=== PATIENT | male | born 1960 | race Caucasian/White ===

== ENCOUNTER → 2017-01-16 | Outpatient (CLI) | payer OTHER ==
[2017-01-16 16:34] LABS: TOTAL IRON BINDING CAPACITY 114 UG/DL (250-450)
== END ==
LOC: M LAB 15:36
PROVIDERS: ATTEND Internal Medicine Gastroenterology
DX: K76.6 Portal hypertension (principal); K70.11 Alcoholic hepatitis with ascites

== ENCOUNTER → 2017-01-18 | Outpatient (CLI) | payer OTHER ==
[2017-01-18 08:28] LABS: BASO % 0.8 % (0.0-1.0); EOS # 0.1 10^3/uL (0.0-0.50); EOS % 1.1 % (0.0-3.0); IMMATURE GRANULOCYTE % 0.4 % (0-0); LYMPH % 38.2 % (24.0-44.0); MEAN CORPUSCULAR HEMOGLOBIN 35.7 pg (27.0-33.0); MEAN CORPUSCULAR VOLUME 96.6 fl (80.0-96.0); MONO # 0.9 10^3/uL (0.0-0.8); MONO % 16.2 % (0.0-5.0); NEUTROPHILS # 2.3 10^3/uL (1.8-7.7); NEUTROPHILS % 43.3 % (36.0-66.0); PLATELET COUNT, AUTOMATED 198 10^3/uL (150-450); RED CELL DISTRIBUTION WIDTH 13.6 % (11.5-14.5); WHITE BLOOD COUNT 5.3 10^3/uL (4.0-10.0)
[2017-01-18 08:33] LABS: ADD MANUAL DIFFER NO; DIFF SLIDE NUMBER 142; MEAN CORPUSCULAR HGB CONC 36.9 g/dl (32.0-36.5)
[2017-01-18 08:39] LABS: INR 1.26
[2017-01-18 08:49] LABS: ALBUMIN/GLOBULIN RATIO 0.38 (1.00-1.93); ALKALINE PHOSPHATASE 69 U/L (45-117); ALT/SGPT 21 U/L (12-78); ANION GAP 7 MEQ/L (8-16); AST/SGOT 52 U/L (7-37); BILIRUBIN,TOTAL 2.7 MG/DL (0.2-1.0); BLOOD UREA NITROGEN 3 MG/DL (7-18); CALCIUM LEVEL 7.7 MG/DL (8.5-10.1); CARBON DIOXIDE LEVEL 34 MEQ/L (21-32); CHLORIDE LEVEL 91 MEQ/L (98-107); CREATININE FOR GFR 0.77 MG/DL (0.70-1.30); GLOMERULAR FILTRATION RATE > 60.0 (>56); GLUCOSE, FASTING 98 MG/DL (70-105); POTASSIUM SERUM 2.9 MEQ/L (3.5-5.1); SODIUM LEVEL 132 MEQ/L (136-145); TOTAL PROTEIN 7.2 GM/DL (6.4-8.2)
--- NOTE | 2017-01-18 09:19 | REP ---
Right upper quadrant sonography: History: Alcoholic hepatitis with ascites. No comparison studies. Findings: Scanning through right upper quadrant of the abdomen demonstrates coarse liver texture and increased echogenicity in the liver diffusely. This may reflect cirrhosis and poor fatty infiltration. The liver is not enlarged. No focal liver lesion is seen. Bile ducts are not visibly dilated. The common bile duct could not be seen. There is moderate to large amount of diffuse abdominal ascites. Pancreas is obscured by abdominal gas. A normal sized thin-walled gallbladder is seen without evidence of stone or polyp. No right renal abnormality is noted. The right kidney measures 10.4 x 5.3 x 4.3 cm. Impression: Moderate to large amount of ascites. Coarse liver texture micronodular liver capsular margin and increased echogenicity in the liver question cirrhosis. No focal liver lesion seen. Signed by Naga Alvarez MD 01/18/2017 11:18 A
== END ==
LOC: M RAD 08:05
PROVIDERS: ATTEND Internal Medicine Gastroenterology
DX: K70.10 Alcoholic hepatitis without ascites (principal)

== ENCOUNTER → 2017-01-20 | Outpatient (CLI) | payer OTHER ==
[~2017-01-20] MED LIST: BENA25CA4 PO; POTA20TA6 PO; PRIL20CA9 PO; PROAAER10 INH; SPIR50TA2 PO
[2017-01-20 10:54] LABS: ANION GAP 8 MEQ/L (8-16); BLOOD UREA NITROGEN 4 MG/DL (7-18); CALCIUM LEVEL 8.2 MG/DL (8.5-10.1); CARBON DIOXIDE LEVEL 34 MEQ/L (21-32); CHLORIDE LEVEL 90 MEQ/L (98-107); CREATININE FOR GFR 0.67 MG/DL (0.70-1.30); GLOMERULAR FILTRATION RATE > 60.0 (>56); GLUCOSE, FASTING 101 MG/DL (70-105); POTASSIUM SERUM 2.5 MEQ/L (3.5-5.1); SODIUM LEVEL 132 MEQ/L (136-145)
[2017-01-20 12:40] LABS: MAGNESIUM LEVEL 1.9 MG/DL (1.8-2.4)
== END ==
LOC: M LAB 09:07
PROVIDERS: ATTEND Internal Medicine Gastroenterology
DX: K70.11 Alcoholic hepatitis with ascites (principal)

== ENCOUNTER → 2017-01-23 | Outpatient (CLI) | payer OTHER ==
[2017-01-23 11:54] LABS: ANION GAP 6 MEQ/L (8-16); BLOOD UREA NITROGEN 4 MG/DL (7-18); CALCIUM LEVEL 8.4 MG/DL (8.5-10.1); CARBON DIOXIDE LEVEL 32 MEQ/L (21-32); CHLORIDE LEVEL 96 MEQ/L (98-107); CREATININE FOR GFR 0.77 MG/DL (0.70-1.30); GLOMERULAR FILTRATION RATE > 60.0 (>56); GLUCOSE, FASTING 118 MG/DL (70-105); POTASSIUM SERUM 3.2 MEQ/L (3.5-5.1); SODIUM LEVEL 134 MEQ/L (136-145)
== END ==
LOC: M LAB 10:46
PROVIDERS: ATTEND Internal Medicine Gastroenterology
DX: K70.11 Alcoholic hepatitis with ascites (principal)

== ENCOUNTER 2017-01-31 08:56 | Day surgery (SDC) | payer OTHER ==
[~2017-01-31] VITALS: Ht 180.3 cm; Wt 68.0 kg
[2017-01-31] MEDS ORDERED: NS 1,000 ML IV ONE (09:45)
[2017-01-31] MEDS ORDERED: PROPOFOL 200 MG/20 ML VIAL As Ordered ONE (10:54)
[2017-01-31] MEDS ORDERED: LIDOCAINE 2% INJ 100 MG/5 ML SDV (FOR ANES.) As Ordered ONE (10:54)
--- NOTE | 2017-01-31 11:05 | ROOR ---
Patient Name: Joe Hinds Procedure Date: 01/31/2017 10:49 AM Date of : 1960 Age: 56 Room: [facility] Gender: Male Note Status: Finalized Procedure: Upper GI endoscopy Indications: Portal hypertension rule out esophageal varices Providers: Amari DELGADO MD Referring MD: Samir Pimentel MD Requesting Provider: Medicines: Monitored Anesthesia Care Complications: No immediate complications. Procedure: Pre-Anesthesia Assessment: - The heart rate, respiratory rate, oxygen saturations, blood pressure, adequacy of pulmonary ventilation, and response to care were monitored throughout the procedure. The Endoscope was introduced through the mouth, and advanced to the second part of duodenum. The upper GI endoscopy was accomplished without difficulty. The patient tolerated the procedure well. Findings: The esophagus was normal. The stomach was normal. The examined duodenum was normal. Impression: - Normal esophagus. - Normal stomach. - Normal examined duodenum. - (there is perhaps very mild portal hypertensive gastropathy, but I see no varices in esophagus or cardia/stomach) - No specimens collected. Recommendation: - Observe patient's clinical course. - Continue present medications. - You will need Hepatoma surveillance with Ultrasound of liver and AFP(Alpha Fetoprotein) blood work every 6-8 months. I will leave this up to your primary team. - Repeat upper endoscopy in 1 year for surveillance. Amari Delgado MD Amari DELGADO MD 01/31/2017 11:05:26 AM This report has been signed electronically. Number of Addenda: 0 Note Initiated On: 01/31/2017 10:49 AM Estimated Blood Loss: Estimated blood loss: none.
[2017-01-31 11:29] VITALS: BP 121/80
== END 2017-01-31 11:30 | disposition home or self-care (01) ==
LOC: M OPP 08:56
PROVIDERS: ATTEND Internal Medicine Gastroenterology
DX: K76.6 Portal hypertension (principal); K21.9 Gastro-esophageal reflux disease without esophagitis; R12 Heartburn; K74.60 Unspecified cirrhosis of liver; R18.8 Other ascites; F17.210 Nicotine dependence, cigarettes, uncomplicated; Z79.899 Other long term (current) drug therapy

== ENCOUNTER → 2017-02-02 | Outpatient (CLI) | payer OTHER ==
[2017-02-02 11:46] LABS: ANION GAP 9 MEQ/L (8-16); BLOOD UREA NITROGEN 5 MG/DL (7-18); CALCIUM LEVEL 7.8 MG/DL (8.5-10.1); CARBON DIOXIDE LEVEL 25 MEQ/L (21-32); CHLORIDE LEVEL 103 MEQ/L (98-107); GLOMERULAR FILTRATION RATE > 60.0 (>56); GLUCOSE, FASTING 79 MG/DL (70-105); POTASSIUM SERUM 3.5 MEQ/L (3.5-5.1); SODIUM LEVEL 137 MEQ/L (136-145)
== END ==
LOC: M LAB 11:02
PROVIDERS: ATTEND Internal Medicine Gastroenterology
DX: E87.6 Hypokalemia (principal)

== ENCOUNTER → 2017-02-16 | Outpatient (CLI) | payer OTHER ==
[2017-02-16 16:40] LABS: ANION GAP 7 MEQ/L (8-16); BLOOD UREA NITROGEN 3 MG/DL (7-18); CALCIUM LEVEL 7.7 MG/DL (8.5-10.1); CARBON DIOXIDE LEVEL 28 MEQ/L (21-32); CHLORIDE LEVEL 100 MEQ/L (98-107); CREATININE FOR GFR 0.61 MG/DL (0.70-1.30); GLOMERULAR FILTRATION RATE > 60.0 (>56); GLUCOSE, FASTING 85 MG/DL (70-105); POTASSIUM SERUM 3.4 MEQ/L (3.5-5.1); SODIUM LEVEL 135 MEQ/L (136-145)
== END ==
LOC: M LAB 15:11
DX: E87.6 Hypokalemia (principal)
CPT/HCPCS: 80048

== ENCOUNTER → 2017-03-09 | Outpatient (REF) | payer OTHER ==
[2017-03-09 14:21] LABS: INR 1.09; PARTIAL THROMBOPLASTIN TIME 33.9 SECONDS (26.8-37.9); PROTHROMBIN TIME 14.3 SECONDS (12.4-14.5)
[2017-03-09 14:33] LABS: AMMONIA 29 uMOL/L (<32)
== END ==
LOC: M LAB REF 13:34
DX: K74.60 Unspecified cirrhosis of liver (principal)

== ENCOUNTER → 2017-03-14 | Outpatient (CLI) | payer OTHER | LOC: M RADPRO 09:42 | DX: R18.8 Other ascites (principal); Z79.899 Other long term (current) drug therapy | CPT/HCPCS: 49083 ==

== ENCOUNTER → 2017-04-12 | Outpatient (CLI) | payer OTHER ==
[2017-04-12 16:43] LABS: INR 1.15; PROTHROMBIN TIME 14.9 SECONDS (12.4-14.5)
[2017-04-12 16:44] LABS: PARTIAL THROMBOPLASTIN TIME 33.8 SECONDS (26.8-37.9)
[2017-04-12 16:54] LABS: ALBUMIN 2.3 GM/DL (3.2-5.2); ALBUMIN/GLOBULIN RATIO 0.52 (1.00-1.93); ALKALINE PHOSPHATASE 93 U/L (45-117); ALT/SGPT 10 U/L (12-78); ANION GAP 6 MEQ/L (8-16); AST/SGOT 19 U/L (7-37); BILIRUBIN,TOTAL 0.5 MG/DL (0.2-1.0); BLOOD UREA NITROGEN 5 MG/DL (7-18); CALCIUM LEVEL 8.3 MG/DL (8.5-10.1); CARBON DIOXIDE LEVEL 30 MEQ/L (21-32); CHLORIDE LEVEL 107 MEQ/L (98-107); CREATININE FOR GFR 0.74 MG/DL (0.70-1.30); GLOMERULAR FILTRATION RATE > 60.0 (>56); GLUCOSE, FASTING 83 MG/DL (70-100); POTASSIUM SERUM 3.7 MEQ/L (3.5-5.1); SODIUM LEVEL 143 MEQ/L (136-145); TOTAL PROTEIN 6.7 GM/DL (6.4-8.2)
[2017-04-12 18:42] LABS: BASO % 0.7 % (0.0-1.0); EOS # 0.1 10^3/uL (0.0-0.50); EOS % 1.1 % (0.0-3.0); HEMOGLOBIN 13.5 g/dl (14.0-18.0); IMMATURE GRANULOCYTE % 0.2 % (0-3.0); LYMPH # 1.7 10^3/uL (1.5-4.5); LYMPH % 30.2 % (24.0-44.0); MEAN CORPUSCULAR HEMOGLOBIN 32.7 pg (27.0-33.0); MEAN CORPUSCULAR HGB CONC 33.8 g/dl (32.0-36.5); MEAN CORPUSCULAR VOLUME 96.9 fl (80.0-96.0); MONO # 0.9 10^3/uL (0.0-0.8); MONO % 16.2 % (0.0-5.0); NEUTROPHILS # 2.9 10^3/uL (1.8-7.7); NEUTROPHILS % 51.6 % (36.0-66.0); PLATELET COUNT, AUTOMATED 211 10^3/uL (150-450); RED BLOOD COUNT 4.13 10^6/uL (4.30-6.10); RED CELL DISTRIBUTION WIDTH 13.3 % (11.5-14.5); WHITE BLOOD COUNT 5.6 10^3/uL (4.0-10.0)
== END ==
LOC: M LAB 15:40
DX: K70.31 Alcoholic cirrhosis of liver with ascites (principal)
CPT/HCPCS: 80053

== ENCOUNTER → 2017-04-27 | Outpatient (CLI) | payer OTHER | LOC: M RADPRO 08:49 | DX: K70.11 Alcoholic hepatitis with ascites (principal); Z79.899 Other long term (current) drug therapy | CPT/HCPCS: 49083 ==

== ENCOUNTER → 2017-06-15 | Outpatient (CLI) | payer OTHER ==
[2017-06-15 16:59] LABS: BASO # 0.1 10^3/uL (0.0-0.2); BASO % 0.7 % (0.0-1.0); EOS # 0.1 10^3/uL (0.0-0.50); EOS % 0.9 % (0.0-3.0); HEMATOCRIT 43.7 % (42.0-52.0); IMMATURE GRANULOCYTE % 0.3 % (0-3.0); LYMPH % 27.9 % (24.0-44.0); MEAN CORPUSCULAR HEMOGLOBIN 32.5 pg (27.0-33.0); MEAN CORPUSCULAR HGB CONC 34.3 g/dl (32.0-36.5); MEAN CORPUSCULAR VOLUME 94.8 fl (80.0-96.0); MONO # 1.2 10^3/uL (0.0-0.8); MONO % 16.5 % (0.0-5.0); NEUTROPHILS # 3.8 10^3/uL (1.8-7.7); NEUTROPHILS % 53.7 % (36.0-66.0); PLATELET COUNT, AUTOMATED 250 10^3/uL (150-450); RED BLOOD COUNT 4.61 10^6/uL (4.30-6.10); RED CELL DISTRIBUTION WIDTH 14.4 % (11.5-14.5); WHITE BLOOD COUNT 7.1 10^3/uL (4.0-10.0)
[2017-06-15 17:26] LABS: ALBUMIN 2.9 GM/DL (3.2-5.2); ALBUMIN/GLOBULIN RATIO 0.63 (1.00-1.93); ALKALINE PHOSPHATASE 85 U/L (45-117); ALT/SGPT 13 U/L (12-78); ANION GAP 5 MEQ/L (8-16); AST/SGOT 22 U/L (7-37); BILIRUBIN,TOTAL 0.6 MG/DL (0.2-1.0); BLOOD UREA NITROGEN 5 MG/DL (7-18); CALCIUM LEVEL 8.5 MG/DL (8.5-10.1); CARBON DIOXIDE LEVEL 31 MEQ/L (21-32); CHLORIDE LEVEL 101 MEQ/L (98-107); CREATININE FOR GFR 0.77 MG/DL (0.70-1.30); GLOMERULAR FILTRATION RATE > 60.0 (>56); GLUCOSE, FASTING 78 MG/DL (70-100); POTASSIUM SERUM 3.6 MEQ/L (3.5-5.1); SODIUM LEVEL 137 MEQ/L (136-145); TOTAL PROTEIN 7.5 GM/DL (6.4-8.2)
== END ==
LOC: M LAB 16:05
DX: K70.31 Alcoholic cirrhosis of liver with ascites (principal)

== ENCOUNTER → 2017-07-04 | Outpatient (CLI) | payer OTHER ==
[2017-07-04 11:18] LABS: ANION GAP 5 MEQ/L (8-16); BLOOD UREA NITROGEN 4 MG/DL (7-18); CARBON DIOXIDE LEVEL 31 MEQ/L (21-32); CHLORIDE LEVEL 102 MEQ/L (98-107); CREATININE FOR GFR 0.78 MG/DL (0.70-1.30); GLOMERULAR FILTRATION RATE > 60.0 (>56); GLUCOSE, FASTING 87 MG/DL (70-100); POTASSIUM SERUM 4.2 MEQ/L (3.5-5.1); SODIUM LEVEL 138 MEQ/L (136-145)
== END ==
LOC: M LAB 10:15
DX: E87.6 Hypokalemia (principal)
CPT/HCPCS: 80048

== ENCOUNTER → 2017-07-22 | Outpatient (CLI) | payer OTHER ==
[2017-07-22 11:11] LABS: ANION GAP 5 MEQ/L (8-16); BLOOD UREA NITROGEN 10 MG/DL (7-18); CALCIUM LEVEL 9.5 MG/DL (8.5-10.1); CARBON DIOXIDE LEVEL 32 MEQ/L (21-32); CHLORIDE LEVEL 100 MEQ/L (98-107); CREATININE FOR GFR 0.91 MG/DL (0.70-1.30); GLOMERULAR FILTRATION RATE > 60.0 (>56); GLUCOSE, FASTING 78 MG/DL (70-100); SODIUM LEVEL 137 MEQ/L (136-145)
[2017-07-22 11:13] LABS: POTASSIUM SERUM 5.4 MEQ/L (3.5-5.1)
== END ==
LOC: M LAB 10:02
DX: K70.31 Alcoholic cirrhosis of liver with ascites (principal)

== ENCOUNTER → 2017-08-01 | Outpatient (CLI) | payer OTHER | LOC: M RAD 07:01 | DX: K70.31 Alcoholic cirrhosis of liver with ascites (principal) | CPT/HCPCS: 76705 ==

== ENCOUNTER → 2017-08-14 | Outpatient (REF) | payer OTHER ==
[2017-08-15 09:48] LABS: ALBUMIN 3.3 GM/DL (3.2-5.2); ALKALINE PHOSPHATASE 88 U/L (45-117); ALT/SGPT 21 U/L (12-78); ANION GAP 8 MEQ/L (8-16); AST/SGOT 24 U/L (7-37); BILIRUBIN,TOTAL 0.4 MG/DL (0.2-1.0); BLOOD UREA NITROGEN 5 MG/DL (7-18); CALCIUM LEVEL 8.5 MG/DL (8.5-10.1); CARBON DIOXIDE LEVEL 30 MEQ/L (21-32); CHLORIDE LEVEL 103 MEQ/L (98-107); GLOMERULAR FILTRATION RATE > 60.0 (>56); GLUCOSE, FASTING 81 MG/DL (70-100); POTASSIUM SERUM 4.3 MEQ/L (3.5-5.1); SODIUM LEVEL 141 MEQ/L (136-145); TOTAL PROTEIN 7.4 GM/DL (6.4-8.2)
[2017-08-15 09:54] LABS: ALPHA FETOPROTEIN TUMOR QUANT 4.9 NG/ML (<8.1)
== END ==
LOC: M LABDRWAD 09:02
DX: K70.31 Alcoholic cirrhosis of liver with ascites (principal)
CPT/HCPCS: 80053

== ENCOUNTER → 2017-11-15 | Outpatient (REF) | payer OTHER ==
[2017-11-15 12:26] LABS: BASO % 0.8 % (0.0-1.0); EOS # 0.1 10^3/uL (0.0-0.50); EOS % 1.7 % (0.0-3.0); HEMATOCRIT 48.3 % (42.0-52.0); HEMOGLOBIN 16.3 g/dl (13.5-17.5); IMMATURE GRANULOCYTE % 0.2 % (0-3.0); LYMPH # 1.4 10^3/uL (1.5-4.5); LYMPH % 29.8 % (24.0-44.0); MEAN CORPUSCULAR HEMOGLOBIN 34.8 pg (27.0-33.0); MEAN CORPUSCULAR HGB CONC 33.7 g/dl (32.0-36.5); MEAN CORPUSCULAR VOLUME 103.2 fl (80.0-96.0); MONO # 0.7 10^3/uL (0.0-0.8); MONO % 13.7 % (0.0-5.0); NEUTROPHILS # 2.6 10^3/uL (1.8-7.7); NEUTROPHILS % 53.8 % (36.0-66.0); PLATELET COUNT, AUTOMATED 193 10^3/uL (150-450); RED BLOOD COUNT 4.68 10^6/uL (4.30-6.10); RED CELL DISTRIBUTION WIDTH 14.5 % (11.5-14.5); WHITE BLOOD COUNT 4.8 10^3/uL (4.0-10.0)
[2017-11-15 12:34] LABS: INR 1.02; PROTHROMBIN TIME 13.5 SECONDS (12.1-14.4)
[2017-11-15 14:40] LABS: ALBUMIN 3.5 GM/DL (3.2-5.2); ALBUMIN/GLOBULIN RATIO 0.88 (1.00-1.93); ALKALINE PHOSPHATASE 83 U/L (45-117); ALT/SGPT 19 U/L (12-78); ANION GAP 9 MEQ/L (8-16); AST/SGOT 23 U/L (7-37); BILIRUBIN,TOTAL 0.6 MG/DL (0.2-1.0); BLOOD UREA NITROGEN 5 MG/DL (7-18); CALCIUM LEVEL 9.1 MG/DL (8.5-10.1); CARBON DIOXIDE LEVEL 26 MEQ/L (21-32); CHLORIDE LEVEL 106 MEQ/L (98-107); CREATININE FOR GFR 0.82 MG/DL (0.70-1.30); GLOMERULAR FILTRATION RATE > 60.0 (>56); GLUCOSE, FASTING 106 MG/DL (70-100); POTASSIUM SERUM 4.4 MEQ/L (3.5-5.1); SODIUM LEVEL 141 MEQ/L (136-145); TOTAL PROTEIN 7.5 GM/DL (6.4-8.2)
== END ==
LOC: M LABDRWAD 12:11
DX: K70.31 Alcoholic cirrhosis of liver with ascites (principal); K70.11 Alcoholic hepatitis with ascites

== ENCOUNTER → 2018-02-07 | Outpatient (REF) | payer OTHER ==
[~2018-02-07] MED LIST changes: -SPIR50TA2 PO; +SPIR50TA4 PO
[2018-02-07 12:47] LABS: BASO # 0.1 10^3/uL (0.0-0.2); BASO % 0.9 % (0.0-1.0); EOS # 0.1 10^3/uL (0.0-0.50); EOS % 0.9 % (0.0-3.0); HEMATOCRIT 56.1 % (42.0-52.0); LYMPH # 1.3 10^3/uL (1.5-4.5); LYMPH % 19.4 % (24.0-44.0); MEAN CORPUSCULAR HEMOGLOBIN 35.2 pg (27.0-33.0); MEAN CORPUSCULAR HGB CONC 35.8 g/dl (32.0-36.5); MEAN CORPUSCULAR VOLUME 98.2 fl (80.0-96.0); MONO % 15.2 % (0.0-5.0); NEUTROPHILS # 4.2 10^3/uL (1.8-7.7); NEUTROPHILS % 63.1 % (36.0-66.0); PLATELET COUNT, AUTOMATED 203 10^3/uL (150-450); RED BLOOD COUNT 5.71 10^6/uL (4.30-6.10); WHITE BLOOD COUNT 6.6 10^3/uL (4.0-10.0)
[2018-02-07 13:00] LABS: INR 1.04; PROTHROMBIN TIME 13.7 SECONDS (12.1-14.4)
[2018-02-07 13:12] LABS: ALBUMIN 3.9 GM/DL (3.2-5.2); ALT/SGPT 51 U/L (12-78); BILIRUBIN,TOTAL 0.9 MG/DL (0.2-1.0); BLOOD UREA NITROGEN 5 MG/DL (7-18); CALCIUM LEVEL 9.5 MG/DL (8.5-10.1); CARBON DIOXIDE LEVEL 30 MEQ/L (21-32); CHLORIDE LEVEL 97 MEQ/L (98-107); CREATININE FOR GFR 0.92 MG/DL (0.70-1.30); GLOMERULAR FILTRATION RATE > 60.0 (>56); GLUCOSE, FASTING 106 MG/DL (70-100); POTASSIUM SERUM 4.2 MEQ/L (3.5-5.1); SODIUM LEVEL 136 MEQ/L (136-145); TOTAL PROTEIN 8.6 GM/DL (6.4-8.2)
[2018-02-07 13:26] LABS: HEMOGLOBIN 20.1 g/dl (13.5-17.5)
== END ==
LOC: M LAB REF 12:29 → M LABDRWAD 12:29
PROVIDERS: ATTEND Internal Medicine Gastroenterology
DX: K70.31 Alcoholic cirrhosis of liver with ascites (principal); K70.11 Alcoholic hepatitis with ascites

== ENCOUNTER → 2018-02-26 | Outpatient (CLI) | payer OTHER ==
--- NOTE | 2018-02-27 04:18 | REP ---
Clinical: Thrombocytopenia. Technique: Real time christensen scale ultrasound examination using curved array transducer. Comparison: 08/01/2017. Findings: The liver is increased echogenicity with poor through transmission suggesting fatty infiltration and/or hepatocellular disease. No focal hepatic lesion identified. Pancreas is incompletely evaluated due to interposed bowel gas. Gallbladder demonstrates stable gallstone versus small polyp with mild gallbladder wall thickening. No biliary ductal dilatation is appreciated and the common bile duct measures 2.9 mm diameter. The right kidney is normal in reniform shape without hydronephrosis and measures 10.8 x 6.0 x 6.3 cm including renovascular calcifications and 1 cm upper pole cyst. Trace ascites noted in the right upper quadrant. Impression: Limited examination due to body habitus and technical factors. Findings suggesting hepatocellular disease. Mild stable gallbladder wall thickening and small gallstone and/or polyp unchanged. Electronically Signed by Aneudy Mott MD 02/27/2018 04:10 A
== END ==
LOC: M RAD 08:41
PROVIDERS: ATTEND Internal Medicine Gastroenterology
DX: D69.6 Thrombocytopenia, unspecified (principal)

== ENCOUNTER → 2018-04-23 | Outpatient (REF) | payer OTHER ==
[2018-04-23 13:43] LABS: BASO # 0.1 10^3/uL (0.0-0.2); EOS % 0.8 % (0.0-3.0); HEMATOCRIT 62.3 % (42.0-52.0); LYMPH # 1.3 10^3/uL (1.5-4.5); LYMPH % 26.7 % (24.0-44.0); MEAN CORPUSCULAR HEMOGLOBIN 34.3 pg (27.0-33.0); MEAN CORPUSCULAR HGB CONC 34.2 g/dl (32.0-36.5); MEAN CORPUSCULAR VOLUME 100.3 fl (80.0-96.0); MONO # 0.9 10^3/uL (0.0-0.8); MONO % 16.9 % (0.0-5.0); NEUTROPHILS # 2.7 10^3/uL (1.8-7.7); PLATELET COUNT, AUTOMATED 180 10^3/uL (150-450); RED BLOOD COUNT 6.21 10^6/uL (4.30-6.10)
[2018-04-23 13:45] LABS: HEMOGLOBIN 21.3 g/dl (13.5-17.5)
== END ==
LOC: M LABDRWAD 12:31
PROVIDERS: ATTEND Internal Medicine Gastroenterology
DX: K70.31 Alcoholic cirrhosis of liver with ascites (principal)

== ENCOUNTER → 2018-05-10 | Outpatient (CLI) | payer OTHER ==
[~2018-05-10] MED LIST changes: +GASTROGRAFIN SOLUTION 30ML (Q9963) As Ordered ONE; +ISOVUE-370 76% 125ML VIAL (Q9967 PER ML) As Ordered ONE; +OMEP20CA3 PO; +TORS10TA3 PO; +TUMS500C PO
--- NOTE | 2018-05-11 16:38 | REP ---
Clinical: Cirrhosis. Liver mass. Technique: Axial arterial, portal venous phase, and delayed phase images of the abdomen using 100 ml Isovue 370 intravenous contrast material with coronal and sagittal re-formations. Findings: Liver demonstrates a subtle nodular contour and somewhat coarsened echotexture consistent with cirrhosis. There appears to be a very subtle vague 4.9 cm mildly hypodense round mass along the medial inferior right lobe just lateral to the caudate lobe best identified on delayed sequence images 42-53. Spleen, pancreas, bilateral adrenal glands are normal. Kidneys demonstrate simple benign cystic changes. Cholelithiasis noted without evidence for acute cholecystitis. No significant, obvious abdominal adenopathy. No ascites. No free air. Visualized enteric system is without obstruction or acute inflammatory process. Impression: 1. Heterogeneous changes to the liver consistent with cirrhosis. A very subtle 4.9 cm rounded hepatic mass medial and inferior to the caudate lobe within the right hepatic lobe is suspected. Pre and postcontrast MRI using hepatic mass protocol may be warranted. No associated adenopathy or ascites appreciated 2. Cholelithiasis. Electronically Signed by Aneudy Mott MD 05/11/2018 04:28 P
== END ==
LOC: M RAD 13:31
PROVIDERS: ATTEND Internal Medicine Medical Oncology
DX: K74.60 Unspecified cirrhosis of liver (principal); K76.89 Other specified diseases of liver; K80.20 Calculus of gallbladder without cholecystitis without obstruction
CPT/HCPCS: 74160; Q9963; Q9967

== ENCOUNTER → 2018-05-18 | Outpatient (CLI) | payer OTHER ==
[~2018-05-18] MED LIST changes: -GASTROGRAFIN SOLUTION 30ML (Q9963) As Ordered ONE; -ISOVUE-370 76% 125ML VIAL (Q9967 PER ML) As Ordered ONE; +PROHANCE 279.3MG/ML 15ML VIAL (A9576) As Ordered ONE
--- NOTE | 2018-05-18 14:42 | REP ---
MRI EXAM OF THE ABDOMEN WITHOUT AND WITH IV GADOLINIUM: HISTORY: Elevated erythropoietin level. Cirrhosis. Possible hepatic mass. Comparison CT study May 10, 2018. TECHNIQUE: Axial coronal imaging planes utilized. T1- and T2-weighted sequences include spin-echo, fast spin echo, diffusion, in and out of phase, and dynamically acquired sequential post gadolinium enhanced images. Gadolinium enhancement dose of 15 mL of intravenous ProHance. MRI FINDINGS: There is no evidence of upper abdominal ascites. There are small cysts in each kidney, the largest is in the upper pole on the right measuring 1.8 cm in greatest diameter. There is evidence of mild gallbladder wall thickening and some possible pericholecystic fluid is seen. The common bile duct is normal in caliber. No intrahepatic ductal dilation is seen. Main pancreatic duct is unremarkable. No pancreatic lesion is observed. The CT finding of a rounded 4.9 cm inferior caudate lobe mass in the liver are not seen. There is a geographic pattern of fatty infiltration of the liver including this portion of the caudate lobe but signal intensity is otherwise normal throughout the liver. There is an accessory splenule. The spleen is not enlarged. No adrenal lesion is seen. Dynamically acquired sequential post gadolinium enhanced images show no abnormal vascularity. There is no evidence of mass lesion on postcontrast imaging. IMPRESSION: Geographic pattern of fatty infiltration of the liver. No hepatic mass lesion is seen. Small bilateral renal cortical cysts. Gallbladder wall thickening and mild pericholecystic fluid. Electronically Signed by Naga Alvarez MD 05/18/2018 03:33 P
== END ==
LOC: M RAD 10:31
PROVIDERS: ATTEND Nurse Practitioner Family
DX: K74.60 Unspecified cirrhosis of liver (principal); K76.0 Fatty (change of) liver, not elsewhere classified; N28.1 Cyst of kidney, acquired
CPT/HCPCS: 74183; A9576

== ENCOUNTER → 2018-10-09 | Outpatient (CLI) | payer OTHER ==
[~2018-10-09] MED LIST changes: -OMEP20CA3 PO; +OMEP20CA4 PO; -PROHANCE 279.3MG/ML 15ML VIAL (A9576) As Ordered ONE
--- NOTE | 2018-10-09 15:15 | REP ---
HISTORY: Tobacco abuse. As per the protocol only lung window images were sent to the read station for interpretation. Prior examination for comparison is 11/07/2008. No abnormal nodules, masses or opacities have developed since the last exam. Incidental calcified granuloma again seen in the right lower lobe. Grossly, the mediastinum and pulmonary blaine are stable showing no evidence of an abnormality. Grossly, the imaged upper abdomen and imaged osseous structures are unchanged and showing no evidence of an abnormality. IMPRESSION: Lung-RADS category 1 examination. Yearly screening is recommended as per the revised Kait Society criteria. Electronically Signed by Kristopher Irvin DO 10/09/2018 03:37 P
== END ==
LOC: M RAD 13:33
PROVIDERS: ATTEND Physician Assistant
DX: F17.210 Nicotine dependence, cigarettes, uncomplicated (principal); Z12.2 Encounter for screening for malignant neoplasm of respiratory organs

== ENCOUNTER → 2018-10-19 | Outpatient (CLI) | payer OTHER ==
[~2018-10-19] MED LIST changes: +OMEP1CAP73 PO; -OMEP20CA4 PO
--- NOTE | 2018-10-24 08:05 | SLEEPCENT ---
DATE OF PROCEDURE: 10/19/2018 ORDERING PROVIDER: Samuel Nolen PA-C, copy to Dr. Pimentel. INTERPRETATION: Nocturnal polysomnography was performed for evaluation of sleep physiology in this patient with a history of excessive somnolence and nonrestorative sleep. 8 hours and 17 minutes of data were reviewed. There were 208 minutes of sleep identified. Sleep latency was prolonged at 182.5 minutes. Rapid eye movement (REM) latency was normal at 80.5 minutes. Sleep architecture, once established, was reasonably good with a prolonged period of wake resulting in reduced sleep efficiency of 42.7%. The patient's electrocardiogram showed sinus rhythm with an average heart rate of 82 beats per minute. EEG showed reasonably normal waveforms for awake and sleep. There were only two respiratory events identified of 10 seconds in duration or greater for an apnea-hypopnea index of 0.6. Snoring was noted over the course of the study and respiratory related arousal index of 0.9. There was significant limb activity early in the study. Only two trains of 30 events noted. Limb movement arousal index however was 16.4. IMPRESSION: 1. Periodic limb movement disorder (G47.61). Limb movement arousal index 16.4 2. Snoring. RECOMMENDATIONS: Interventions to reduce the frequency arousal from limb activity should improve the quality of the patient's sleep.
== END ==
LOC: M SLEEP 19:35
PROVIDERS: ATTEND Physician Assistant
DX: R40.0 Somnolence (principal)

== ENCOUNTER → 2019-02-04 | Outpatient (CLI) | payer OTHER ==
[~2019-02-04] MED LIST changes: +OMEP-172 PO; -OMEP1CAP73 PO
[2019-02-04 10:15] LABS: BASO % 0.6 % (0.0-1.0); EOS % 0.3 % (0.0-3.0); HEMATOCRIT 46.2 % (42.0-52.0); HEMOGLOBIN 15.7 g/dl (13.5-17.5); LYMPH % 15.2 % (24.0-44.0); MEAN CORPUSCULAR HEMOGLOBIN 33.5 pg (27.0-33.0); MEAN CORPUSCULAR VOLUME 98.7 fl (80.0-96.0); MONO # 0.9 10^3/uL (0.0-0.8); MONO % 13.2 % (0.0-5.0); NEUTROPHILS # 4.8 10^3/uL (1.5-8.5); NEUTROPHILS % 70.3 % (36.0-66.0); PLATELET COUNT, AUTOMATED 246 10^3/uL (150-450); RED BLOOD COUNT 4.68 10^6/uL (4.30-6.10); WHITE BLOOD COUNT 6.8 10^3/uL (4.0-10.0)
[2019-02-04 10:48] LABS: ALBUMIN 3.3 GM/DL (3.2-5.2); ALT/SGPT 18 U/L (12-78); BILIRUBIN,TOTAL 1.3 MG/DL (0.2-1.0); BLOOD UREA NITROGEN 6 MG/DL (7-18); CARBON DIOXIDE LEVEL 31 MEQ/L (21-32); CHLORIDE LEVEL 101 MEQ/L (98-107); CREATININE FOR GFR 0.78 MG/DL (0.70-1.30); GLOMERULAR FILTRATION RATE > 60.0 (>56); GLUCOSE, FASTING 115 MG/DL (70-100); POTASSIUM SERUM 4.3 MEQ/L (3.5-5.1); SODIUM LEVEL 138 MEQ/L (136-145); TOTAL PROTEIN 7.9 GM/DL (6.4-8.2)
== END ==
LOC: M LAB 09:43
PROVIDERS: ATTEND Internal Medicine Gastroenterology
DX: K70.31 Alcoholic cirrhosis of liver with ascites (principal)

== ENCOUNTER → 2019-02-05 | Outpatient (CLI) | payer OTHER ==
--- NOTE | 2019-02-05 09:20 | REP ---
Right upper quadrant sonography: History: Cirrhosis with ascites. Comparison CT study and MRI study April 2018. Comparison sonography February 26, 2018. Sonographic findings: Scan quality is inhibited by patient body habitus and bowel gas as before. There are multiple non-shadowing echogenic foci in the neck of the gallbladder. There is mild gallbladder wall thickening again noted, just over 0.3 cm. The common bile duct is normal at 0.4 cm in thickness. No focal hepatic lesion is seen but there is diffusely hyperechoic liver parenchyma which insonates poorly due to fatty infiltration. Limited views of the pancreas show no abnormality. There is no visible ascites. The right kidney measures 11.0 x 5.6 x 5.9 cm. There is an echogenic focus 2.8 mm in diameter in the right renal cortex which may be a small calcification or a focal fibrosis. No hydronephrosis seen. Impression: Fatty liver change. Limited image quality. Sludge versus non-shadowing calculi in the neck of the gallbladder. Minimal gallbladder wall thickening. Electronically Signed by Naga Alvarez MD 02/05/2019 03:25 P
== END ==
LOC: M RAD 08:15
PROVIDERS: ATTEND Internal Medicine Gastroenterology
DX: K70.31 Alcoholic cirrhosis of liver with ascites (principal)

== ENCOUNTER 2019-03-26 16:28 | Inpatient (IN) | payer OTHER ==
[~2019-03-26] VITALS: Ht 180.3 cm; Wt 59.6 kg
[2019-03-26] MEDS: BENZOCAINE 10% 9GM TUBE (ANBESOL) MT SCH
[~2019-03-26 16:28] MED LIST changes: -OMEP-172 PO; +OMEP1CAP73 PO
[2019-03-26] MEDS ORDERED: VENTAER PO (16:36)
[2019-03-26 17:41] LABS: BASO # 0.1 10^3/uL (0.0-0.2); BASO % 0.5 % (0.0-1.0); EOS % 0.1 % (0.0-3.0); HEMATOCRIT 43.6 % (42.0-52.0); HEMOGLOBIN 14.7 g/dl (13.5-17.5); LYMPH # 1.4 10^3/uL (1.5-5.0); LYMPH % 14.6 % (24.0-44.0); MEAN CORPUSCULAR HEMOGLOBIN 31.2 pg (27.0-33.0); MEAN CORPUSCULAR HGB CONC 33.7 g/dl (32.0-36.5); MEAN CORPUSCULAR VOLUME 92.6 fl (80.0-96.0); MONO % 11.1 % (0.0-5.0); NEUTROPHILS # 6.8 10^3/uL (1.5-8.5); NEUTROPHILS % 73.4 % (36.0-66.0); PLATELET COUNT, AUTOMATED 244 10^3/uL (150-450); RED BLOOD COUNT 4.71 10^6/uL (4.30-6.10); WHITE BLOOD COUNT 9.3 10^3/uL (4.0-10.0)
[2019-03-26 17:59] LABS: ALBUMIN 3.5 GM/DL (3.2-5.2); ALT/SGPT 14 U/L (12-78); BILIRUBIN,DIRECT 0.3 MG/DL (0.0-0.2); BILIRUBIN,TOTAL 0.7 MG/DL (0.2-1.0); BLOOD UREA NITROGEN 17 MG/DL (7-18); CALCIUM LEVEL 9.5 MG/DL (8.5-10.1); CARBON DIOXIDE LEVEL 31 MEQ/L (21-32); CHLORIDE LEVEL 96 MEQ/L (98-107); CREATININE FOR GFR 0.76 MG/DL (0.70-1.30); GLOMERULAR FILTRATION RATE > 60.0 (>56); GLUCOSE, FASTING 92 MG/DL (70-100); POTASSIUM SERUM 3.5 MEQ/L (3.5-5.1); SODIUM LEVEL 133 MEQ/L (136-145); TOTAL PROTEIN 8.1 GM/DL (6.4-8.2)
[2019-03-26] MEDS ORDERED: NS 1,000 ML IV SCH (18:15)
[2019-03-26] MEDS ORDERED: ISOVUE-370 76% 100ML VIAL (Q9967) As Ordered ONE (18:25)
--- NOTE | 2019-03-26 18:58 | REPVR ---
PROCEDURE INFORMATION: Exam: CT Neck With Contrast Exam date and time: 03/26/2019 6:14 PM Age: 59 years old Clinical indication: Dysphagia / difficulty swallowing; Throat pain; Additional info: Sore throat, dysphagia, odynophagia TECHNIQUE: Imaging protocol: Computed tomography images of the neck with intravenous contrast. Radiation optimization: All CT scans at this facility use at least one of these dose optimization techniques: automated exposure control; mA and/or kV adjustment per patient size (includes targeted exams where dose is matched to clinical indication); or iterative reconstruction. Contrast material: ISOVUE 370; Contrast volume: 75 ml; Contrast route: IV; COMPARISON: No relevant prior studies available. FINDINGS: Sinuses: There is a left maxillary sinus air-fluid level. Nasopharynx: Unremarkable. Oropharynx: Unremarkable. No significant tonsillar enlargement. Hypopharynx: Unremarkable Larynx: There is a supraglottic laryngeal mass on the left. The left aryepiglottic fold is markedly lobulated and thickened. The epiglottis is thickened and irregular, asymmetric to the left. There is infiltration of the fat between the supraglottic larynx and left hyoid. No extension to the true vocal cords. Retropharyngeal space: Unremarkable. Submandibular/Parotid glands: Normal. Glands are normal in size. Thyroid: Normal. No enlarged or calcified nodules. Lymph nodes: Series 201, image 34, abnormal left level 2 jugular lymph node measuring 2.5 by 1.6 cm within abnormal hypoenhancing center. Craniocaudad dimension is 3 centimetres. Slightly medial to this is a 2nd abnormally enhancing lymph node with short axis of 12 mm. No enlarged or abnormally enhancing lymph nodes on the right. Trachea: Visualized trachea is unremarkable. Lungs: Unremarkable as visualized. Bones/joints: Unremarkable. No acute fracture. Soft tissues: Unremarkable. No significant soft tissue swelling. IMPRESSION: 1. Left supraglottic mass. There is thickening of the epiglottis asymmetric to the left. Although the time course of symptoms is not provided the appearance is more consistent with neoplasm rather than inflammatory disease. 2. Enlarged and irregularly enhancing level 2 left jugular lymph nodes highly suspicious for metastatic adenopathy. Electronically signed by: Scar Barron On 03/26/2019 18:58:16 PM
[2019-03-26] MEDS ORDERED: cefTRIAXone SOD 1 GM in D5W MINI-BAG PLUS 50 ML IV ONE (19:45)
--- NOTE | 2019-03-26 19:45 | HPEPDOC ---
[facility] Medical History & Physical Date of Admission Mar 26, 2019 Date of Service: Mar 26, 2019 Primary Care Physician: JACLYN LEYVA M.D. Attending Physician: CHRISTIAN COLLINS MD History and Physical TIME OF SERVICE: 8:36 PM CHIEF COMPLAINT: Difficulty swallowing HISTORY OF PRESENT ILLNESS: This is a 51-year-old male that presents with complaints gradually worsening of dysphasia for 2 weeks. Whenever he tries to consume solids, the food gets stuck in his throat and he has to force himself to spit it out; he has been able to swallow some liquids and has a muffled voice. Associated symptoms include coughing, fevers and weight loss. He denies having difficulty breathing, sick co ntacts, or night sweats. REVIEW OF SYSTEMS: 12 point review of systems negative except as listed in HPI PAST MEDICAL/ SURGICAL HISTORY: COPD Periodic limb movement disorder Alcoholic liver cirrhosis. 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 HOME MEDICATIONS: Please see below. PHYSICAL EXAMINATION: VITAL SIGNS: Please see below. GEN: Cachectic / voice is muffled INTEGUMENT: not flushed/ not jaundice CVS: RRR/NMRG/no lower extremity edema LUNGS: clear to auscultation bilaterally on room air ABDOMEN: Contour (scaphoid) / soft & not tender with palpation MSK/EXTREMITIES: range of motion intact in all 4 extremities NEURO: CN 2-12 are grossly intact / speech is not dysarthric PSYCH: alert and oriented to person place and time/ able to understand and follow all commands LABORATORY DATA: See below. IMAGING: CT neck " IMPRESSION: 1. Left supraglottic mass. There is thickening of the epiglottis asymmetric to the left. Although the time course of symptoms is not provided the appearance is more consistent with neoplasm rather than inflammatory disease. 2. Enlarged and irregularly enhancing level 2 left jugular lymph nodes highly suspicious for metastatic adenopathy. " ASSESSMENT: Mr. Hinds is a 59-year-old male with a history of COPD, liver cirrhosis, and tobacco abuse who is admitted for evaluation of a supraglottic mass suspicious for cancer. PLAN: 1. Progressive dysphasia 2/2 left supraglottic mass. 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 Plan: Admit to ICU/continuous pulse oximeter/ENT consult/nothing by mouth/IV fluids/continue with Zosyn /pending biopsy results the patient may be referred to oncology 2. COPD 2/2 tobacco abuse - Plan: Albuterol when necessary /Nicotine patch/smoking cessation education 3. Protein calorie nutrition with BMI of 17 - Plan: The daytime team may cons ider ordering a dietitian consult DVT PROPHYLAXIS: SCDs DISPOSITION: Home vs placement after more than 2 midnight's stay Vital Signs Vital Signs Date Time Temp Pulse Resp B/P (MAP) Pulse Ox O2 Delivery O2 Flow Rate FiO2 03/26/19 18:15 98.5 92 16 113/66 (82) 98 Room Air Laboratory Data Labs 24H Laboratory Tests 2 03/26/19 17:21: Immature Granulocyte % (Auto) 0.3, Neutrophils (%) (Auto) 73.4H, Lymphocytes (%) (Auto) 14.6L, Monocytes (%) (Auto) 11.1H, Eosinophils (%) (Auto) 0.1, Basophils (%) (Auto) 0.5, Neutrophils # (Auto) 6.8, Lymphocytes # (Auto) 1.4L, Monocytes # (Auto) 1.0H, Eosinophils # (Auto) 0.0, Basophils # (Auto) 0.1, Nucleated Red Blood Cells % (auto) 0.0, Anion Gap 6L, Glomerular Filtration Rate > 60.0, Calcium Level 9.5, Total Bilirubin 0.7, Direct Bilirubin 0.3H, Aspartate Amino Transf (AST/SGOT) 20, Alanine Aminotransferase (ALT/SGPT) 14, Alkaline Phosphatase 66, Total Protein 8.1, Albumin 3.5, Albumin/Globulin Ratio 0.76L CBC/BMP Laboratory Tests 03/26/19 17:21 Home Medications Scheduled Nicotine (Nicotine Patch) 14 Mg Patch.td24, 1 PATCH TD QPM Pantoprazole Sodium (Protonix) 40 Mg Granpkt.dr, 40 MG PO qam Scheduled PRN Albuterol Sulfate (Ventolin Hfa) 18 Gm Hfa.aer.ad, 1 PUFF PO Q4H PRN for SOB/WHEEZING Benzocaine/Menthol/Zinc Chlor (Orajel 3X Mouth Sores Gel) 5.1 Gm Gel..gram., 1 APPLIC MT QID PRN for TOOTH ACHE Allergies Coded Allergies: No Known Allergies (Unverified , 01/26/17) A-FIB/CHADSVASC A-FIB History Current/History of A-Fib/PAF?: No Current PO Anticoag Therapy: No CHRISTIAN COLLINS MD Mar 26, 2019 19:45
[2019-03-26] MEDS ORDERED: ORAJGEL3 MT (20:30)
[2019-03-26] MEDS ORDERED: NICOTINE 21MG/24HR 1 EA TRANSDERMAL TD ONE (20:30)
[2019-03-26] MEDS: NICOTINE 14 MG/24 HR TRANSDERMAL TD SCH (21:00)
[2019-03-26] MEDS: D5W/0.9% SODIUM CHLORIDE 1,000 ML IV SCH (21:54)
[2019-03-26 22:00] VITALS: BP 113/68
[2019-03-27] VITALS (18 sets, daily range): BP systolic 100–138; BP diastolic 61–88
[2019-03-27] MEDS: ALBUTEROL SULFATE 2.5 MG/0.5 ML INH NEB SOLN NEB PRN (02:22)
[2019-03-27 05:10] LABS: HEMATOCRIT 40.2 % (42.0-52.0); HEMOGLOBIN 13.6 g/dl (13.5-17.5); MEAN CORPUSCULAR HEMOGLOBIN 31.8 pg (27.0-33.0); MEAN CORPUSCULAR HGB CONC 33.8 g/dl (32.0-36.5); MEAN CORPUSCULAR VOLUME 93.9 fl (80.0-96.0); PLATELET COUNT, AUTOMATED 195 10^3/uL (150-450); RED BLOOD COUNT 4.28 10^6/uL (4.30-6.10); WHITE BLOOD COUNT 5.5 10^3/uL (4.0-10.0)
[2019-03-27 05:21] LABS: BLOOD UREA NITROGEN 11 MG/DL (7-18); CALCIUM LEVEL 9.1 MG/DL (8.5-10.1); CARBON DIOXIDE LEVEL 31 MEQ/L (21-32); CHLORIDE LEVEL 104 MEQ/L (98-107); GLOMERULAR FILTRATION RATE > 60.0 (>56); GLUCOSE, FASTING 98 MG/DL (70-100); INR 1.17; POTASSIUM SERUM 3.7 MEQ/L (3.5-5.1); PROTHROMBIN TIME 14.7 SECONDS (11.8-14.0); SODIUM LEVEL 138 MEQ/L (136-145)
[2019-03-27] MEDS: BENZOCAINE 10% 9GM TUBE (ANBESOL) MT SCH ×3 (08:33→21:24)
[2019-03-27] MEDS: D5W/0.9% SODIUM CHLORIDE 1,000 ML IV SCH (12:56)
--- NOTE | 2019-03-27 13:12 | IPNPDOC ---
Subjective Date Seen The patient was seen on 03/27/19. Subjective Chief Complaint/HPI Mr. Hinds is a 59 year old male who presented to the ED with worsening difficulty swallowing solids, muffled voice, cough, fevers and weight loss. CT neck showed Left Supraglottic Mass. Pt was admitted to the ICU pending ENT consult. This morning he is seen laying in bed. Mr. Hinds recalls he did not have these Sx over or Wirt. Instead he definitely recalls that during his birthday dinner, he noticed a little bit of pie crust got stuck as he swallowed. His stated Sx worsened from then. He started niticing his arms were thinner, the 'little gut' he previously had was gone and his pants were loose. He described being able to swallow liquids but choking on foods unless he is very careful to take tiny amts and chews for along time. Pt also has a Dx of alcoholism in remission as of 02/05. He reported a Dx of Cirrhosis which prompted him to give up alcohol. Pt has smoked since he was 19yo. He smokes at least half PPD. General: Reports: Night Sweats; Denies: Chills, Fatigue, Malaise, Normal Appetite (see HPI ) Constitutional: Reports: Chills, Night Sweats; Denies: Fever Eyes: Reports: Vision change; Denies: Pain ENT: Reports: Dysphagia; Denies: Head Aches Skin: Denies: Rash Pulmonary: Reports: Cough; Denies: Dyspnea Cardiovascular: Denies: Chest Pain, Palpitations, Edema, Lt Headedness Gastrointestinal: Denies: Nausea, Vomiting, Abdominal Pain, Diarrhea, Constipation Genitourinary: Denies: Dysuria Hematologic: Denies: Bruising Musculoskeletal: Denies: Neck Pain, Back Pain, Joint Pain, Muscle Pain, Spasms Neurological: Reports: Change in speech; Denies: Confusion Psych: Reports: Mood Normal; Denies: Memory Issues (issues keeping his days straight) Objective Physical Examination General Exam: Positive: Alert, Other (Cachexic) Eye Exam: Positive: Conjunctiva & lids normal; Negative: Sclera icteric ENT Exam: Positive: Atraumatic, Pharynx Normal; Negative: Mucous membr. moist/pink (mucus membranes are dry), Pharyngeal Edema Neck Exam: Positive: Supple, Other (L sided enlarged lymph node vs mass); Negative: thyromegaly Chest Exam: Positive: Clear to auscultation, Wheezing Heart Exam: Positive: Rate Normal, Normal S1, Normal S2, Rubs; Negative: Gallops, Murmurs Telemetry: Positive: No significant arrhythmia Abdomen Exam: Positive: Normal bowel sounds, Soft; Negative: Tenderness Extremity Exam: Negative: Clubbing, Cyanosis, Edema Skin Exam: Positive: Nl turgor and temperature Neuro Exam: Positive: Cranial Nerves 3-12 NL; Negative: Normal Speech (muffled pseeach ) Psych Exam: Positive: Mood NL, Oriented x 3 Assessment /Plan Assessment Mr. Hinds is a 59 year old male who presented to the ED with worsening difficulty swallowing solids, muffled voice, cough, fevers and weight loss. CT neck showed Left Supraglottic Mass. Pt was admitted to the ICU pending ENT consult. Pt has a PMHx which includes: COPD, Alcoholic Liver Cirrhosis, Periodic limb movement disorder, ?Iron overload 2/2 multiple transfusions, Alcoholism (in remission), current everyday smoker. IMAGING: CT neck " IMPRESSION: 1. Left supraglottic mass. There is thickening of the e piglottis asymmetric to the left. Although the time course of symptoms is not provided the appearance is more consistent with neoplasm rather than inflammatory disease. 2. Enlarged and irregularly enhancing level 2 left jugular lymph nodes highly suspicious for metastatic adenopathy. " Progressive dysphasia 2/2 left supraglottic mass, less likely 2/2 infectious etiology - Dr. Vicente - ENT now on consult. Further management as per ENT. - Pt declined sequentials; Lovenox on hold in anticipation of procedure per ENT. Start post-op. - Otherwise, continue current management: ICU with continuous pulse ox, NPO, IVF, Zosyn. COPD - Current cigarette smoker with 40 year smoking history - Continue albuterol prn, nicotine patch, smoking cessation eduction Protein Calorie Malnutrition - Currently NPO and reports he is hungry and thirsty - Progress to a liquid/soft diet post-procedure this afternoon as indicated Plan/VTE VTE Prophylaxis Ordered?: No (on hold following ENT and likely procedure. Start Lovenox post-procedure.) VS, I&O, 24H, Fishbone Vital Signs/I&O Vital Signs Date Time Temp Pulse Resp B/P (MAP) Pulse Ox O2 Delivery O2 Flow Rate FiO2 2/5/20 10:00 70 115/71 (86) 100 Room Air 03/27/19 07:43 97.0 18 I&O- Last 24 Hours up to 6 AM 03/27/19 06:00 Intake Total 470 ml Output Total 710 ml Balance -240 ml Laboratory Data 24H LABS Laboratory Tests 2 03/26/19 17:21: Immature Granulocyte % (Auto) 0.3, Neutrophils (%) (Auto) 73.4H, Lymphocytes (%) (Auto) 14.6L, Monocytes (%) (Auto) 11.1H, Eosinophils (%) (Auto) 0.1, Basophils (%) (Auto) 0.5, Neutrophils # (Auto) 6.8, Lymphocytes # (Auto) 1.4L, Monocytes # (Auto) 1.0H, Eosinophils # (Auto) 0.0, Basophils # (Auto) 0.1, Nucleated Red Blood Cells % (auto) 0.0, Anion Gap 6L, Glomerular Filtration Rate > 60.0, Calcium Level 9.5, Total Bilirubin 0.7, Direct Bilirubin 0.3H, Aspartate Amino Transf (AST/SGOT) 20, Alanine Aminotransferase (ALT/SGPT) 14, Alkaline Phosphatase 66, Total Protein 8.1, Albumin 3.5, Albumin/Globulin Ratio 0.76L 03/27/19 04:51: Nucleated Red Blood Cells % (auto) 0.0, Anion Gap 3L, Glomerular Filtration Rate > 60.0, Calcium Level 9.1, Prothrombin Time 14.7H, Prothromb Time International Ratio 1.17 CBC/BMP Laboratory Tests 03/26/19 17:21 03/27/19 04:51 Attending Note Attending Note I have reviewed the documentation and assessed the patient independently. I have made necessary revisions as needed. I agree with the findings, assessment and plan stated above. - Patient was seen and examined at the bedside - Remains hemodynamically stable, afebrile and not in any respiratory distress - Lab work was reviewed did not reveal any leukocytosis - Imaging did reveal left-sided epiglottic mass - I have personally called and discussed the case with Dr. Aaron Rodriguez of ENT - Advised that he will be on consultation and will be doing a bedside laryngoscopy with possible biopsy today - Patient has not seen to have any signs of infection, his throat culture did become positive for strep - Patient has been continued with ceftriaxone CHRIS ROYAL PA-C Mar 27, 2019 13:12 CORNELL HERNANDEZ MD Mar 27, 2019 17:58
[2019-03-27] MEDS ORDERED: cefTRIAXone SOD 1 GM in D5W MINI-BAG PLUS 50 ML IV SCH (21:00)
[2019-03-27] MEDS: NICOTINE 14 MG/24 HR TRANSDERMAL TD SCH (21:24)
[2019-03-28] VITALS (7 sets, daily range): BP systolic 101–124; BP diastolic 55–87
[2019-03-28] MEDS: D5W/0.9% SODIUM CHLORIDE 1,000 ML IV SCH ×3 (01:45→21:35)
[2019-03-28 05:18] LABS: HEMATOCRIT 40.8 % (42.0-52.0); HEMOGLOBIN 13.7 g/dl (13.5-17.5); MEAN CORPUSCULAR HEMOGLOBIN 31.7 pg (27.0-33.0); MEAN CORPUSCULAR HGB CONC 33.6 g/dl (32.0-36.5); MEAN CORPUSCULAR VOLUME 94.4 fl (80.0-96.0); PLATELET COUNT, AUTOMATED 185 10^3/uL (150-450); RED BLOOD COUNT 4.32 10^6/uL (4.30-6.10); WHITE BLOOD COUNT 4.4 10^3/uL (4.0-10.0)
[2019-03-28 05:24] LABS: INR 1.18; PROTHROMBIN TIME 14.7 SECONDS (11.8-14.0)
[2019-03-28 05:47] LABS: BLOOD UREA NITROGEN 8 MG/DL (7-18); CALCIUM LEVEL 8.5 MG/DL (8.5-10.1); CARBON DIOXIDE LEVEL 30 MEQ/L (21-32); CHLORIDE LEVEL 108 MEQ/L (98-107); CREATININE FOR GFR 0.58 MG/DL (0.70-1.30); GLOMERULAR FILTRATION RATE > 60.0 (>56); GLUCOSE, FASTING 109 MG/DL (70-100); POTASSIUM SERUM 3.5 MEQ/L (3.5-5.1); SODIUM LEVEL 142 MEQ/L (136-145)
[2019-03-28] MEDS: BENZOCAINE 10% 9GM TUBE (ANBESOL) MT SCH ×3 (09:09→21:36)
[2019-03-28] MEDS: ALBUTEROL SULFATE 2.5 MG/0.5 ML INH NEB SOLN NEB PRN (09:20)
--- NOTE | 2019-03-28 14:45 | IPNPDOC ---
Text Note Date of Service The patient was seen on 03/28/19. NOTE Subjective Chief Complaint/HPI Mr. Hinds is a 59 year old male who presented to the ED with worsening difficulty swallowing solids, muffled voice, cough, fevers and weight loss. CT neck showed Left Supraglottic Mass. Pt was admitted to the ICU pending ENT consult. This morning he is sitting up in bed with his present. She describes a more indolent course of Sx onset. Pt has been having some issues with being able to eat since Summer 2018. They both attributed it to his dental problems. He has had a total of 6 teeth extracted 4 in the summer and 2 in February. He told me about his birthday dinner yesterday; however his reported this meal was at [employer] and she recalls him having problems choking/being unable to swallow his food, but again they assumed it was linked to his poor dental health. He did not join family for Thanksgiving dinner and they cannot recall why. She noted he had a fever and cough x 2 months ago for some time which resolved spontaneously. She noted approx 1 month prior that his stomach wasn't as rounded as his clothes didn't fit very well. Pt has what sounds like an SPN per CT done 2018. They were advised that the scan is repeated in 1 year due to the size of the lesion. Objective Physical Examination General Exam: Positive: Alert, Other (Cachexic) Eye Exam: Positive: Conjunctiva & lids normal; Negative: Sclera icteric ENT Exam: Positive: Atraumatic, Pharynx Normal; Negative: Mucous membr. moist/pink (mucus membranes are dry), Pharyngeal Edema Neck Exam: Positive: Supple, Other (L sided enlarged lymph node vs mass); Negative: thyromegaly Chest Exam: Positive: Good air movement, Wheezing Heart Exam: Positive: Rate Normal, Normal S1, Normal S2, Rubs; Negative: Gallops, Murmurs Telemetry: Positive: No significant arrhythmia Abdomen Exam: Positive: Normal bowel sounds, Soft; Negative: Tenderness Extremity Exam: Negative: Clubbing, Cyanosis, Edema Skin Exam: Positive: Nl turgor and temperature Neuro Exam: Positive: Cranial Nerves 3-12 NL; Negative: Normal Speech (muffled speech) Psych Exam: Positive: Mood NL, Oriented x 3 Assessment /Plan Assessment Mr. Hinds is a 59 year old male who presented to the ED with worsening difficulty swallowing solids, muffled voice, cough, fevers and weight loss. CT neck showed Left Supraglottic Mass. Pt was admitted to the ICU pending ENT consult. Pt has a PMHx which includes: COPD, Alcoholic Liver Cirrhosis, Periodic limb movement disorder, ?Iron overload 2/2 multiple transfusions, Alcoholism (in remission), current everyday smoker. IMAGING: CT neck " IMPRESSION: 1. Left supraglottic mass. There is thickening of the epiglottis asymmetric to the left. Although the time course of symptoms is not provided the appearance is more consistent with neoplasm rather than inflammatory disease. 2. Enlarged and irregularly enhancing level 2 left jugular lymph nodes highly suspicious for metastatic adenopathy. " Progressive dysphasia 2/2 left supraglottic mass, less likely 2/2 infectious etiology - Dr. Vicente - ENT now on consult. Further management as per ENT. Biopsy scheduled today - Pt declined sequentials; Lovenox on hold in anticipation of procedure per ENT. Start post-op. - Otherwise, continue current management: ICU with continuous pulse ox, NPO, IVF, Zosyn. GABS - per respiratory swab - Stop Rocephin; Given Pen. G 1.2m units IM due to superior pharyngeal clearance and pt inability to swallow solids COPD - Current cigarette smoker with 40 year smoking history - Continue albuterol prn, nicotine patch, smoking cessation eduction SPN per CT done 2018 - Advised to repeat scan in 1 year due to its size - Consider repeating the scan sooner based on the Bx findings. Protein Calorie Malnutrition - Currently NPO and reports he is hungry and thirsty - Progress to a liquid/soft diet post-procedure this afternoon as indicated Plan/VTE VTE Prophylaxis Ordered?: No (on hold following ENT and likely procedure. Start Lovenox post-procedure.) VS,Fishbone, I+O VS, Fishbone, I+O Laboratory Tests 03/28/19 05:01 Vital Signs Date Time Temp Pulse Resp B/P (MAP) Pulse Ox O2 Delivery O2 Flow Rate FiO2 03/28/19 12:00 98.6 68 18 111/65 (80) 98 Room Air I&O- Last 24 Hours up to 6 AM 03/28/19 06:00 Intake Total 1940 ml Output Total 675 ml Balance 1265 ml CHRIS ROAYL PA-C Mar 28, 2019 14:45
[2019-03-28] MEDS ORDERED: BICILLIN L-A 2,400,000 UNIT/4 ML SYRINGE (J0561-24)PENICILLIN G BENZATINE IM ONE (15:00)
[2019-03-28] MEDS: NICOTINE 14 MG/24 HR TRANSDERMAL TD SCH (21:35)
[2019-03-29] VITALS (11 sets, daily range): BP systolic 104–145; BP diastolic 55–86
[2019-03-29 05:31] LABS: INR 1.15; PROTHROMBIN TIME 14.4 SECONDS (11.8-14.0)
[2019-03-29] MEDS: D5W/0.9% SODIUM CHLORIDE 1,000 ML IV SCH ×2 (05:33→15:04)
[2019-03-29 07:49] LABS: BASO % 0.9 % (0.0-1.0); EOS # 0.1 10^3/uL (0.0-0.5); EOS % 1.1 % (0.0-3.0); HEMATOCRIT 41.4 % (42.0-52.0); LYMPH # 1.1 10^3/uL (1.5-5.0); LYMPH % 22.4 % (24.0-44.0); MEAN CORPUSCULAR HEMOGLOBIN 32.1 pg (27.0-33.0); MEAN CORPUSCULAR HGB CONC 33.8 g/dl (32.0-36.5); MONO # 0.6 10^3/uL (0.0-0.8); MONO % 13.7 % (0.0-5.0); NEUTROPHILS # 2.9 10^3/uL (1.5-8.5); NEUTROPHILS % 61.5 % (36.0-66.0); PLATELET COUNT, AUTOMATED 187 10^3/uL (150-450); RED BLOOD COUNT 4.36 10^6/uL (4.30-6.10); WHITE BLOOD COUNT 4.7 10^3/uL (4.0-10.0)
[2019-03-29 07:59] LABS: BLOOD UREA NITROGEN 4 MG/DL (7-18); CALCIUM LEVEL 7.9 MG/DL (8.5-10.1); CARBON DIOXIDE LEVEL 28 MEQ/L (21-32); CHLORIDE LEVEL 109 MEQ/L (98-107); CREATININE FOR GFR 0.57 MG/DL (0.70-1.30); GLOMERULAR FILTRATION RATE > 60.0 (>56); GLUCOSE, FASTING 104 MG/DL (70-100); MAGNESIUM LEVEL 1.8 MG/DL (1.8-2.4); POTASSIUM SERUM 3.7 MEQ/L (3.5-5.1); SODIUM LEVEL 142 MEQ/L (136-145)
[2019-03-29] MEDS ORDERED: ROCURONIUM BROMIDE 50 MG/5 ML VIAL As Ordered ONE (08:00)
[2019-03-29] MEDS ORDERED: propofoL 200 MG/20 ML VIAL As Ordered ONE (08:00)
[2019-03-29] MEDS ORDERED: LIDOCAINE 2% INJ 100 MG/5 ML SDV (FOR ANES.) As Ordered ONE (08:00)
[2019-03-29] MEDS ORDERED: MIDAZOLAM INJ 5 MG/ML VIAL (J2250) As Ordered ONE (08:00)
[2019-03-29] MEDS ORDERED: fentaNYL 250 MCG/5 ML INJECTION (J3010) As Ordered ONE (08:01)
[2019-03-29] MEDS: BENZOCAINE 10% 9GM TUBE (ANBESOL) MT SCH ×3 (08:58→19:54)
[2019-03-29] MEDS ORDERED: GLYCOPYRROLATE INJ 0.2 MG/ML 2 ML VIAL As Ordered ONE (09:24)
[2019-03-29] MEDS ORDERED: OXYMETAZOLINE NASAL SPRAY (AFRIN) As Ordered ONE (09:33)
[2019-03-29] MEDS ORDERED: LIDOCAINE W/EPINEPHRINE 1% 20ML VIAL As Ordered ONE (09:33)
[2019-03-29] MEDS ORDERED: METHYLENE BLUE 0.5% (5MG/ML) 10 ML AMP (PROVAYBLUE)(Q9968 PER 1MG) As Ordered ONE (09:34)
[2019-03-29] MEDS ORDERED: dexameTHASONE 4 MG/ML 1ML VIAL (J1100) As Ordered ONE (11:15)
[2019-03-29] MEDS ORDERED: ACETAMINOPHEN 1000MG 100ML IV BTL (OFIRMEV) (J0131 PER 10MG) As Ordered ONE (11:41)
[2019-03-29] MEDS ORDERED: SUGAMMADEX SODIUM 500 MG/5 ML VIAL (BRIDION) As Ordered ONE (11:43)
[2019-03-29] MEDS ORDERED: ONDANSETRON 4MG/2ML VIAL (J2405) As Ordered ONE (11:43)
[2019-03-29] MEDS ORDERED: ePHEDrine SULFATE 25 MG/5 ML(5MG/ML) SYRINGE As Ordered ONE (11:50)
[2019-03-29] MEDS ORDERED: PHENYLephrine HCL 500 MCG/5 ML (100MCG/ML) SYRINGE (J2370) As Ordered ONE (12:11)
[2019-03-29] MEDS ORDERED: fentaNYL 100 MCG/2 ML INJECTION (J3010) As Ordered ONE (14:02)
[2019-03-29] MEDS ORDERED: LR 1,000 ML IV SCH (14:15)
[2019-03-29] MEDS ORDERED: fentaNYL 100 MCG/2 ML INJECTION (J3010) IV PRN (14:15)
[2019-03-29] MEDS ORDERED: ONDANSETRON 4MG/2ML VIAL (J2405) IV PRN (14:15)
--- NOTE | 2019-03-29 17:23 | IPNPDOC ---
Text Note Date of Service The patient was seen on 03/29/19. NOTE Subjective Chief Complaint/HPI Mr. Hinds is a 59 year old male who presented to the ED with worsening difficulty swallowing solids, muffled voice, cough, fevers and weight loss. CT neck showed Left Supraglottic Mass. Pt was admitted to the ICU pending ENT consult. Pt seen in recovery this afternoon post-procedure. He has a trache; he denied any pain or discomfort at this time. Objective Physical Examination General Exam: Positive: Alert, Other (Cachexic) Eye Exam: Positive: Conjunctiva & lids normal; Negative: Sclera icteric ENT Exam: Positive: Trache in place Negative: Mucous membr. moist/pink (mucus membranes are dry) Chest Exam: Positive: Good air movement, Wheezing Heart Exam: Positive: Rate Normal, Normal S1, Normal S2, Rubs; Negative: Gallops, Murmurs Telemetry: Positive: No significant arrhythmia Abdomen Exam: Positive: Normal bowel sounds, Soft; Negative: Tenderness Extremity Exam: Negative: Clubbing, Cyanosis, Edema Skin Exam: Positive: Nl turgor and temperature Neuro Exam: Positive: Cranial Nerves 3-12 NL; Negative: Normal Speech Psych Exam: Positive: Mood NL Assessment /Plan Assessment Mr. Hinds is a 59 year old male who presented to the ED with worsening difficulty swallowing solids, muffled voice, cough, fevers and weight loss. CT neck showed Left Supraglottic Mass. Pt was admitted to the ICU pending ENT consult. Pt has a PMHx which includes: COPD, Alcoholic Liver Cirrhosis, Periodic limb movement disorder, ?Iron overload 2/2 multiple transfusions, Alcoholism (in remission), current everyday smoker. IMAGING: CT neck " IMPRESSION: 1. Left supraglottic mass. There is thickening of the epiglottis asymmetric to the left. Although the time course of symptoms is not provided the appearance is more consistent with neoplasm rather than inflammatory disease. 2. Enlarged and irregularly enhancing level 2 left jugular lymph nodes highly suspicious for metastatic adenopathy. " Progressive dysphasia 2/2 left supraglottic mass, less likely 2/2 infectious etiology - Dr. Vicente - ENT now on consult. Trache and biopsy completed today. Further management as per ENT. - Pt declined sequentials; Lovenox on hold in anticipation of procedure per ENT. Start post-op. - Otherwise, continue current management: ICU with continuous pulse ox, NPO, IVF. - Dr. Barnett will discuss PEG with general surgery GABS - per respiratory swab - Stop Rocephin; Given Pen. G 1.2m units IM due to superior pharyngeal clearance and pt inability to swallow solids COPD - Current cigarette smoker with 40 year smoking history - Continue albuterol prn, nicotine patch, smoking cessation eduction SPN per CT done 2018 - Advised to repeat scan in 1 year due to its size - Consider repeating the scan sooner based on the Bx findings. Protein Calorie Malnutrition - Currently NPO and reports he is hungry and thirsty - Progress to a liquid/soft diet post-procedure this afternoon as indicated Plan/VTE VTE Prophylaxis Ordered?: No (on hold following ENT and likely procedure. Start Lovenox post-procedure.) I, Gui Barnett, have independently examined this patient and performed my own physical exam, as well as reviewed the documentation and edited where necessary. I have discussed in detail with the nurse practitioner the findings and plan of treatment as documented by the nurse practitioner . I will continue to follow the patient during this hospital stay I discussed with Dr. Li the placement of PEG tube. Appreciate/agree with his recommendation VS,Fishbone, I+O VS, Fishbone, I+O Laboratory Tests 03/29/19 04:58 Vital Signs Date Time Temp Pulse Resp B/P (MAP) Pulse Ox O2 Delivery O2 Flow Rate FiO2 03/29/19 17:00 51 12 104/66 (79) 97 28 03/29/19 16:00 97.1 Trach Collar 03/29/19 14:20 5.0 I&O- Last 24 Hours up to 6 AM 03/29/19 05:59 Intake Total 1900 ml Output Total 780 ml Balance 1120 ml CHRIS ROYAL PA-C Mar 29, 2019 17:23 GUI BARNETT DO Mar 29, 2019 18:31
[2019-03-29 19:06] LABS: HEMATOCRIT 40.2 % (42.0-52.0); HEMOGLOBIN 13.5 g/dl (13.5-17.5); MEAN CORPUSCULAR HEMOGLOBIN 31.4 pg (27.0-33.0); MEAN CORPUSCULAR HGB CONC 33.6 g/dl (32.0-36.5); MEAN CORPUSCULAR VOLUME 93.5 fl (80.0-96.0); PLATELET COUNT, AUTOMATED 183 10^3/uL (150-450); WHITE BLOOD COUNT 8.3 10^3/uL (4.0-10.0)
[2019-03-29] MEDS: NICOTINE 14 MG/24 HR TRANSDERMAL TD SCH (19:54)
[2019-03-29] MEDS: KETOROLAC 30 MG/ML VIAL (J1885) IV PRN (19:55)
[2019-03-30] VITALS: BP 108/58
[2019-03-30] MEDS: D5W/0.9% SODIUM CHLORIDE 1,000 ML IV SCH ×3 (00:21→15:59)
[2019-03-30 00:48] LABS: HEMATOCRIT 37.1 % (42.0-52.0); HEMOGLOBIN 12.7 g/dl (13.5-17.5); MEAN CORPUSCULAR HEMOGLOBIN 32.3 pg (27.0-33.0); MEAN CORPUSCULAR HGB CONC 34.2 g/dl (32.0-36.5); MEAN CORPUSCULAR VOLUME 94.4 fl (80.0-96.0); PLATELET COUNT, AUTOMATED 180 10^3/uL (150-450); RED BLOOD COUNT 3.93 10^6/uL (4.30-6.10); WHITE BLOOD COUNT 8.6 10^3/uL (4.0-10.0)
[2019-03-30 04:00] VITALS: BP 111/64
[2019-03-30 06:31] LABS: HEMATOCRIT 39.5 % (42.0-52.0); HEMOGLOBIN 13.6 g/dl (13.5-17.5); MEAN CORPUSCULAR HEMOGLOBIN 32.2 pg (27.0-33.0); MEAN CORPUSCULAR HGB CONC 34.4 g/dl (32.0-36.5); MEAN CORPUSCULAR VOLUME 93.6 fl (80.0-96.0); PLATELET COUNT, AUTOMATED 207 10^3/uL (150-450); RED BLOOD COUNT 4.22 10^6/uL (4.30-6.10); WHITE BLOOD COUNT 10.5 10^3/uL (4.0-10.0)
[2019-03-30 06:46] LABS: INR 1.14; PROTHROMBIN TIME 14.3 SECONDS (11.8-14.0)
[2019-03-30 06:53] LABS: BLOOD UREA NITROGEN 7 MG/DL (7-18); CALCIUM LEVEL 8.8 MG/DL (8.5-10.1); CARBON DIOXIDE LEVEL 29 MEQ/L (21-32); CHLORIDE LEVEL 107 MEQ/L (98-107); CREATININE FOR GFR 0.65 MG/DL (0.70-1.30); GLOMERULAR FILTRATION RATE > 60.0 (>56); GLUCOSE, FASTING 99 MG/DL (70-100); MAGNESIUM LEVEL 1.6 MG/DL (1.8-2.4); POTASSIUM SERUM 3.7 MEQ/L (3.5-5.1); SODIUM LEVEL 140 MEQ/L (136-145)
[2019-03-30 08:11] VITALS: BP 122/63
[2019-03-30] MEDS ORDERED: MAG SULF 1GM/100ML (MAG RUN) 1 GM in IV 1 EA IV ONE (09:15)
[2019-03-30] MEDS: BENZOCAINE 10% 9GM TUBE (ANBESOL) MT SCH ×3 (10:35→20:46)
[2019-03-30] MEDS: KETOROLAC 30 MG/ML VIAL (J1885) IV PRN ×2 (10:35→19:32)
--- NOTE | 2019-03-30 11:13 | IPNPDOC ---
Text Note Date of Service The patient was seen on 03/30/19. NOTE Subjective: No any acute events overnight, patient received tracheostomy yeste rday, no complications. Patient denies fever, chills, nausea, vomiting, chest pain, palpitations, diarrhea or dysuria Objective: VITAL SIGNS: Please see below. GENERAL APPEARANCE: Cachectic male, not in apparent distress HEENT: Normocephalic, atraumatic. Mucous members moist and pink, tracheostomy in place CARDIOVASCULAR: Regular rate and rhythm. No murmurs, rubs or gallops. Radial pulses are intact. There is no lower extremity edema LUNGS: Mildly coarse lung sounds ABDOMEN: Abdomen is soft and nontender. MUSCULOSKELETAL: Range of motion is intact in all 4 extremities NEUROLOGICAL: Cranial nerves II-12 are grossly intact. Speech is not dysarthric Pt is a 59 year old male who presented to the ED with worsening difficulty swallowing solids, muffled voice, cough, fevers and weight loss. CT neck showed Left Supraglottic Mass. Pt was admitted to the ICU pending ENT consult. Pt has a PMHx which includes: COPD, Alcoholic Liver Cirrhosis, Periodic limb movement disorder, ?Iron overload 2/2 multiple transfusions, alcoholism (in remission), current everyday smoker. Progressive dysphasia 2/[address] Vicente - ENT now on consult. Trache and biopsy completed on 03/29/19 Appreciate/agree with surgical consult for PEG tube placement GABS - per respiratory swab - Patient received Pen. G 1.2m units IM due to superior pharyngeal clearance and pt inability to swallow solids COPD - Current cigarette smoker with 40 year smoking history - Continue albuterol prn, nicotine patch, smoking cessation eduction Pulmonary nodules per CT done 2018 -Follow up with chest CT in 6 months in the outpatient settings Protein Calorie Malnutrition Patient is candidate for PEG tube placement VS,Fishbone, I+O VS, Fishbone, I+O Laboratory Tests 03/29/19 18:55 03/30/19 00:32 03/30/19 06:19 Vital Signs Date Time Temp Pulse Resp B/P (MAP) Pulse Ox O2 Delivery O2 Flow Rate FiO2 03/30/19 08:00 28 03/30/19 04:00 97.9 51 14 111/64 (80) 98 Trach Collar 03/29/19 14:20 5.0 I&O- Last 24 Hours up to 6 AM 03/30/19 06:00 Intake Total 3800 ml Output Total 950 ml Balance 2850 ml JU BARNETT DO Mar 30, 2019 11:13
[2019-03-30] MEDS: HEPARIN SOD (PORCINE) 5000 UNITS/ML VIAL (J1644 PER 1000UNITS) SQ SCH ×2 (11:55→19:31)
[2019-03-30 12:26] LABS: HEMATOCRIT 38.9 % (42.0-52.0); HEMOGLOBIN 13.2 g/dl (13.5-17.5); MEAN CORPUSCULAR HGB CONC 33.9 g/dl (32.0-36.5); MEAN CORPUSCULAR VOLUME 94.4 fl (80.0-96.0); PLATELET COUNT, AUTOMATED 166 10^3/uL (150-450); RED BLOOD COUNT 4.12 10^6/uL (4.30-6.10); WHITE BLOOD COUNT 10.2 10^3/uL (4.0-10.0)
[2019-03-30] MEDS ORDERED: UNASYN 1.5 GM VIAL As Ordered ONE (13:29)
[2019-03-30] MEDS ORDERED: UNASYN 3 GM VIAL IV ONE (13:43)
[2019-03-30] MEDS ORDERED: LIDOCAINE 1% MDV 20ML VIAL SC ONE (13:45)
[2019-03-30] MEDS ORDERED: ONDANSETRON 4MG/2ML VIAL (J2405) As Ordered ONE (14:28)
[2019-03-30] MEDS ORDERED: MIDAZOLAM INJ 2 MG/2 ML VIAL (J2250) As Ordered ONE (14:28)
[2019-03-30] MEDS ORDERED: dexameTHASONE 4 MG/ML 1ML VIAL (J1100) As Ordered ONE (14:28)
[2019-03-30] MEDS ORDERED: fentaNYL 100 MCG/2 ML INJECTION (J3010) As Ordered ONE (14:28)
[2019-03-30] MEDS ORDERED: oxyCODONE 5MG TAB PO PRN (14:30)
[2019-03-30] MEDS ORDERED: LR 1,000 ML IV SCH (14:30)
[2019-03-30] MEDS ORDERED: ONDANSETRON 4MG/2ML VIAL (J2405) IV PRN (14:30)
[2019-03-30] MEDS ORDERED: fentaNYL 100 MCG/2 ML INJECTION (J3010) IV PRN (14:30)
[2019-03-30 14:54] VITALS: BP 117/69
[2019-03-30 18:24] LABS: HEMATOCRIT 39.6 % (42.0-52.0); HEMOGLOBIN 13.3 g/dl (13.5-17.5); MEAN CORPUSCULAR HGB CONC 33.6 g/dl (32.0-36.5); MEAN CORPUSCULAR VOLUME 95.4 fl (80.0-96.0); PLATELET COUNT, AUTOMATED 172 10^3/uL (150-450); RED BLOOD COUNT 4.15 10^6/uL (4.30-6.10); WHITE BLOOD COUNT 9.7 10^3/uL (4.0-10.0)
[2019-03-30] MEDS: NICOTINE 14 MG/24 HR TRANSDERMAL TD SCH (19:33)
[2019-03-30] MEDS: ALBUTEROL SULFATE 2.5 MG/0.5 ML INH NEB SOLN NEB PRN (19:41)
[2019-03-30 20:00] VITALS: BP 145/73
[2019-03-31] MEDS: D5W/0.9% SODIUM CHLORIDE 1,000 ML IV SCH ×3 (00:25→20:00)
[2019-03-31 00:30] LABS: HEMATOCRIT 37.1 % (42.0-52.0); HEMOGLOBIN 12.4 g/dl (13.5-17.5); MEAN CORPUSCULAR HEMOGLOBIN 31.8 pg (27.0-33.0); MEAN CORPUSCULAR HGB CONC 33.4 g/dl (32.0-36.5); MEAN CORPUSCULAR VOLUME 95.1 fl (80.0-96.0); PLATELET COUNT, AUTOMATED 162 10^3/uL (150-450); WHITE BLOOD COUNT 10.2 10^3/uL (4.0-10.0)
[2019-03-31 04:57] VITALS: BP 122/67
[2019-03-31 06:00] VITALS: BP 132/64
[2019-03-31 06:14] LABS: HEMATOCRIT 34.8 % (42.0-52.0); MEAN CORPUSCULAR HEMOGLOBIN 32.5 pg (27.0-33.0); MEAN CORPUSCULAR HGB CONC 34.5 g/dl (32.0-36.5); MEAN CORPUSCULAR VOLUME 94.3 fl (80.0-96.0); PLATELET COUNT, AUTOMATED 161 10^3/uL (150-450); RED BLOOD COUNT 3.69 10^6/uL (4.30-6.10); WHITE BLOOD COUNT 7.9 10^3/uL (4.0-10.0)
[2019-03-31 06:25] LABS: BLOOD UREA NITROGEN 9 MG/DL (7-18); CARBON DIOXIDE LEVEL 29 MEQ/L (21-32); CHLORIDE LEVEL 111 MEQ/L (98-107); CREATININE FOR GFR 0.54 MG/DL (0.70-1.30); GLOMERULAR FILTRATION RATE > 60.0 (>56); GLUCOSE, FASTING 76 MG/DL (70-100); MAGNESIUM LEVEL 1.8 MG/DL (1.8-2.4); POTASSIUM SERUM 3.4 MEQ/L (3.5-5.1); SODIUM LEVEL 144 MEQ/L (136-145)
[2019-03-31 06:26] LABS: INR 1.22; PROTHROMBIN TIME 15.1 SECONDS (11.8-14.0)
[2019-03-31] MEDS: HEPARIN SOD (PORCINE) 5000 UNITS/ML VIAL (J1644 PER 1000UNITS) SQ SCH ×2 (08:51→21:34)
[2019-03-31] MEDS: BENZOCAINE 10% 9GM TUBE (ANBESOL) MT SCH ×5 (08:51→21:33)
--- NOTE | 2019-03-31 09:30 | ROOPDOC ---
[facility] Report Of Operation Report of Operation DATE OF PROCEDURE: 03/30/19 PREPROCEDURE DIAGNOSES: base of tongue/mouth SCC, need for enteral access. POSTPROCEDURE DIAGNOSES: same. PROCEDURE: Upper Gastrointestinal Endoscopy and placement of 20 F gastrostomy feeding tube. SURGEON: Nish Li MD PIG BREEDER: ANESTHESIA: monitored anesthesia care. ESTIMATED BLOOD LOSS: Approximately 10 mL. COMPLICATIONS: none. PROCEDURE NOTE: 20 F gastrostomy tube placed at distal stomach with visual confirmation of endoluminal placement, tube at 2 cms at skin level. . DESCRIPTION OF PROCEDURE: Patient was given a dose of Unasyn 3 g IV for wound prophylaxis. He was brought to the operating room and remained on the stretcher. He was connected to the anesthesia machine through a tracheostomy. He was paced slightly on the left lateral decubitus position. The endoscope was inserted through his mouth and guided under direct vision through the upper esophagus. Presence of a fungating mass at the epiglottis noted. This is slightly friable with no active bleeding is noted. Finally able to manipulate the scope around this and entered the esophagus. No evidence of active esophagitis. The stomach was visualized and no active bleeding or gastritis is noted. A suitable area for placement of the gastrostomy tube was located screw direct transillumination this was at the distal body, proximal antrum us for some reason the very rigid abdominal wall. Bounce test was performed. The snare was threaded the scope and positioned where the wires concomitant through. I handed the scope to my orthopaedic physician assistant and went to the patient's abdominal area for placement of the needle and guidewire. This was prepped and draped in usual sterile fashion. A changed to sterile gloves. With the stomach fully inflated a glazier stained glass needle was threaded through the abdominal wall and through the stomach. I threaded the guidewire back in and the guidewire was captured with the snare. I returned with the endoscope and removed the endoscope and pulled the wire through the mouth. Under Seldinger technique a 20 Lao push gastrostomy tube was threaded through the guidewire and retrieved outside of the abdomen. We carefully pulled this through clindamycin topical fact that he has a friable mass in his floor of the mouth. This was pulled up to a level of 2 cm at the skin level. The tube was trimmed, the external bumpers placed. I went back through to the scope to visualize no bleeding at the mouth and as well as confirm the intraluminal placement of the internal bumper of the gastrostomy tube. This was at 2 cm level at the skin. Patient tolerated procedure well. The scope was withdrawn. He was promptly awakened and brought to recovery room in stable condition. NISH LI MD Mar 31, 2019 09:30
[2019-03-31 12:37] LABS: HEMATOCRIT 36.4 % (42.0-52.0); HEMOGLOBIN 12.1 g/dl (13.5-17.5); MEAN CORPUSCULAR HEMOGLOBIN 31.9 pg (27.0-33.0); MEAN CORPUSCULAR HGB CONC 33.2 g/dl (32.0-36.5); PLATELET COUNT, AUTOMATED 159 10^3/uL (150-450); RED BLOOD COUNT 3.79 10^6/uL (4.30-6.10); WHITE BLOOD COUNT 6.9 10^3/uL (4.0-10.0)
[2019-03-31 14:00] VITALS: BP 119/64
--- NOTE | 2019-03-31 14:03 | IPNPDOC ---
Text Note Date of Service The patient was seen on 03/31/19. NOTE Subjective: No any acute events overnight, patient received PEG, no complicati ons. Patient denies fever, chills, nausea, vomiting, chest pain, palpitations, diarrhea or dysuria Objective: VITAL SIGNS: Please see below. GENERAL APPEARANCE: Cachectic male, not in apparent distress HEENT: Normocephalic, atraumatic. Mucous members moist and pink, tracheostomy in place CARDIOVASCULAR: Regular rate and rhythm. No murmurs, rubs or gallops. Radial pulses are intact. There is no lower extremity edema LUNGS: Mildly coarse lung sounds ABDOMEN: Abdomen is soft and nontender. MUSCULOSKELETAL: Range of motion is intact in all 4 extremities NEUROLOGICAL: Cranial nerves II-12 are grossly intact. Speech is not dysarthric Pt is a 59 year old male who presented to the ED with worsening difficulty swallowing solids, muffled voice, cough, fevers and weight loss. CT neck showed Left Supraglottic Mass. Trache and biopsy completed on 03/29/19. On 03/30/19 patient received PEG tube. Tube feeding started on 03/31/19. Await pathology report Plan: Follow-up with oncology and ENT in the outpatient settings Progressive dysphasia 2/ left supraglottic mass Dr. Vicente - ENT now on consult. Trache and biopsy completed on 03/29/[address] tube [address] by Dr. 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 G 1.2m units IM COPD - Current cigarette smoker with 40 year smoking history - Continue albuterol prn, nicotine patch, smoking cessation eduction Pulmonary nodules per CT done 2018 -Follow up with chest CT in 6 months in the outpatient settings Protein Calorie Malnutrition Patient is candidate for PEG tube placement VS,Fishbone, I+O VS, Fishbone, I+O Laboratory Tests 03/30/19 18:14 03/31/19 00:24 03/31/19 05:55 03/31/19 12:17 Vital Signs Date Time Temp Pulse Resp B/P (MAP) Pulse Ox O2 Delivery O2 Flow Rate FiO2 03/31/19 10:00 5.0 28 03/31/19 06:00 97.9 60 18 132/64 (86) 100 Trach Collar I&O- Last 24 Hours up to 6 AM 03/31/19 06:00 Intake Total 2400 ml Output Total 750 ml Balance 1650 ml JU BARNETT DO Mar 31, 2019 14:03
[2019-03-31] MEDS: NICOTINE 14 MG/24 HR TRANSDERMAL TD SCH (21:35)
[2019-03-31 22:00] VITALS: BP 126/65
[2019-04-01 06:00] VITALS: BP 129/79
[2019-04-01 06:14] LABS: INR 1.16; PROTHROMBIN TIME 14.5 SECONDS (11.8-14.0)
[2019-04-01 06:25] LABS: BLOOD UREA NITROGEN 8 MG/DL (7-18); CARBON DIOXIDE LEVEL 30 MEQ/L (21-32); CHLORIDE LEVEL 110 MEQ/L (98-107); CREATININE FOR GFR 0.49 MG/DL (0.70-1.30); GLOMERULAR FILTRATION RATE > 60.0 (>56); GLUCOSE, FASTING 90 MG/DL (70-100); MAGNESIUM LEVEL 1.8 MG/DL (1.8-2.4); POTASSIUM SERUM 3.3 MEQ/L (3.5-5.1); SODIUM LEVEL 144 MEQ/L (136-145)
[2019-04-01] MEDS: BENZOCAINE 10% 9GM TUBE (ANBESOL) MT SCH (08:17)
[2019-04-01] MEDS ORDERED: POTASSIUM CHLORIDE 10% LIQ 20 MEQ/15 ML UDC PEG ONE (09:15)
[2019-04-01] MEDS: HEPARIN SOD (PORCINE) 5000 UNITS/ML VIAL (J1644 PER 1000UNITS) SQ SCH (09:31)
--- NOTE | 2019-04-01 09:54 | IPNPDOC ---
Text Note Date of Service The patient was seen on 04/01/19. NOTE Patient seen and examined. They placed a gastrostomy feeding tube via endoscopy in severity. We tried bolus feedings yesterday which she tolerated. Denies any severe abdominal discomfort and nausea or vomiting. Patient sitting up right on his bed. Looks comfortable. Mildly cachectic in appearance. He has a tracheostomy in place. He has a flat abdomen. PEG tube located at the epigastric region. No noticeable bleeding. Nontender on palpation Impression and plan Postop day 2 percutaneous endoscopic gastrostomy tube placement He is tolerating tube feedings. I'll leave it up to the primary team to determine adequate nutrition needs. He does not need a regular follow-up unless he has problems with his gastrostomy tube are at some point if the tube needs changing or removal. Thank you for the consult. Noe ESTEBAN, I+O Noe ESTEBAN, I+O Laboratory Tests 03/31/19 12:17 04/01/19 05:07 Vital Signs Date Time Temp Pulse Resp B/P (MAP) Pulse Ox O2 Delivery O2 Flow Rate FiO2 04/01/19 09:01 5.0 28 04/01/19 06:00 99.3 78 18 129/79 (96) 94 Trach Collar I&O- Last 24 Hours up to 6 AM 04/01/19 05:59 Intake Total 1340 ml Output Total 550 ml Balance 790 ml BLANQUITA HARDWICK MD Apr 01, 2019 09:54
--- NOTE | 2019-04-01 11:17 | IPNPDOC ---
Text Note Date of Service The patient was seen on 04/01/19. NOTE ADDENDUM Patient was able to receive his dietary consult and training, trache training and his supplies ordered to facilitate discharge home on 04/01/19. Admitting Diagnosis: Progressive dysphasia 2/2 left supraglottic mass COPD 2/2 tobacco abuse Discharge Diagnosis: Left supraglottic mass Progressive dysphasia Hypokalemia GABS COPD SPN Protein Calorie Malnutrition Subjective Chief Complaint/HPI Mr. Hinds is a 59 year old male who presented to the ED with worsening difficulty swallowing solids, muffled voice, cough, fevers and weight loss. CT neck showed Left Supraglottic Mass. Pt was admitted to the ICU pending ENT consult. Pt is seen sitting up in bed this morning. He shook his head denying any problems. He is 3d s/p trache - some thin, clear mucus d/c no further issues at this time. He is 2d s/p PEG tube placement, tolerating his PEG tube feedings - no abdominal discomfort. Pt wrote a note requesting to be d/c today. He feels physically to handle his trache and PEG tube with training. Discussed with nursing - please be sure his is present for any training as pt is forgetful. Objective Physical Examination General Exam: Positive: Alert, Other (Cachexic) Eye Exam: Positive: Conjunctiva & lids normal; Negative: Sclera icteric ENT Exam: Positive: Trache in place Negative: Mucous membr. moist/pink (mucus membranes are dry) Chest Exam: Positive: Good air movement, Wheezing Heart Exam: Positive: Rate Normal, Normal S1, Normal S2, Rubs; Negative: Gallops, Murmurs Telemetry: Positive: No significant arrhythmia Abdomen Exam: Positive: PEG in place, Soft; Negative: Tenderness Extremity Exam: Negative: Clubbing, Cyanosis, Edema Skin Exam: Positive: Nl turgor and temperature Neuro Exam: Positive: Cranial Nerves 3-12 NL; Negative: Normal Speech Psych Exam: Positive: Mood NL Assessment /Plan Mr. Hinds is a 59 year old male who presented to the ED with worsening difficulty swallowing solids, muffled voice, cough, fevers and weight loss. CT neck showed Left Supraglottic Mass. Pt was admitted to the ICU pending ENT consult. Pt has a PMHx which includes: COPD, Alcoholic Liver Cirrhosis, Periodic limb movement disorder, ?Iron overload 2/2 multiple transfusions, Alcoholism (in remission), current everyday smoker. IMAGING: CT neck " IMPRESSION: 1. Left supraglottic mass. There is thickening of the epiglottis asymmetric to the left. Although the time course of symptoms is not provided the appearance is more consistent with neoplasm rather than inflammatory disease. 2. Enlarged and irregularly enhancing level 2 left jugular lymph nodes highly suspicious for metastatic adenopathy. " Progressive dysphasia 2/2 left supraglottic mass, with tracheostomy and PEG tube - Dr. Vicente - ENT now on consult. Trache and biopsy completed 03/29/19. Awaiting pathology. - Further management as per ENT and oncology outpatient - Trache. care training to be completed today per resp. with eventual d.c - PEG per Dr. Li - Dietary consult in place. To be completed prior to d.c - No need for regular oupt f/u unless issues arise Hypokalemia - replacement per PEG - Mg WNL - re-check BMP at 3pm GABS - per respiratory swab - treated with Pen. G 1.2m units IM COPD - Current cigarette smoker with 40 year smoking history - Continue albuterol prn, nicotine patch, smoking cessation eduction SPN per CT done 2018 - Advised to repeat scan in 1 year due to its size Protein Calorie Malnutrition - Currently NPO with tracheostomy and PEG tube as noted above DVT prophy: Declined TEDs and sequentials VS,Fishbone, I+O VS, Fishbone, I+O Laboratory Tests 03/31/19 12:17 04/01/19 05:07 Vital Signs Date Time Temp Pulse Resp B/P (MAP) Pulse Ox O2 Delivery O2 Flow Rate FiO2 04/01/19 09:01 5.0 28 04/01/19 06:00 99.3 78 18 129/79 (96) 94 Trach Collar I&O- Last 24 Hours up to 6 AM 04/01/19 06:00 Intake Total 2480 ml Output Total 550 ml Balance 1930 ml CHRIS ROYAL PA-C Apr 01, 2019 11:17
[2019-04-01] MEDS ORDERED: NICO14PA TD (13:57)
[2019-04-01] MEDS ORDERED: PROTPAK PO (13:57)
[2019-04-01 14:46] VITALS: BP 132/74
[2019-04-01 15:35] LABS: BLOOD UREA NITROGEN 7 MG/DL (7-18); CALCIUM LEVEL 8.3 MG/DL (8.5-10.1); CARBON DIOXIDE LEVEL 31 MEQ/L (21-32); CHLORIDE LEVEL 106 MEQ/L (98-107); CREATININE FOR GFR 0.45 MG/DL (0.70-1.30); GLOMERULAR FILTRATION RATE > 60.0 (>56); GLUCOSE, FASTING 114 MG/DL (70-100); POTASSIUM SERUM 3.5 MEQ/L (3.5-5.1); SODIUM LEVEL 141 MEQ/L (136-145)
--- NOTE | 2019-04-03 15:40 | RO ---
DATE OF PROCEDURE: 03/29/2019 PREOPERATIVE DIAGNOSES: Dysphonia, dysphagia, and a mass base of the tongue. POSTOPERATIVE DIAGNOSES: Dysphonia, dysphagia, and a mass base of the tongue. PROCEDURE PERFORMED: 1. Tracheostomy. 2. Direct suspension microlaryngoscopy with biopsy of the base of the tongue lesion. SURGEON: Aaron Rapp MD CUT IN WORKER: ANESTHESIA: General. CLINICAL PREAMBLE: This 59-year-old man presented to the emergency department (ED) with history of progressive worsening of dysphagia, coughing, and dysphonia. CT scan revealed evidence of mass lesion in the base of tongue region more prominent on the left side extending down into the supraglottic region. Flexible laryngoscopy revealed a mass lesion occupying the base of the tongue impinging on the airway and extending down to the left supraglottic area. Management options, including surgery listed above, have been discussed. The patient understood and consented to procedure. OPERATING ROOM (OR) NARRATION: Patient was identified in preoperative holding and brought to the operating room in stable condition. In supine position on the operating table, patient received awake intubation by anesthesia team successfully. Both vocal cords were visualized during the intubation. They were both mobile. Upon successful intubation, the patient was prepped and draped in the usual fashion for the procedure. The anterior neck was exposed. A horizontal incision was fashioned in the level of the second and third trachea ring. Incision was made through the subcutaneous tissue and platysma and exposed the strap muscles. The strap muscles were retracted laterally to expose the thyroid isthmus. The isthmus was then divided and ligated. The second and third tracheal ring were then visualized and entered. The endotracheal tube was then carefully withdrawn to the superior aspect of the flap. A #6 cuffed fenestrated tracheostomy tube was then successfully introduced into the tracheal lumen under direct visualization. Ventilatory circuit was connected to the tracheostomy tube. Good CO2 return was obtained. Good breath sounds were also obtained bilaterally. The Duke flap was then secured anteriorly to the skin with #3-0 Vicryl suture. The tracheostomy flange were sutured at each corner of the tracheostomy set. The trache-tie was then applied. At this time, patient was reprepped and draped for the direct suspension microlaryngoscopy with biopsy. Bimanual palpation of the oral cavity and the oropharynx revealed a firm indurated mass at the base of the tongue extending between left and right side of the basal tongue. At this time, the Dedo-Selin laryngoscope was introduced into the oral cavity. No mucosal lesion was seen of the buccal mucosa floor of the mouth posterior pharyngeal wall. A large mass at the base of the tongue involving predominantly the left side with extension across the midline to the right side as well. The anterior commissure scope was then used in an attempt to fill out the delineated extent of the tumor. The mass was found to be extending down into the left supraglottic area involving the right aryepiglottic region. Biopsies were then obtained from both the left and right side of the basal tongue. Hemostasis was achieved. At the end of the procedure, sponge and instrument counts were correct. No complication was noted. Estimated blood loss less than 10 mL. General anesthesia was reversed and the patient was awakened and taken to the recovery room in stable condition. Edited by LUPE 04/04/2019 at 0839 MTDD
== END 2019-04-01 16:13 | disposition home or self-care (01) | DRG 12 ==
LOC: M ED 16:28 → M ED INP 19:41 → ENRESERV 20:15 → M ICU 21:43 → M MSPAV 03-31 05:17
PROVIDERS: ADMIT Internal Medicine; ATTEND Internal Medicine Nephrology
PROC: 0B110F4 Bypass Trachea to Cutaneous with Tracheostomy Device, Open Approach (ICD-10-PCS; principal; 2019-03-29 10:00)
PROC: 0CBM8ZX Excision of Pharynx, Via Natural or Artificial Opening Endoscopic, Diagnostic (ICD-10-PCS; 2019-03-29 10:00)
PROC: 0DH68UZ Insertion of Feeding Device into Stomach, Via Natural or Artificial Opening Endoscopic (ICD-10-PCS; 2019-03-30)
DX: C01 Malignant neoplasm of base of tongue (principal); E46 Unspecified protein-calorie malnutrition; Z68.1 Body mass index [BMI] 19.9 or less, adult; F17.210 Nicotine dependence, cigarettes, uncomplicated; J44.9 Chronic obstructive pulmonary disease, unspecified; R91.8 Other nonspecific abnormal finding of lung field; G47.61 Periodic limb movement disorder; K70.30 Alcoholic cirrhosis of liver without ascites; F10.21 Alcohol dependence, in remission; Z98.41 Cataract extraction status, right eye; Z79.899 Other long term (current) drug therapy

== ENCOUNTER → 2019-04-09 | Outpatient (CLI) | payer OTHER ==
[~2019-04-09] MED LIST changes: +NICO14PA TD; +ORAJGEL3 MT; +PROTPAK PO; +VENTAER PO
--- NOTE | 2019-04-09 20:20 | REP ---
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 Whole-body scanning is performed from skull base to the upper thighs. Neck and supraclavicular areas: The there is a tracheostomy. Above the tracheostomy at the level of the hyoid and base of the tongue, there is a large hypermetabolic focus with a maximal standard uptake value of 12.3. There are confluent hypermetabolic foci in enlarged left jugular nodes with a maximal standard uptake value of 9.2. There is hypermetabolic uptake in a normal size right jugular node with a maximal standard uptake value of 5.7. There is hypermetabolic uptake along the tract of the tracheostomy. Chest: There are no hypermetabolic foci. Abdomen, pelvis and upper thighs: There is a tiny hypermetabolic focus in the wall of the sigmoid colon measuring 7 mm with a maximal standard uptake value of 5.1. t ts could represent a colonic polyp. No other hypermetabolic foci are identified in the abdomen, pelvis or upper thighs. Impression: There is a large hypermetabolic focus in the neck at the level of the hyoid bone and base of the tongue. There is hypermetabolic uptake along the tract of the tracheostomy. There is hypermetabolic uptake in cervical lymph nodes, confluent enlarged nodes on the left and a single normal-sized node on the right. There is a small 7 mm hypermetabolic focus in the wall of the sigmoid colon in the pelvis, possibly a colonic polyp. There are no other hypermetabolic foci. The study is performed with 8.60 mCi of F 18 FDG. Electronically Signed by Alex Tello MD 04/09/2019 08:11 P
== END ==
LOC: M PLARAD 15:00
PROVIDERS: ATTEND Otolaryngology
DX: C01 Malignant neoplasm of base of tongue (principal)

== ENCOUNTER → 2019-04-10 | Outpatient (REF) | payer OTHER ==
[~2019-04-10] MED LIST changes: +AMOX500C; +LANS30TA9 GT
== END ==
LOC: M LAB REF 13:20
PROVIDERS: ATTEND Registered Nurse
DX: R05 Cough (principal)

== ENCOUNTER → 2019-04-18 | Outpatient (CLI) | payer OTHER ==
--- NOTE | 2019-04-22 11:14 | RADONC ---
RADIATION ONCOLOGY CONSULTATION NOTE DATE: 04/18/2019 CHART NUMBER: [id number] DIAGNOSIS: Base of tongue cancer. STAGE: GERALDINE, T4a, N2c, M0, p16 negative. ECOG PERFORMANCE STATUS: 1. CONSULTATION NOTE: Mr. 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 HISTORY OF PRESENT ILLNESS: The patient reports that he was in his usual state of health until approximately 2 months ago when he began developing difficulty swallowing. He reports that he has lost approximately 40-45 pounds over those past 2 months. The patient presented to [facility] for evaluation on March 26, [address] scan was done of the neck which revealed a large supraglottic mass with thickening of the epiglottis asymmetric to the left. There were enlarged and irregular lymph nodes at the level to jugular lymph node chain area suspicious for metastatic adenopathy. On 03/29/2019 the patient underwent a right base of tongue biopsy and a left base of tongue biopsy. Pathology of the right base of tongue revealed a poorly differentiated malignant tumor predominantly with squamous features both focally there were areas suggesting poorly differentiated adenosquamous carcinoma. The left base of tongue biopsy revealed a poorly differentiated squamous cell carcinoma. On 04/09/2019 a PET/CT scan was done and showed a large hypermetabolic focus in the neck at the level of the hyoid bone and the base of tongue. The SUV value is 12.3. There was also hypermetabolic uptake along the track of the tracheostomy. In addition, there was hypermetabolic uptake in the cervical nodes with the confluent area of enlarged nodes in the left and a single normal-size node on the right which was also hypermetabolic with an SUV value of 5.7. As noted on the PET scan the patient had a tracheostomy placed. He has also had a feeding tube placed. Two days ago, on Monday, the patient had 19 of his remaining teeth resected. He is now presenting for discussion of external beam radiation therapy. PAST MEDICAL HISTORY: The patient's past medical history is positive for asthma. He has a history of cirrhosis of the liver and GERD. He has history of cataracts as well. ALLERGIES: The patient has no known drug allergies. SOCIAL HISTORY: The patient has a 40+ pack-year smoking history having smoked more than a pack of cigarettes per day for 40 years. In addition, the patient has a long drinking history, but quit drinking alcohol in 2017. FAMILY HISTORY: The patient's family history is unknown. REVIEW OF SYSTEMS: The patient's review of systems is positive for a 40-45 pound weight loss secondary to difficulty swallowing. He is unable to chew as he has no teeth at this time as well. He is weak. He is using his feeding tube for eating. His weight now is 125 pounds. His review of systems is otherwise noncontributory. He denies nausea, vomiting, fevers, chills, night sweats, diplopia, headaches, anxiety or depression, anorexia, weight loss, visual disturbances, chest pain, urinary or bowel difficulties, bone pain, or neurological problems. PHYSICAL EXAMINATION: The patient is a cachectic, chronically ill-appearing white male who as mentioned above weighs 125 pounds. He has a tracheostomy tube in place. HEENT: Exam is normocephalic, atraumatic. Extraocular movements are intact. Examination of the patient's oral cavity reveals him to be edentulous. There are sutures in place from his recent multiple tooth resection. I appreciate no nodularity in the oral cavity itself. There is clearly a larger base of tongue lesion present but I did not undertake fiberoptic laryngoscopic evaluation. There is some fullness and adenopathy palpable in the left neck. The right neck is free of masses or palpable lymphadenopathy. There is no supraclavicular, infraclavicular or axillary lymphadenopathy present. His tracheostomy site appears to be free of infection. His lungs are clear to auscultation and percussion. His heart has regular rate and rhythm. His abdomen is benign with no hepatosplenomegaly, masses or tenderness. ASSESSMENT: I had a very lengthy discussion with this patient and the patient and his are hoping to begin treatment immediately. Unfortunately I explained to the patient that he had just had 19 teeth extracted the day before yesterday. In light of this we cannot initiate radiation immediately. I described to them the need for healing and that radiation could not begin for at least another 2-3 weeks. I explained the risks of radio osteonecrosis if we begin sooner than that. In light of this I did discuss this case at length with his medical oncologist, Dr. Cueva. We discussed the possibility of inpatient induction chemotherapy to be delivered initially followed by concurrent chemoradiation therapy. I think this is the best option for this patient. Dr. Cueva and myself spoke with the director of distribution, Tiffany Simons, to ask for assistance in arranging inpatient induction systemic therapy. In light of this the patient should be able to begin treatment next week. Because he will be receiving systemic therapy first I am handing office care at this time to his medical oncologist, Dr. Cueva. Once he is closer to initiation of radiation. He can be referred back to us and treatment planning can begin. I did discuss in detail with the patient the potential benefits as well as possible acute and chronic sequelae of external beam radiation therapy. We did discussed the logistics of treatment planning, simulation and subsequent fractionated daily radiation treatments. We did go into detail with regards to the risks for osteonecrosis as well as xerostomia and other issues. The patient does have a feeding tube present and therefore he will continue to use this. I did discuss and review the patient's PET scan with him. There is hypermetabolic uptake around the stoma site. I further discussed this with his surgeon, Dr. Rapp, and reviewed it with our radiologist, Dr. Tremayne Alvarez. This may be inflammation as the PET scan was taken to us 2 weeks post surgery, however for the sake of thoroughness we will include this in our treatment field in case there is been any cancerous infiltration in that region as well. Once again in summary, the patient will begin with induction chemo with Dr. Cueva as an inpatient. He will then come back to us for initiation of treatment planning with concomitant chemotherapy. Thank you for allowing us to participate in the care of this very pleasant gentleman. If I could be of any further assistance please free to contact me anytime. cc: MD Trae Ramírez MD
== END ==
LOC: M ONCR 08:56
PROVIDERS: ATTEND Radiology Radiation Oncology
DX: C02.9 Malignant neoplasm of tongue, unspecified (principal)

== ENCOUNTER → 2019-04-19 | Outpatient (CLI) | payer OTHER ==
[~2019-04-19] MED LIST changes: +LIDOCAINE 1% MDV 20ML VIAL As Ordered ONE
[2019-04-19 16:00] VITALS: BP 112/59
--- NOTE | 2019-04-19 16:39 | REP ---
PICC line insertion under ultrasound guidance. The procedure was performed by ODIN Henderson, under the direct supervision of Dr. Norwood. The risks and benefits of the procedure were explained to the patient and informed consent was obtained both verbally and written. Directly prior to the start of the procedure, a formal timeout was completed in the procedure room. The right medial brachial vein was localized using ultrasound guidance. The skin was prepped and draped in the sterile fashion. 1 ml 1% lidocaine 10 mg/ml was used as a local anesthetic. Using ultrasound guidance the right medial brachial vein was cannulated and a 0.018 guidewire was inserted and advanced to the SVC using fluoroscopic guidance. The needle was removed and a 5.5 Singaporean dilator and peel-away sheath was inserted over the guidewire. A 5.5 Singaporean dual lumen catheter was cut to the length of 40 cm. The dilator was removed and the catheter was inserted over the guide wire with the tip ending in the SVC. The peel-away sheath was removed and the catheter was flushed with heparinized saline as per hospital protocol. The catheter was affixed to the skin and a sterile dressing was applied. The patient tolerated the procedure well and there were no immediate complications. 0.1 minutes of fluoroscopy time was utilized for this procedure. Some fluoroscopic images are performed with last image hold technology. These images require no additional radiation. Reviewed by ODIN Gould 04/19/2019 04:18 P Electronically Signed by Alex Norwood MD 04/19/2019 04:31 P
== END ==
LOC: M IRPRO 14:07
PROVIDERS: ATTEND Internal Medicine Hematology
DX: C02.9 Malignant neoplasm of tongue, unspecified (principal)
CPT/HCPCS: 36573; J1642; J1644

== ENCOUNTER 2019-05-01 20:50 | Inpatient (IN) | payer OTHER ==
[~2019-05-01] VITALS: Ht 180.3 cm; Wt 58.1 kg
[~2019-05-01 20:50] MED LIST changes: -LIDOCAINE 1% MDV 20ML VIAL As Ordered ONE
[2019-05-01] MEDS: DOCUSATE SODIUM 100 MG CAP PO SCH (21:00)
[2019-05-01] MEDS ORDERED: ACET160L16 PO (21:16)
[2019-05-01] MEDS ORDERED: ACET-683 PO (21:16)
[2019-05-01] MEDS ORDERED: BD P0.9I2 (21:16)
[2019-05-01] MEDS ORDERED: HEPA100I9 (21:16)
[2019-05-01 21:56] LABS: BASO % 1.2 % (0.0-1.0); HEMATOCRIT 29.6 % (42.0-52.0); HEMOGLOBIN 10.6 g/dl (13.5-17.5); LYMPH # 0.5 10^3/uL (1.5-5.0); MEAN CORPUSCULAR HEMOGLOBIN 31.5 pg (27.0-33.0); MEAN CORPUSCULAR HGB CONC 35.8 g/dl (32.0-36.5); MEAN CORPUSCULAR VOLUME 88.1 fl (80.0-96.0); MONO # 0.3 10^3/uL (0.0-0.8); MONO % 32.9 % (0.0-5.0); NEUTROPHILS % 4.9 % (36.0-66.0); PLATELET COUNT, AUTOMATED 115 10^3/uL (150-450); RED BLOOD COUNT 3.36 10^6/uL (4.30-6.10)
[2019-05-01 21:58] LABS: WHITE BLOOD COUNT 0.8 10^3/uL (4.0-10.0)
[2019-05-01 22:23] LABS: ALT/SGPT 26 U/L (12-78); BILIRUBIN,TOTAL 0.7 MG/DL (0.2-1.0); BLOOD UREA NITROGEN 29 MG/DL (7-18); CALCIUM LEVEL 8.2 MG/DL (8.5-10.1); CARBON DIOXIDE LEVEL 29 MEQ/L (21-32); CHLORIDE LEVEL 100 MEQ/L (98-107); CREATININE FOR GFR 1.07 MG/DL (0.70-1.30); GLOMERULAR FILTRATION RATE > 60.0 (>56); GLUCOSE, FASTING 142 MG/DL (70-100); POTASSIUM SERUM 3.6 MEQ/L (3.5-5.1); SODIUM LEVEL 134 MEQ/L (136-145); TOTAL PROTEIN 7.3 GM/DL (6.4-8.2)
[2019-05-01 22:27] LABS: INFLUENZA A AMPLIFICATION NEGATIVE (NEGATIVE); INFLUENZA B AMPLIFICATION NEGATIVE (NEGATIVE)
[2019-05-02] MEDS ORDERED: VANCOMYCIN HCL 1,250 MG in D5W 250 ML IV ONE (00:15)
[2019-05-02] MEDS ORDERED: IMIPENEM/CILASTATIN 500 MG in D5W MINI-BAG PLUS 100 ML IV ONE (00:15)
[2019-05-02] MEDS ORDERED: SODIUM CHLORIDE 0.9% 1000ML IV STA (00:25)
[2019-05-02] MEDS ORDERED: MAALOX 30 ML SUSP *UDC PO PRN (00:30)
[2019-05-02] MEDS ORDERED: SODIUM CHLORIDE 0.9% INJ 10 ML SYR IV PRN (00:30)
[2019-05-02] MEDS ORDERED: ACETAMINOPHEN TAB 650MG DOSE (2X325MG) PO PRN (00:30)
[2019-05-02 00:48] LABS: APPEARANCE, URINE HAZY (CLEAR); BILIRUBIN, URINE AUTO NEGATIVE (NEGATIVE); COLOR, URINE AMBER (YELLOW); GLUCOSE, URINE (UA) AUTO 1+ mg/dL (NEGATIVE); KETONE, URINE AUTO NEGATIVE (NEGATIVE); NITRITE, URINE AUTO NEGATIVE (NEGATIVE); PROTEIN, URINE AUTO 1+ mg/dL (NEGATIVE); SPECIFIC GRAVITY URINE AUTO 1.023 (1.002-1.035)
[2019-05-02 00:49] LABS: BACTERIA, URINE AUTO NEGATIVE (NEGATIVE); BLOOD, URINE BLOOD NEGATIVE (NEGATIVE); LEUKOCYTE ESTERASE, URINE AUTO NEGATIVE (NEGATIVE); RBC, URINE AUTO 2 /HPF (0-3); SQUAMOUS EPITHELIAL CELL UR AU 1 /HPF (0-6); WBC, URINE AUTO 5 /HPF (0-3)
[2019-05-02] MEDS ORDERED: HEPA100I9 IV (01:15)
[2019-05-02] MEDS ORDERED: MIRA1POW3 GT (01:15)
[2019-05-02] MEDS ORDERED: NICO14DI31 TD (01:15)
[2019-05-02] MEDS ORDERED: SODI0.9N3 INH (01:15)
[2019-05-02] MEDS ORDERED: ACET160O13 GT (01:15)
[2019-05-02] MEDS ORDERED: SLF3ML IV (01:15)
[2019-05-02] MEDS ORDERED: ACET-897 PO (01:15)
--- NOTE | 2019-05-02 01:30 | REPVR ---
PROCEDURE INFORMATION: Exam: CT Chest Without Contrast Exam date and time: 05/02/2019 12:23 AM Age: 59 years old Clinical indication: Other: Pneumonia? ; Additional info: R/O pna TECHNIQUE: Imaging protocol: Computed tomography of the chest without contrast. 3D rendering: MIP and/or 3D reconstructed images were created by the technologist. Radiation optimization: All CT scans at this facility use at least one of these dose optimization techniques: automated exposure control; mA and/or kV adjustment per patient size (includes targeted exams where dose is matched to clinical indication); or iterative reconstruction. COMPARISON: CR Chest, 2 view PA, Lat 05/01/2019 10:50 PM FINDINGS: Tubes, catheters and devices: Tracheostomy in place. Right PICC terminates in the mid superior vena cava. Percutaneous gastrostomy tube in place. Lungs: Calcified granulomata at the bilateral lung bases. Linear atelectasis or scarring in the right lower lobe. Interval development of an 8 mm pulmonary nodule in the anterior left upper lobe on image number 34. Interval development of a 1 cm pulmonary nodule in the superior segment of the left upper lobe best seen on image number 36. Pleural space: Unremarkable. No pneumothorax. No pleural effusion. Heart: Unremarkable. No cardiomegaly. No pericardial effusion. Mediastinum: Small hiatal hernia. Aorta: Mild atherosclerotic disease. Lymph nodes: Unremarkable. No enlarged lymph nodes. Liver: Mild liver contour nodularity concerning for cirrhosis. Gallbladder and bile ducts: Cholelithiasis. No specific evidence of acute cholecystitis. Bones/joints: Mild multilevel degenerative disease of the thoracic spine. Soft tissues: Unremarkable. IMPRESSION: No evidence of pneumonia. Interval development of left upper and lower lobe pulmonary nodules. For patients at low risk (minimal or absent history of smoking and of other known risk factors), recommend CT at 3-6 months, then consider CT at 18-24 months. For patients at high risk (history of smoking or of other known risk factors), recommend CT at 3-6 months, then CT at 18-24 months. (rohan Zimmer., Fleischner Society, 2017) Electronically signed by: Luis Enrique Cloud On 05/02/2019 01:29:46 AM
[2019-05-02 01:46] VITALS: BP 99/58
[2019-05-02] MEDS ORDERED: SODIUM CHLORIDE 0.9% 3ML NEB SOLUTION FOR INHALATION INH PRN (02:00)
[2019-05-02] MEDS ORDERED: MIRALAX *UNIT DOSE* 17GM PACKET GT PRN (02:00)
--- NOTE | 2019-05-02 02:20 | REP ---
Clinical: Cough and fever. Neutropenic. Technique: PA and lateral. Comparison: 11/1937. Findings: Tracheostomy overlies the airway. Right PICC line with tip in the SVC. Mediastinum and cardiac silhouette are normal. Lung raman are relatively clear and without focal consolidation, effusion, or pneumothorax. Skeletal structures are intact. Impression: No focal consolidation or effusion. Electronically Signed by Aneudy Mott MD 05/02/2019 02:12 A
--- NOTE | 2019-05-02 02:55 | PHACANCOPD ---
PHARMACY VANCOMYCIN DOSING Pt Demographics Demographics Patient Age:59 , Weight:57.500 , Gender: male Adjusted Body Weight Date: 05/02/19, Adjusted Body Weight: Kg Events Past 24 Hours Events Past 24 Hours: NO: Dialysis, Diuretic Therapy, Change in CrCl, Fever, Elevation in WBC, Pending Diagnostics, Pending Procedures, Other Vancomycin Vancomycin Target Ranges: 15-20 mcg/ml Vancomycin Load Y/N: Yes Load Dose Date Time Vancomycin Load Dose: 1000mg Date: 05-01 Time: 0000 Vancomycin Dose Date: 05/02/19. Current Vancomycin Dose: [1000mg q8h] Intermittent Dosing?: No Labs Labs Item Value Date Time White Blood Count 0.8 10^3/uL *L 05/01/192130 Glomerular Filtration Rate > 60.0 05/01/192130 Creatinine 1.07 MG/DL 05/01/192130 Blood Urea Nitrogen 29 MG/DL H 05/01/192130 Vital Signs Label Value Date Time Patient Temperature 97.8 degrees F 05/02/19 0048 Temperature Source Oral 05/02/19 0048 Micro Microbiology 05/01/19 Respiratory Virus Panel (PCR) (SHARDA) - Final, Complete 05/01/19 Blood Culture, Received Pending 05/01/19 Blood Culture, Received Pending Creatinine Clearance Date:05/02/19. Creatinine Clearance: [~70]. Pending Labs trough 05-01 @1500 Assessment and Plan Maintaining Current Dose?: Yes Reason for dose change: No Dose Change Pharmacist Note Pharmacist Note Date: 05/02/19. Pharmacist note:will monitor and make adjustments as needed. FLORINDA HART PHARMACY May 02, 2019 02:54
[2019-05-02] MEDS: FILGRASTIM 300 MCG/0.5 ML SYRINGE (J1442 PER 1MCG) SC SCH (03:52)
[2019-05-02 04:00] VITALS: BP 99/60
[2019-05-02] MEDS ORDERED: ACETAMINOPHEN TAB 650MG DOSE (2X325MG) PO ONE (04:00)
[2019-05-02 04:55] LABS: HEMATOCRIT 23.8 % (42.0-52.0); HEMOGLOBIN 8.7 g/dl (13.5-17.5); MEAN CORPUSCULAR HEMOGLOBIN 31.9 pg (27.0-33.0); MEAN CORPUSCULAR HGB CONC 36.6 g/dl (32.0-36.5); MEAN CORPUSCULAR VOLUME 87.2 fl (80.0-96.0); RED BLOOD COUNT 2.73 10^6/uL (4.30-6.10)
[2019-05-02 05:13] LABS: PLATELET COUNT, AUTOMATED 79 10^3/uL (150-450); WHITE BLOOD COUNT 0.7 10^3/uL (4.0-10.0)
[2019-05-02 05:42] LABS: ALBUMIN 2.4 GM/DL (3.2-5.2); ALT/SGPT 20 U/L (12-78); BILIRUBIN,TOTAL 0.7 MG/DL (0.2-1.0); BLOOD UREA NITROGEN 26 MG/DL (7-18); CALCIUM LEVEL 7.4 MG/DL (8.5-10.1); CARBON DIOXIDE LEVEL 25 MEQ/L (21-32); CHLORIDE LEVEL 104 MEQ/L (98-107); CREATININE FOR GFR 0.88 MG/DL (0.70-1.30); GLOMERULAR FILTRATION RATE > 60.0 (>56); GLUCOSE, FASTING 111 MG/DL (70-100); MAGNESIUM LEVEL 1.8 MG/DL (1.8-2.4); POTASSIUM SERUM 3.4 MEQ/L (3.5-5.1); SODIUM LEVEL 135 MEQ/L (136-145); TOTAL PROTEIN 5.9 GM/DL (6.4-8.2)
[2019-05-02] MEDS ORDERED: methylPREDNISolone INJ 125 MG/2 ML VIAL (J2930) IV STA (06:44)
[2019-05-02] MEDS ORDERED: ALBUTEROL SULFATE 2.5 MG/0.5 ML INH NEB SOLN NEB PRN (06:45)
--- NOTE | 2019-05-02 06:48 | HPEPDOC ---
[facility] Medical History & Physical Date of Admission May 02, 2019 Date of Service: May 02, 2019 Primary Care Physician: JACLYN LEYVA M.D. Attending Physician: CHRISTIAN COLLINS MD History and Physical TIME OF SERVICE: 1:25 AM CHIEF COMPLAINT: Fever HISTORY OF PRESENT ILLNESS: This is a 59 yr old gentleman who presents with complaints of fever and cough productive of cream-colored sputum that began today. He has small cell lung cancer and last had chemotherapy on Monday. In the ER, he met SIRS criteria, and was noted to have pancytopenia; a source of infection was not identified, nevertheless received vancomycin & imipenem. REVIEW OF SYSTEMS: 12 point review of systems negative except as listed in HPI PAST MEDICAL/ SURGICAL HISTORY: COPD Periodic limb movement disorder Alcoholic liver cirrhosis. 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 HOME MEDICATIONS: Please see below. Vital Signs Date Time Temp Pulse Resp B/P (MAP) Pulse Ox O2 Delivery O2 Flow Rate FiO2 05/01/19 20:51 100.3 114 18 88/53 (65) 98 Room Air PHYSICAL EXAMINATION: GEN: Cachectic HEENT: NCAT / mucus membranes dry / he has a T piece in place, draining copious amounts of phlegm when he coughs CVS: RRR/NMRG LUNGS: He has expiratory rhonchi bilaterally ABDOMEN: Contour (scaphoid) / soft & not tender with palpation MSK/EXTREMITIES: range of motion intact in all 4 extremities NEURO: CN 2-12 are grossly intact PSYCH: alert and oriented to person place and time/ able to understand and follow all commands LABORATORY DATA: Immature Granulocyte % (Auto) 0.0, Neutrophils (%) (Auto) 4.9L, Lymphocytes (%) (Auto) 61.0H, Monocytes (%) (Auto) 32.9H, Eosinophils (%) (Auto) 0.0, Basophils (%) (Auto) 1.2H, Neutrophils # (Auto) 0.0L, Lymphocytes # (Auto) 0.5L, Monocytes # (Auto) 0.3, Eosinophils # (Auto) 0.0, Basophils # (Auto) 0.0, Nucleated Red Blood Cells % (auto) 0.0, Anion Gap 5L, Glomerular Filtration Rate > 60.0, Lactic Acid Level 1.3, Calcium Level 8.2L, Total Bilirubin 0.7, Aspartate Amino Transf (AST/SGOT) 21, Alanine Aminotransferase (ALT/SGPT) 26, Alkaline Phosphatase 74, Total Protein 7.3, Albumin 3.0L, Albumin/Globulin Ratio 0.70L, Influenza Type A (RT-PCR) NEGATIVE, Influenza Type B (RT-PCR) NEGATIVE Urine Color CHELI, Urine Appearance HAZY, Urine pH 5.0, Urine Specific [place] 1.023, Urine Protein 1+H, Urine Glucose (Auto)(UA) 1+H, Urine Ketones (Auto) NEGATIVE, Urine Blood NEGATIVE, Urine Nitrite NEGATIVE, Urine Bilirubin NEGATIVE, Urine Urobilinogen 2.0H, Urine Leukocyte Esterase (Auto) NEGATIVE, Urine WBC (Auto) 5H, Urine RBC (Auto) 2, Urine Hyaline Casts (Auto) 1, Urine Bacteria Nucleated Red Blood Cells % (auto) 0.0, Anion Gap 6L, Glomerular Filtration Rate > 60.0, Calcium Level 7.4L, Total Bilirubin 0.7, Aspartate Amino Transf (AST/SGOT) 19, Alanine Aminotransferase (ALT/SGPT) 20, Alkaline Phosphatase 62, Total Protein 5.9L, Albumin 2.4L, Albumin/Globulin Ratio 0.69L, Immature Platelet Fraction 2.4, Magnesium Level 1.8 IMAGING: Chest x-ray "Impression: No focal consolidation or effusion." CT chest "IMPRESSION: No evidence of pneumonia." MICROBIOLOGY: 05/01/19 Respiratory Virus Panel (PCR) ([facility]ARDA) - Final, Complete 05/01/19 Blood Culture, Received Pending 05/01/19 Blood Culture, Received Pending ASSESSMENT: Mr. Hinds is a 59-year-old a history of COPD, liver cirrhosis, tobacco abuse and squamous cell carcinoma of the tongue who is admitted for management of neutropenic fever. PLAN: 1. Neutropenic fever His absolute neutrophil count was 39 yesterday Plan: Admit to PCU/per discussion with Dr. Berry we started Neupogen, he can receive 300 g per day until his absolute neutrophil count is 1500 / neutropenic precautions / continue with current antibiotics and IV fluids 2. Acute COPD Likely due to viral URI or changes in the weather Plan: continuous pulse oximetry / aspiration precautions / f/u VBG / Dunebs Q6H, Albuterol Q1HP, Solumedrol w PPI 3. Squamous cell cancer of the tongue - follow-up with oncology as scheduled 4. Protein calorie nutrition with BMI of 17 - GI soft diet with Jevity tube feeds DVT PROPHYLAXIS: Lovenox DISPOSITION: Home after more than 2 midnight's stay Home Medications Scheduled Acetaminophen (Tylenol Extra Strength) 500 Mg Tablet, 500 MG PO ASDIRECTED ONE TIME DOSE Heparin Sodium,Porcine/Pf (Heparin 300 Unit/3 ml (100/ml)) 300 Unit/3 Ml Syringe, 300 UNIT IV QPM Lansoprazole (Lansoprazole) 30 Mg Tab.rap.dr, 1 TAB GT QPM DISSOLVE 1 TABLET IN 10ML LIQUID DIRECTED AND ADMINISTER ONCE DAILY. FLUSH TUBE AFTER ADMINISTRATION Nicotine (Nicotine Patch) 14 Mg/24 Hr Patch.td24, 14 MG TD DAILY Saline Lock Flush (Normal Saline Flush) 3 Ml Syringe, 3 ML IV QPM Scheduled PRN Acetaminophen (Children's Tylenol) 160 Mg/5 Ml Oral.susp, 480 MG GT Q4H PRN for PAIN / FEVER Polyethylene Glycol 3350 (Miralax) 17 Gm Powd.pack, 17 GM GT DAILY PRN for CONSTIPATION Sodium Chloride For Inhalation (Sodium Chloride 0.9% Saline Neb) 3 Ml Vial.neb, 3 ML INH Q2H PRN for TRACH CARE USES SPECIAL NEBULIZER FOR TRACH Allergies Coded Allergies: No Known Allergies (Unverified , 05/01/19) A-FIB/CHADSVASC A-FIB History Current/History of A-Fib/PAF?: No Current PO Anticoag Therapy: No CHRISTIAN COLLINS MD May 02, 2019 06:47
[2019-05-02] MEDS: IPRATROPIUM 0.5MG/ALBUTEROL 2.5MG INH SOL UD 3ML (DUONEB)(J7620) NEB SCH ×3 (07:38→18:32)
[2019-05-02] MEDS: PANTOPRAZOLE 40MG INJ (PROTONIX) (C9113) IV SCH (08:35)
[2019-05-02] MEDS: VANCOMYCIN HCL 1,000 MG, VIAL MATE ADAPTER 1 EACH in D5W 250 ML IV SCH ×2 (08:36→16:20)
[2019-05-02] MEDS: ENOXAPARIN 30 MG/0.3 ML SYR (J1650) SC SCH (08:36)
[2019-05-02 08:45] LABS: HEMOGLOBIN 9.8 g/dl (13.5-17.5)
[2019-05-02] MEDS ORDERED: MEROPENEM INJ 1 GM in IV 1 EA IV SCH (09:00)
[2019-05-02] MEDS: DOCUSATE SODIUM 100 MG CAP PO SCH ×2 (09:00→21:00)
[2019-05-02] MEDS ORDERED: NICOTINE 14 MG/24 HR TRANSDERMAL TD SCH (09:00)
[2019-05-02] MEDS: HumaLOG INSULIN (NovoLOG) PER UNIT SC SCH ×4 (09:21→21:46)
[2019-05-02] MEDS: NICOTINE 14 MG/24 HR TRANSDERMAL TD SCH (09:23)
[2019-05-02 10:58] VITALS: BP 96/57
[2019-05-02] MEDS ORDERED: ACETAMINOPHEN 325 MG/10.15 ML UDC PO PRN (12:00)
[2019-05-02] MEDS ORDERED: POTASSIUM CHLORIDE 10% LIQ 20 MEQ/15 ML UDC PEG ONE (14:15)
[2019-05-02 14:58] VITALS: BP 95/56
[2019-05-02] MEDS ORDERED: methylPREDNISolone INJ 125 MG/2 ML VIAL (J2930) IV SCH (15:00)
[2019-05-02 17:00] VITALS: BP 89/57
[2019-05-02] MEDS ORDERED: LANSOPRAZOLE SUSPENSION 30 MG/10 ML ORAL SYRINGE (FIRST-LANSOPRAZOLE) GT SCH (21:00)
[2019-05-02] MEDS: SLF 3 ML SYR IV SCH (21:00)
[2019-05-02 22:00] VITALS: BP 92/56
[2019-05-03] MEDS: CEFEPIME HCL 2 GM in D5W MINI-BAG PLUS 50 ML IV SCH ×3 (00:10→17:19)
[2019-05-03] MEDS: IPRATROPIUM 0.5MG/ALBUTEROL 2.5MG INH SOL UD 3ML (DUONEB)(J7620) NEB SCH ×5 (00:34→23:55)
[2019-05-03] MEDS: VANCOMYCIN HCL 1,000 MG, VIAL MATE ADAPTER 1 EACH in D5W 250 ML IV SCH ×2 (03:46→15:59)
[2019-05-03 06:00] VITALS: BP 89/53
[2019-05-03 06:14] LABS: BLOOD UREA NITROGEN 21 MG/DL (7-18); CALCIUM LEVEL 8.1 MG/DL (8.5-10.1); CARBON DIOXIDE LEVEL 25 MEQ/L (21-32); CHLORIDE LEVEL 103 MEQ/L (98-107); GLOMERULAR FILTRATION RATE > 60.0 (>56); GLUCOSE, FASTING 189 MG/DL (70-100); POTASSIUM SERUM 3.6 MEQ/L (3.5-5.1); SODIUM LEVEL 134 MEQ/L (136-145)
[2019-05-03 06:31] LABS: HEMATOCRIT 24.5 % (42.0-52.0); HEMOGLOBIN 8.9 g/dl (13.5-17.5); MEAN CORPUSCULAR HEMOGLOBIN 31.9 pg (27.0-33.0); MEAN CORPUSCULAR HGB CONC 36.3 g/dl (32.0-36.5); MEAN CORPUSCULAR VOLUME 87.8 fl (80.0-96.0); RED BLOOD COUNT 2.79 10^6/uL (4.30-6.10)
[2019-05-03 06:35] LABS: PLATELET COUNT, AUTOMATED 88 10^3/uL (150-450); WHITE BLOOD COUNT 1.4 10^3/uL (4.0-10.0)
[2019-05-03] MEDS: POTASSIUM CHLORIDE 10 MEQ SR TABLET PO ONE ×2 (08:00→10:08)
[2019-05-03] MEDS: ENOXAPARIN 30 MG/0.3 ML SYR (J1650) SC SCH (09:00)
[2019-05-03] MEDS ORDERED: predniSONE 20 MG TAB PO SCH (09:00)
[2019-05-03] MEDS: DOCUSATE SODIUM 100 MG CAP PO SCH ×2 (09:00→22:04)
[2019-05-03] MEDS: PANTOPRAZOLE 40MG INJ (PROTONIX) (C9113) IV SCH (10:06)
[2019-05-03] MEDS: FILGRASTIM 300 MCG/0.5 ML SYRINGE (J1442 PER 1MCG) SC SCH (10:07)
[2019-05-03] MEDS: NICOTINE 14 MG/24 HR TRANSDERMAL TD SCH (10:08)
[2019-05-03] MEDS: HumaLOG INSULIN (NovoLOG) PER UNIT SC SCH ×4 (10:09→22:12)
[2019-05-03] MEDS ORDERED: POTASSIUM CHLORIDE 10% LIQ 20 MEQ/15 ML UDC PEG ONE (10:45)
[2019-05-03 14:00] VITALS: BP 98/65
[2019-05-03 22:00] VITALS: BP 92/60
--- NOTE | 2019-05-03 22:11 | IPNPDOC ---
Date Seen The patient was seen on 05/03/19. Progress Note SUBJECTIVE: 51-year-old male with past medical history of tongue/throat cancer status post recent chemotherapy (first cycle), status post tracheostomy and PEG placement was admitted for neutropenic fever. Patient had a PICC line placed in the right arm which has been removed since yesterday, afebrile since then, has remained asymptomatic throughout hospitalization. Otherwise. He denies any short of breath, chest pain, nausea, vomiting, abdominal pain, diarrhea or constipation. 10 point review of system is negative except for above PHYSICAL EXAMINATION: VITAL SIGNS: Please see below. GENERAL: No distress HEENT: Normocephalic, atraumatic, moist mucous membranes NECK: Trach in place CARDIOVASCULAR EXAMINATION: S1, S2, no murmurs RESPIRATORY EXAMINATION: Clear to auscultation, no wheezing ABDOMINAL EXAMINATION: Soft, nontender, nondistended, positive bowel sounds, PEG tube in place EXTREMITIES: Range of motion intact SKIN: No rash NEUROLOGICAL EXAMINATION: Alert and oriented 3, no focal deficits PSYCHIATRIC EXAMINATION: Calm and cooperative LABORATORY DATA, IMAGING STUDIES, MICROBIOLOGY: Please see below. ASSESSMENT AND PLAN: 59-year-old male with past medical history of tongue/throat cancer status post recent chemotherapy who was admitted for neutropenic fever PROBLEMS: 1. Neutropenic fever: Recent completion of chemotherapy for the cholesterol cancer, continue Neupogen, white blood cell count improving, continue empiric vancomycin and cefepime, PICC line has been removed, cultures negative to date. 2. Tongue/throat cancer: Recently diagnosed, underwent first session of chemotherapy 1 week ago, status post tracheostomy and PEG tube placement. 3. Diabetes mellitus. Sliding scale insulin with meals and at bedtime DVT prophylaxis: Heparin subcutaneous GI prophylaxis: Protonix VS, I&O, 24H, Fishbone Vital Signs/I&O Vital Signs Date Time Temp Pulse Resp B/P (MAP) Pulse Ox O2 Delivery O2 Flow Rate FiO2 05/03/19 14:00 97.5 88 18 98/65 (76) 95 05/03/19 06:00 Room Air I&O- Last 24 Hours up to 6 AM 05/03/19 06:00 Intake Total 2580 ml Output Total 700 ml Balance 1880 ml Laboratory Data 24H LABS Laboratory Tests 2 05/03/19 05:25: Nucleated Red Blood Cells % (auto) 0.0, Immature Platelet Fraction 5.4 05/03/19 05:27: Anion Gap 6L, Glomerular Filtration Rate > 60.0, Calcium Level 8.1L, Magnesium Level 2.0 05/03/19 12:04: Bedside Glucose (Misc Panel) 147H 05/03/19 16:48: Bedside Glucose (Misc Panel) 300H 05/03/19 19:05: Random Vancomycin Level 29.1 05/03/19 20:16: Bedside Glucose (Misc Panel) 264H CBC/BMP Laboratory Tests 05/03/19 05:25 05/03/19 05:27 Microbiology Microbiology 05/02/19 Catheter Tip Culture, Received Pending 05/01/19 Respiratory Virus Panel (PCR) (SHARDA) - Final, Complete 05/01/19 Blood Culture - Preliminary, Resulted No Growth after 48 hours. All Specime... 05/01/19 Blood Culture - Preliminary, Resulted No Growth after 48 hours. All Specime... ERIC LYON MD May 03, 2019 22:11
[2019-05-03] MEDS: SLF 3 ML SYR IV SCH (22:12)
[2019-05-04] MEDS: CEFEPIME HCL 2 GM in D5W MINI-BAG PLUS 50 ML IV SCH ×2 (01:19→08:18)
[2019-05-04] MEDS: VANCOMYCIN HCL 1,000 MG, VIAL MATE ADAPTER 1 EACH in D5W 250 ML IV SCH (04:17)
[2019-05-04 06:00] VITALS: BP 98/56
[2019-05-04 06:06] LABS: HEMATOCRIT 25.9 % (42.0-52.0); MEAN CORPUSCULAR HEMOGLOBIN 31.5 pg (27.0-33.0); MEAN CORPUSCULAR HGB CONC 34.7 g/dl (32.0-36.5); MEAN CORPUSCULAR VOLUME 90.6 fl (80.0-96.0); PLATELET COUNT, AUTOMATED 118 10^3/uL (150-450); RED BLOOD COUNT 2.86 10^6/uL (4.30-6.10); WHITE BLOOD COUNT 4.7 10^3/uL (4.0-10.0)
[2019-05-04 06:14] LABS: BLOOD UREA NITROGEN 17 MG/DL (7-18); CALCIUM LEVEL 8.3 MG/DL (8.5-10.1); CARBON DIOXIDE LEVEL 26 MEQ/L (21-32); CHLORIDE LEVEL 108 MEQ/L (98-107); CREATININE FOR GFR 0.79 MG/DL (0.70-1.30); GLOMERULAR FILTRATION RATE > 60.0 (>56); GLUCOSE, FASTING 132 MG/DL (70-100); POTASSIUM SERUM 4.3 MEQ/L (3.5-5.1); SODIUM LEVEL 139 MEQ/L (136-145)
[2019-05-04 06:20] LABS: ANISOCYTOSIS 1+; DOHLE BODIES 1+; LYMPHOCYTES 30 % (16-44); METAMYELOCYTES 1 % (0-0); MONOCYTES 25 % (0-5); NEUTROPHILS 44 % (28-66); POIKILOCYTOSIS 1+; POLYCHROMASIA 1+
[2019-05-04 06:21] LABS: PLATELET ESTIMATE DECREASED (NORMAL)
[2019-05-04] MEDS: IPRATROPIUM 0.5MG/ALBUTEROL 2.5MG INH SOL UD 3ML (DUONEB)(J7620) NEB SCH (07:36)
[2019-05-04] MEDS: HumaLOG INSULIN (NovoLOG) PER UNIT SC SCH (08:17)
[2019-05-04] MEDS: PANTOPRAZOLE 40MG INJ (PROTONIX) (C9113) IV SCH (08:18)
[2019-05-04] MEDS: DOCUSATE SODIUM 100 MG CAP PO SCH (08:18)
[2019-05-04] MEDS: ENOXAPARIN 30 MG/0.3 ML SYR (J1650) SC SCH (08:18)
[2019-05-04] MEDS: NICOTINE 14 MG/24 HR TRANSDERMAL TD SCH (08:19)
--- NOTE | 2019-05-04 17:29 | DS.PDOC ---
Discharge Summary General Date of Admission May 02, 2019 at 00:25 Date of Discharge 05/04/19 Attending Physician: ERIC LYON MD Discharge Summary PROCEDURES PERFORMED DURING STAY: None. ADMITTING DIAGNOSES: 1. Neutropenic fever. DISCHARGE DIAGNOSES: 1. Neutropenic fever. COMPLICATIONS/CHIEF COMPLAINT: Fever; Pancytopenia. HISTORY OF PRESENT ILLNESS: 59-year-old male with past medical history of tongue/throat cancer which was recently diagnosed and he underwent his first chemotherapy one to 2 weeks ago, was admitted for neutropenic fever. Patient was asymptomatic and has remained asymptomatic throughout hospitalization, he continued to have fever spikes despite initiation of antibiotics, PICC line in the right arm was removed. The patient has remained afebrile since then. Patient is seen in the morning, without any complaints, remains at baseline, clinically hemodynamically stable for discharge and outpatient follow-up. Patient was scheduled to receive an Myfras-a-Cuwp anyway, which he can follow-up outpatient to have prior to his next dose of chemotherapy. Patient's workup for infection has all come back negative, empiric vancomycin and cefepime have been discontinued and patient does not require any further antibodies at this time. HOSPITAL COURSE: As above. DISCHARGE MEDICATIONS: Please see below. ALLERGIES: Please see below. PHYSICAL EXAMINATION: VITAL SIGNS: Please see below. GENERAL: No distress HEENT: Normocephalic, atraumatic, moist mucous membranes NECK: Trach in place CARDIOVASCULAR EXAMINATION: S1, S2, no murmurs RESPIRATORY EXAMINATION: Clear to auscultation, no wheezing ABDOMINAL EXAMINATION: Soft, nontender, nondistended, positive bowel sounds, PEG tube in place EXTREMITIES: Range of motion intact SKIN: No rash NEUROLOGICAL EXAMINATION: Alert and oriented 3, no focal deficits PSYCHIATRIC EXAMINATION: Calm and cooperative LABORATORY DATA: Please see below. IMAGING: CT chest negative for acute pathology PROGNOSIS: Fair ACTIVITY: As tolerated. DIET: Tube Feeding DISCHARGE PLAN: Follow with oncologist and PCP within 1-2 weeks DISPOSITION: 01 Home, Self-Care. DISCHARGE INSTRUCTIONS: 1. As above. DISCHARGE CONDITION: Stable. TIME SPENT ON DISCHARGE: Greater than 34 minutes. Vital Signs/I&Os Vital Signs Date Time Temp Pulse Resp B/P (MAP) Pulse Ox O2 Delivery O2 Flow Rate FiO2 05/04/19 06:00 98.4 99 18 98/56 (70) 99 Room Air I&O- Last 24 Hours up to 6 AM 3/14/20 06:00 Intake Total 2316 ml Output Total 1025 ml Balance 1291 ml Laboratory Data Labs 24H Laboratory Tests 2 05/03/19 19:05: Random Vancomycin Level 29.1 05/03/19 20:16: Bedside Glucose (Misc Panel) 264H 05/04/19 05:20: Neutrophils (%) (Auto) , Nucleated Red Blood Cells % (auto) 0.0, Neutrophils 44, Lymphocytes (Manual) 30, Monocytes (Manual) 25H, Metamyelocytes 1H, Polychromasia 1+, Poikilocytosis 1+, Anisocytosis 1+, Dohle Bodies 1+, Platelet Estimate DECREASED, Anion Gap 5L, Glomerular Filtration Rate > 60.0, Calcium Level 8.3L CBC/BMP Laboratory Tests 05/04/19 05:20 FSBS Laboratory Tests Test 05/03/19 20:16 Range/Units Bedside Glucose (Misc Panel) 264 70-105 MG/DL Microbiology Microbiology 05/02/19 Catheter Tip Culture - Final, Complete 05/01/19 Respiratory Virus Panel (PCR) (SHARDA) - Final, Complete 05/01/19 Blood Culture - Preliminary, Resulted No Growth after 48 hours. All Specime... 05/01/19 Blood Culture - Preliminary, Resulted No Growth after 48 hours. All Specime... Discharge Medications Scheduled Lansoprazole (Lansoprazole) 30 Mg Tab.rap.dr, 1 TAB GT QPM, (Reported) DISSOLVE 1 TABLET IN 10ML LIQUID DIRECTED AND ADMINISTER ONCE DAILY. FLUSH TUBE AFTER ADMINISTRATION Nicotine (Nicotine Patch) 14 Mg/24 Hr Patch.td24, 14 MG TD DAILY, (Reported) Scheduled PRN Acetaminophen (Children's Tylenol) 160 Mg/5 Ml Oral.susp, 480 MG GT Q4H PRN for PAIN / FEVER, (Reported) Polyethylene Glycol 3350 (Miralax) 17 Gm Powd.pack, 17 GM GT DAILY PRN for CONSTIPATION, (Reported) Sodium Chloride For Inhalation (Sodium Chloride 0.9% Saline Neb) 3 Ml Vial.neb, 3 ML INH Q2H PRN for TRACH CARE, (Reported) USES SPECIAL NEBULIZER FOR TRACH Allergies Coded Allergies: No Known Allergies (Unverified , 05/01/19) ERIC LYON MD May 04, 2019 17:29
== END 2019-05-04 12:14 | disposition home or self-care (01) | DRG 809 ==
LOC: M ED 20:50 → M ED INP 05-02 00:25 → ENRESERV 05-02 00:50 → M ICU 05-02 01:45 → M MSPAV 05-02 16:42
PROVIDERS: ADMIT Internal Medicine; ATTEND Internal Medicine
DX: D70.9 Neutropenia, unspecified (principal); J44.1 Chronic obstructive pulmonary disease with (acute) exacerbation; E46 Unspecified protein-calorie malnutrition; Z68.1 Body mass index [BMI] 19.9 or less, adult; C02.9 Malignant neoplasm of tongue, unspecified; F17.200 Nicotine dependence, unspecified, uncomplicated; G47.61 Periodic limb movement disorder; K70.30 Alcoholic cirrhosis of liver without ascites; Z98.49 Cataract extraction status, unspecified eye; F10.21 Alcohol dependence, in remission; Z93.0 Tracheostomy status; Z93.1 Gastrostomy status; Z79.899 Other long term (current) drug therapy

== ENCOUNTER → 2019-05-09 | Outpatient (CLI) | payer OTHER ==
[~2019-05-09] MED LIST changes: +ACET-683 PO; +ACET-897 PO; +ACET160L16 PO; +ACET160O13 GT; +BD P0.9I2; +HEPA100I9; +HEPA100I9 IV; +LIDOCAINE 1% MDV 20ML VIAL As Ordered ONE; +MIDAZOLAM INJ 2 MG/2 ML VIAL (J2250) As Ordered ONE; +MIRA1POW3 GT; +NICO14DI31 TD; +SLF3ML IV; +SODI0.9N3 INH; +ceFAZolin 1GM INJ (J0690 PER 500MG) As Ordered ONE; +diphenhydrAMINE INJ 50MG/ML VIAL (J1200) As Ordered ONE; +fentaNYL 100 MCG/2 ML INJECTION (J3010) As Ordered ONE
--- NOTE | 2019-05-09 15:21 | IRHP ---
[facility] IR Pre-Procedure H & P General Date of Service: May 09, 2019 Procedure: Same Day Surgery Interval History and Physical I have seen the patient and reviewed last H & P performed within 30 days. There is no significant interval change. History of Present Illness Chief Complaint The patient is a 59-year-old male admitted with a reason for visit of Polycythemia, Chemo. PRE-PROCEDURE DIAGNOSIS: head and neck cancer HEART: normal rate. LUNGS: normal breathing at rest. ASA Classification ASA Classification: III-Severe systemic dis. Mallampati Score: II NPO: Yes Problems with prior sedation: No Obstructive Sleep Apnea: No Plan moderate sedation Allergies Coded Allergies: No Known Allergies (Unverified , 05/01/19) Home Medications Scheduled Lansoprazole (Lansoprazole), 1 TAB GT QPM, (Reported) Nicotine (Nicotine Patch), 14 MG TD DAILY, (Reported) Scheduled PRN Acetaminophen (Children's Tylenol), 480 MG GT Q4H PRN for PAIN / FEVER, (Reported) Polyethylene Glycol 3350 (Miralax), 17 GM GT DAILY PRN for CONSTIPATION, (Reported) Discontinued Medications 0.9 % Sodium Chloride (Normal Saline Flush), (Reported) Discontinued Reason: Re-entering as new Acetaminophen (Acetaminophen), 1 TAB PO Q6H, (Reported) Discontinued Reason: Re-entering as new Acetaminophen (Acetaminophen), 15 ML PO Q4H, (Reported) Discontinued Reason: Re-entering as new Acetaminophen (Tylenol Extra Strength), 500 MG PO ASDIRECTED, (Reported) Heparin Sodium,Porcine/Pf (Heparin 300 Unit/3 ml (100/ml)), (Reported) Discontinued Reason: Re-entering as new Heparin Sodium,Porcine/Pf (Heparin 300 Unit/3 ml (100/ml)), 300 UNIT IV QPM, (Reported) Nicotine (Nicotine Patch), 1 PATCH TD QPM Discontinued Reason: Re-entering as new Saline Lock Flush (Normal Saline Flush), 3 ML IV QPM, (Reported) Sodium Chloride For Inhalation (Sodium Chloride 0.9% Saline Neb), 3 ML INH Q2H PRN for TRACH CARE, (Reported) Discontinued Reason: Pt states not taking VS, I&O, 24H, Fishbone Vital Signs/I&O Vital Signs Date Time Temp Pulse Resp B/P (MAP) Pulse Ox O2 Delivery O2 Flow Rate FiO2 05/09/19 15:05 71 16 99 05/09/19 14:55 Nasal Cannula 2 05/09/19 13:44 97.7 Laboratory Data 24H LABS Laboratory Tests 2 05/09/19 14:30: Lab Scanned Report LAB OTHER ALEJANDRA PERALES MD May 09, 2019 15:21
--- NOTE | 2019-05-09 15:22 | POST-OPPD ---
Postoperative Procedure Note Date Of Procedure: May 09, 2019 Time Of Procedure: 15:21 PREOPERATIVE DIAGNOSIS: head and neck ca POSTOPERATIVE DIAGNOSIS: same FINDINGS: patent right IJ PROCEDURE: right sided port SURGEON: neyda ANESTHESIA: mod sed ESTIMATED BLOOD LOSS: < 5 ml COMPLICATIONS: none POSTOPERATIVE CONDITION: stable ALEJANDRA PERALES MD May 09, 2019 15:22
--- NOTE | 2019-05-09 15:32 | REP ---
IR Ultrasound and fluoroscopy-guided port placement. IR Ultrasound of the neck. IR Moderate sedation. Clinical information: Head and neck cancer. Physician: Dr. Lee. Procedure: The patient was advised of the benefits, risks, and alternatives of the procedure and informed consent was obtained. A time-out was performed with verification of the patient's name, MRN, site of procedure and type of procedure to be performed. The patient was positioned in the supine position on the angiographic table. The site was prepped and draped in the usual sterile fashion. Moderate sedation was performed by the physician including the presence of an independent trained observer who assisted and monitored the patient's level of consciousness and physiologic status. Following the administration of fentanyl and Versed, the physician spent 45 minutes of continuous face to face time with the patient. Ultrasound of the neck reveals a patent and compressible right internal jugular vein. A sql database developer radiograph reveals a tracheostomy. The neck and anterior chest wall were anesthetized with lidocaine. The right internal jugular vein was accessed using a microintroducer needle under ultrasound guidance, via a lateral approach. An 018 wire was advanced into the superior vena cava, the needle was removed and a microsheath was placed. An Amplatz wire was then passed into the inferior vena cava. An incision at the internal jugular vein access site and anterior chest wall were made using a scalpel. An incision was made at the anterior chest wall. A small pocket was created using a combination of blunt and sharp dissection. A tunneling device was then used to pass the catheter from the pocket to the neck puncture site. An 8-[employer]amib[employer] Ang[employer] Smart power port was then positioned in the pocket. The catheter was then measured and cut. The introducer sheath was exchanged for a peel-away sheath. The catheter was passed through the peel-away sheath into the internal jugular vein and the peel-away sheath was removed. The port tip was positioned at the cavoatrial junction. The port was then accessed with a Caro needle. The port flushes and aspirates well. The puncture site in the neck was closed. The chest wall incision was then closed with 2-0 Vicryl and 4-0 Monocryl. Glue and Steri-Strips were applied. A sterile dressing was then applied. The patient tolerated the procedure well and was returned to the PRU in stable condition. Estimated blood loss: <5 ml. Complications: None. Conclusion: 1. Successful placement of an 8-Namibian Angio dynamics Smart power port via the right internal jugular vein. The port is ready for immediate use. 2. Patient to follow up in IR clinic in 2 weeks. Thank you for this referral. Electronically Signed by Kim Lee MD 05/09/2019 03:32 P
[2019-05-09 17:00] VITALS: BP 109/56
== END ==
LOC: M IRPRO 13:29
PROVIDERS: ATTEND Radiology Diagnostic Radiology
DX: C76.0 Malignant neoplasm of head, face and neck (principal); D75.1 Secondary polycythemia

== ENCOUNTER 2019-05-13 10:16 | Inpatient (IN) | payer OTHER ==
[~2019-05-13] VITALS: Ht 180.3 cm; Wt 65.0 kg
[~2019-05-13 10:16] MED LIST changes: +LIDO2.5C15 TOP; -LIDOCAINE 1% MDV 20ML VIAL As Ordered ONE; -MIDAZOLAM INJ 2 MG/2 ML VIAL (J2250) As Ordered ONE; +ONDA4TAB6 PO; -ceFAZolin 1GM INJ (J0690 PER 500MG) As Ordered ONE; -diphenhydrAMINE INJ 50MG/ML VIAL (J1200) As Ordered ONE; -fentaNYL 100 MCG/2 ML INJECTION (J3010) As Ordered ONE
[2019-05-13] MEDS ORDERED: ENOXAPARIN 40 MG/0.4 ML SYRINGE (J1650) SC ONE (14:30)
[2019-05-13] MEDS: D5W/0.45% SODIUM CHLORIDE 1,000 ML IV SCH ×2 (14:30→19:49)
--- NOTE | 2019-05-13 16:09 | HPE ---
DATE OF ADMISSION: 05/13/2019 MEDICAL ONCOLOGIST: Dr. Cueva CHIEF COMPLAINT: Intravenous fluids status post Paclitaxel and carboplatin. 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 Aaron Rapp, ENT surgeon, as well as PEG tube placement on 03/30/[address] Li. The patient was subsequently referred to Dr. Cueva for chemotherapy with plans for Paclitaxel and carboplatin with plans for radiation with Dr. Ramirez. After biopsy on 03/29/2019, the patient also underwent tracheostomy on 03/29/2019 and feeding tube placement by general surgeon, Dr. Li on 03/30/2019. The patient was then admitted for neutropenic fever secondary to chemotherapy April 2019, treated with broad spectrum antibiotics via peripherally inserted central catheter (PICC) line placed at that time on 04/02/2019. PICC line was subsequently discontinued at discharge.A right Ldlwey-X-Rzfl placement was done by IR Dr. Lee on 05/09/2019 and has received paclitaxel and carboplatin today in the [facility]. To decrease risk of nephrotoxicity, his medical oncologist, Dr. Cueva recommended 24hr hydration and admission for observation. The patient is to be started on D5 half normal saline at 250 mL per hour for 24 hours and if the creatinine is 0.72 or better, may be discharged home in the morning with outpatient followup with his medical oncologist. Review of Systems: The patient does admit to having previously suffered from dysphagia to solids when his tongue cancer was diagnosed, as well as hoarse voice. He did have a 40 pound weight loss before the feeding tube was put in and has since regained about 5 pounds. Energy level is the same. Has no fatigue or weakness. The patient denies any chest pain, pressure, tightness, shortness of breath, palpitations, lightheadedness, dizziness, fevers, chills, dysuria, urgency, frequency, diarrhea. He has a feeding tube placed without any abdominal pain. The patient has a history of emphysema, bronchospastic airway disease, history of cirrhotic liver secondary to chronic alcohol abuse, as well as a history of smoking. suctions his trach once daily. no residuals with his jevity tid via PEG. still eats for comfort. no aspiration. REVIEW OF SYSTEMS: All other systems were otherwise negative. PAST MEDICAL HISTORY: 1. Alcoholic liver cirrhosis. 2. Gastroesophageal reflux disease (GERD). 3. Emphysema. 4. Ocular cataract status post right eye excision of cataract. 5. 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 6. Chemotherapy induced neutropenia, neutropenic fever. 7. Recent diagnosis of left squamous cell carcinoma of the tongue and 8. Neutropenic fever in April 2019. 9. Left upper and lower lobe pulmonary nodules detected on CT of the chest on 05/02/2019. PAST SURGICAL HISTORY: 1. Biopsy on 03/29/2019 at the base of the tongue with subsequent diagnosis of squamous cell carcinoma at the left base, right base has adenocarcinoma. 2. Feeding tube placed on 03/30/2019. 3. Right Kfsvqk-Z-Eilq placement on 05/09/2019. 4. Ultrasound guided paracentesis for acetic fluid from chronic alcohol liver cirrhosis on 04/27/2017 and February 2017. 5. Right peripherally inserted central catheter (PICC) line in April 2019. 6. Tracheostomy March 29, 2019. 19 teeth were extracted. ALLERGIES: No known drug allergies. HOME MEDICATIONS: - lidocaine-procaine topically - nicotine patch 14 mg daily - Zofran 4 mg every 6 to 8 hours as needed SOCIAL HISTORY: History of alcohol abuse with alcohol liver cirrhosis. One pack a day smoking for 40 years, quit smoking, currently on nicotine replacement. The patient's last drink was in 2017. Lives with his , Herminia. Denies any recreational drug use. FAMILY HISTORY: Mother at the age of 45 from aspiration. Father from diabetic complications at the age of 55. REVIEW OF SYSTEMS: As per history of present illness. 12-point system otherwise negative. PHYSICAL EXAMINATION: VITAL SIGNS: temp 96 sinus 75 rr 19 11/65 98% Room air o2 saturation GENERAL: The patient has no conversational dyspnea. alopecia. Appears older than his stated age. No respiratory distress. Nonicteric sclerae. LUNGS: Clear to auscultation. No wheezing, rales or rhonchi. Air entry is equal bilaterally. HEENT: Trach in place. No erythema, tenderness or edema. ABDOMEN: Soft, nontender, nondistended. Positive bowel sounds times four quadrants. Feeding tube in place without erythema, tenderness or swelling. EXTREMITIES: No cyanosis or clubbing. SKIN: Warm, dry and well perfused. [place] in color. LABORATORY DATA: White count 4.5, hemoglobin 10.9, hematocrit 33, platelet count 275, 57% neutrophils, 26% lymphocytes. Sodium 140, potassium 4.2, chloride 107, bicarbonate 29, BUN 18, creatinine 0.72, glucose 128. Total bilirubin 0.2, AST 24, ALT 21, alkaline phosphatase 88, total protein 7.3, albumin 2.9. PET scan 04/09/2019 showed large hypermetabolic focus in the neck at the level of the blaine bone and base of the tongue. Hypermetabolic uptake along the tract of the tracheostomy, hypermetabolic uptake in the cervical lymph nodes, confluent enlarged nodes on the left. 7 mm hypermetabolic focus in the wall of the sigmoid colon, possibly colonic polyp, no other hypermetabolic foci. Chest CT on 05/02/2019 showed interval development of left upper and left lower lobe pulmonary nodules. For high risk patients with a history of smoking, recommend CT every 3 to 6 months. ASSESSMENT AND PLAN: 59-year-old male with a 40 pound weight loss, dysphagia to solids, presented to [facility] in February [address] of the neck on 03/26/2019 showing left supraglottic mass, thickening of the epiglottis, underwent biopsy on 03/29/2019 and found to have a right invasive poorly differentiated malignant tumor with squamous cell features and poorly differentiated adenocarcinoma at the right base, left base shows poorly differentiated squamous cell carcinoma. The patient then underwent tracheostomy by ENT surgeon, Dr. Rapp, 03/29/2019, and feeding tube placement with a PEG tube on 03/30/[address] Li, general surgeon. He was planned for carboplatin and paclitaxel but developed neutropenic fever in April 2019 with a peripherally inserted central catheter (PICC) line placement, subsequently removed after antibiotics and a right Hpydff-W-Rcwr placed on 05/09/[address] Lee, interventional radiology. The patient is being admitted today for intravenous fluids status post paclitaxel and carboplatin 250 mL per hour for 24 hours. If creatinine is 0.72 or better, the patient may be discharged home after 24 hours per medical oncologist Dr. Cueva. IMPRESSION: 1. Stage GERALDINE, [id number], p. 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 Ramirez. contact isolation per protocol for active chemo patients. trach care and resume tube feedings per home regimen with poacher wringer operator consult. The patient is to be admitted for observation and intravenous fluids with D5 half normal saline at 250 mL per hour for 24 hours and may be discharged home in the morning, per his medical oncologist, Dr. Cueva. 2. History of alcoholic liver cirrhosis. The patient does not have any acute medical issues pertaining to decompensation, appears to be in compensated state. His last drink was in 2016. 3. 40 pack year history of tobacco abuse with subsequent emphysema noted on CT and two pulmonary nodules. In light of heavy smoking history, the patient may benefit from repeat CT of the chest in 3 to 6 months, monitored by his medical oncologist. The patient currently has no wheezing on examination. If becomes symptomatic, we will have as needed albuterol. 4. Erythrocytosis with secondary polycythemia due to chronic pulmonary disease and tobacco abuse. Currently stable. No acute indication for any treatment. 5. History of neutropenic fever in April 2019, currently afebrile with no new complaints. 6. History of alcohol abuse. Last drink was in 2017. 7. Protein calorie malnutrition. check prealbumin in the morning. Traffic Ii Manager consulted as an outpatient. Continue with feeding tube through the PEG tube. comfort feeding and aspiration precautions 8. Deep vein thrombosis (DVT) prophylaxis with compression stockings. DISPOSITION: Per Dr. Cueva, medical oncologist, the patient may be discharged home on 05/14/2019 if creatinine is the same or better after 24 hours of D5 half normal saline at 250 mL an hour. THe patient needs a full 24 hour course of IV fluids and then will be discharged later in the evening tomorrow on 05/14/2019 if stable. MTDD
[2019-05-13 16:14] VITALS: BP 111/65
[2019-05-13] MEDS: NICOTINE 14 MG/24 HR TRANSDERMAL TD SCH (17:26)
[2019-05-13 18:46] LABS: BLOOD UREA NITROGEN 15 MG/DL (7-18); CALCIUM LEVEL 8.2 MG/DL (8.5-10.1); CARBON DIOXIDE LEVEL 29 MEQ/L (21-32); CHLORIDE LEVEL 111 MEQ/L (98-107); GLOMERULAR FILTRATION RATE > 60.0 (>56); GLUCOSE, FASTING 164 MG/DL (70-100); POTASSIUM SERUM 4.6 MEQ/L (3.5-5.1); PREALBUMIN 21.9 MG/DL (20.0-40.0); SODIUM LEVEL 142 MEQ/L (136-145)
[2019-05-13 22:00] VITALS: BP 112/68
[2019-05-14] MEDS: D5W/0.45% SODIUM CHLORIDE 1,000 ML IV SCH ×3 (00:31→08:37)
[2019-05-14 05:51] LABS: HEMATOCRIT 27.2 % (42.0-52.0); HEMOGLOBIN 9.3 g/dl (13.5-17.5); MEAN CORPUSCULAR HEMOGLOBIN 32.5 pg (27.0-33.0); MEAN CORPUSCULAR HGB CONC 34.2 g/dl (32.0-36.5); MEAN CORPUSCULAR VOLUME 95.1 fl (80.0-96.0); PLATELET COUNT, AUTOMATED 183 10^3/uL (150-450); RED BLOOD COUNT 2.86 10^6/uL (4.30-6.10); WHITE BLOOD COUNT 3.3 10^3/uL (4.0-10.0)
[2019-05-14 06:00] VITALS: BP 112/67
[2019-05-14 06:18] LABS: BLOOD UREA NITROGEN 12 MG/DL (7-18); CALCIUM LEVEL 7.6 MG/DL (8.5-10.1); CARBON DIOXIDE LEVEL 27 MEQ/L (21-32); CHLORIDE LEVEL 111 MEQ/L (98-107); CREATININE FOR GFR 0.64 MG/DL (0.70-1.30); GLOMERULAR FILTRATION RATE > 60.0 (>56); GLUCOSE, FASTING 154 MG/DL (70-100); POTASSIUM SERUM 3.9 MEQ/L (3.5-5.1); SODIUM LEVEL 141 MEQ/L (136-145)
[2019-05-14] MEDS ORDERED: ENOXAPARIN 40 MG/0.4 ML SYRINGE (J1650) SC SCH (09:00)
[2019-05-14] MEDS: NICOTINE 14 MG/24 HR TRANSDERMAL TD SCH (09:24)
--- NOTE | 2019-05-14 13:11 | DS.PDOC ---
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 Aaron Rapp, ENT surgeon, as well as PEG tube placement on 03/30/[address] Li. The patient was subsequently referred to Dr. Cueva for chemotherapy with plans for Paclitaxel and carboplatin with plans for radiation with Dr. Ramirez. After biopsy on 03/29/2019, the patient also underwent tracheostomy on 03/29/2019 and feeding tube placement by general surgeon, Dr. Li on 03/30/2019. The patient was then admitted for neutropenic fever secondary to chemotherapy April 2019, treated with broad spectrum antibiotics via peripherally inserted central catheter (PICC) line placed at that time. on 04/02/2019. PICC line was subsequently discontinued at discharge. right Grmohb-K-Siqk placement was done by IR Dr. Lee on 05/09/2019 and has received paclitaxel and carboplatin / in the [facility]. To decrease risk of nephrotoxicity, his medical oncologist, Dr. Cueva recommended 24hr hydration and admission for observation. The patient is to be started on D5 half normal saline at 250 mL per hour for 24 hours and if the creatinine is 0.72 or better, may be discharged home in the morning with outpatient followup with his medical oncologist. HOSPITAL COURSE: The patient remained on 250 mL of D5 half-normal saline over the evening. As per instructed by medical oncology the patient had repeat labs in the a.m. Creatinine showed to be slightly improved at 0.64. The patient had no signs or symptoms of worsening dehydration. He was discharged home with instructions to follow-up with his outpatient medical oncologist and primary care provider. At the time of discharge the patient denied shortness of breath, chest pain, nausea, vomiting or increased weakness. REVIEW OF SYSTEMS: CONSTITUTIONAL: Denies lack of energy, fever, night sweats EYES: Denies eye drainage, eye pain, visual changes, dry/irritated eye EARS, NOSE, MOUTH, THROAT: Denies difficulty hearing, ringing in ears, mouth sores, loose teeth, sore throat, facial numbness or pain NECK: Denies swollen glands CARDIOVASCULAR: Denies irregular heartbeat, racing heart, chest pains, swelling of feet or legs, pain in legs with walking RESPIRATORY: Denies shortness of breath, night sweats, wheezing, sputum production, oxygen at home, coughing up blood, cough lasting > 1 month GASTROINTESTINAL: Denies abdominal pain, constipation, bloody stool, diarrhea, heartburn, nausea, vomiting GENITOURINARY: Denies painful urination, bloody urine, frequent urination, urgency, leaking urine, impotence MUSCULOSKELETAL: Denies joint pain, muscle pain, leg swelling INTEGUMENTARY: Denies rash, itching, new skin lesion, change in existing skin lesion, hair loss or increase, breast changes. NEUROLOGICAL: Denies headaches, dizziness, difficulty walking, numbness or tingling PSYCHIATRIC: Denies anxiety, recurrent bad thoughts, mood swings, hallucinations PAST MEDICAL HISTORY: 1. Alcoholic liver cirrhosis. 2. Gastroesophageal reflux disease (GERD). 3. Emphysema. 4. Ocular cataract status post right eye excision of cataract. 5. 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 6. Chemotherapy induced neutropenia, neutropenic fever. 7. Recent diagnosis of left squamous cell carcinoma of the tongue and 8. Neutropenic fever in April 2019. 9. Left upper and lower lobe pulmonary nodules detected on CT of the chest on 05/02/2019. PAST SURGICAL HISTORY: 1. Biopsy on 03/29/2019 at the base of the tongue with subsequent diagnosis of squamous cell carcinoma at the left base, right base has adenocarcinoma. 2. Feeding tube placed on 03/30/2019. 3. Right Cdozpi-I-Qcyc placement on 05/09/2019. 4. Ultrasound guided paracentesis for acetic fluid from chronic alcohol liver cirrhosis on 04/27/2017 and February 2017. 5. Right peripherally inserted central catheter (PICC) line in April 2019. 6. Tracheostomy March 29, 2019. 19 teeth were extracted. FAMILY HISTORY: Mother at the age of 45 from aspiration. Father from diabetic complications at the age of 55. SOCIAL HISTORY: History of alcohol abuse with alcohol liver cirrhosis. One pack a day smoking for 40 years, quit smoking, currently on nicotine replacement. The patient's last drink was in 2017. Lives with his , Herminia. Denies any recreational drug use. ALLERGIES: NKDA DISCHARGE MEDICATIONS: Please see below. PHYSICAL EXAMINATION: CONSTITUTIONAL: thin appearing male, no acute distress, resting comfortably, AAO x 3. EYES: PERRLA, EOM intact HENT, MOUTH: Normocephalic, atraumatic, moist mucous membranes, NECK: SUPPLE, no JVD, no lymphadenopathy, no carotid bruit CV: Regular rate and rhythm, S1S2 normal, no murmurs/rubs/gallops CHEST: Port in right upper chest RESPIRATORY: Clear to auscultation bilaterally, no rales/rhonchi/wheezes GI: BS positive in 4 quadrants, soft, nontender, nondistended, no rebound or guarding, no organomegaly : Deferred MUSCULOSKELETAL: emaciated extremities, Normal ROM. No cyanosis, clubbing, sw elling, joint deformity, extremity edema INTEGUMENTARY: Intact, no rashes, no lesions, no erythema NEUROLOGIC: Cranial Nerves II-XII are intact, no focal deficits PSYCHIATRIC: Mood and affect are normal LABORATORY DATA: Please see below IMAGING: PET scan 04/09/2019 showed large hypermetabolic focus in the neck at the level of the blaine bone and base of the tongue. Hypermetabolic uptake along the tract of the tracheostomy, hypermetabolic uptake in the cervical lymph nodes, confluent enlarged nodes on the left. 7 mm hypermetabolic focus in the wall of the sigmoid colon, possibly colonic polyp, no other hypermetabolic foci. Chest CT on 05/02/2019 showed interval development of left upper and left lower lobe pulmonary nodules. For high risk patients with a history of smoking, recommend CT every 3 to 6 months. 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 PLAN: 1. Stage GERALDINE, [id number], p. 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 S/p chemotherapy 05/13/19 and concern for dehydration, has feeding tube. Hospitalizations in the past s/p chemo. Hydration was requested by med onc provider. Improved Cr today. Encourage adequate PO hydration with fluids, food, f/u with credit verifier. F/u with med onc within the next 1-2 weeks and PCP. 2. History of alcoholic liver cirrhosis. Stable. 3. Tobacco abuse. 40 pack year history of tobacco abuse with subsequent emphysema noted on CT and two pulmonary nodules. Consider repeat CT of the chest in 3 to 6 months, monitored by his medical oncologist. 4. Erythrocytosis with secondary polycythemia due to chronic pulmonary disease and tobacco abuse. Currently stable. No acute indication for any treatment. 5. History of alcohol abuse. Last drink was in 2017.No signs of symptoms of alcohol withdrawl 6. Protein calorie malnutrition. Sales [employer] consulted as an outpatient. Continue with feeding tube through the PEG tube. DISPOSITION: Discharge to home in improved condition with instructions to follow up with med onc, PCP within 1-2 weeks. TIME SPENT ON DISCHARGE: 25 mins Vital Signs/I&Os Vital Signs Date Time Temp Pulse Resp B/P (MAP) Pulse Ox O2 Delivery O2 Flow Rate FiO2 05/14/19 06:00 96.9 69 20 112/67 (82) 98 Room Air I&O- Last 24 Hours up to 6 AM 05/14/19 06:00 Intake Total 4481 ml Output Total 4100 ml Balance 381 ml Laboratory Data Labs 24H Laboratory Tests 05/13/19 17:18 05/14/19 05:18 Laboratory Tests 2 05/13/19 17:18: Anion Gap 2L, Glomerular Filtration Rate > 60.0, Calcium Level 8.2L, Prealbumin 21.9 05/14/19 05:18: Anion Gap 3L, Glomerular Filtration Rate > 60.0, Calcium Level 7.6L, Nucleated Red Blood Cells % (auto) 0.0 Discharge Medications Scheduled Lidocaine/Prilocaine (Lidocaine-Prilocaine Cream) 2.5%/2.5% Cream..g., 1 DOSE TOP ASDIRECTED Apply dime size to port area. Do not rub in, cover with saran wrap to protect clothing. Nicotine (Nicotine Patch) 14 Mg/24 Hr Patch.td24, 14 MG TD DAILY, (Reported) Scheduled PRN Ondansetron (Ondansetron Odt) 4 Mg Tab.rapdis, 4 MG PO Q6-8HP PRN for nausea/vomiting Take 4 mg po q 6 hours prn nausea Allergies Coded Allergies: No Known Allergies (Unverified , 05/01/19) Naila Montana MD May 14, 2019 13:02
== END 2019-05-14 11:19 | disposition home or self-care (01) | DRG 641 ==
LOC: M MSPAV 15:47
PROVIDERS: ADMIT General Practice; ATTEND Internal Medicine
DX: E86.0 Dehydration (principal); E46 Unspecified protein-calorie malnutrition; K21.9 Gastro-esophageal reflux disease without esophagitis; J43.9 Emphysema, unspecified; D75.1 Secondary polycythemia; K70.30 Alcoholic cirrhosis of liver without ascites; C02.9 Malignant neoplasm of tongue, unspecified; R91.8 Other nonspecific abnormal finding of lung field; Z93.1 Gastrostomy status; Z93.0 Tracheostomy status; Z87.891 Personal history of nicotine dependence; Z79.899 Other long term (current) drug therapy

== ENCOUNTER 2019-05-22 16:03 | Inpatient (IN) | payer OTHER ==
[~2019-05-22] VITALS: Ht 180.3 cm; Wt 63.1 kg
[2019-05-22] MEDS ORDERED: ACETAMINOPHEN TAB 650MG DOSE (2X325MG) PO ONE (16:30)
[2019-05-22] MEDS ORDERED: NS 1,850 ML in IV 1 EA IV ONE (16:45)
[2019-05-22] MEDS ORDERED: CEFEPIME HCL 2 GM in D5W MINI-BAG PLUS 50 ML IV ONE (16:45)
[2019-05-22 16:54] LABS: HEMATOCRIT 25.9 % (42.0-52.0); HEMOGLOBIN 9.2 g/dl (13.5-17.5); MEAN CORPUSCULAR HEMOGLOBIN 31.9 pg (27.0-33.0); MEAN CORPUSCULAR HGB CONC 35.5 g/dl (32.0-36.5); MEAN CORPUSCULAR VOLUME 89.9 fl (80.0-96.0); PLATELET COUNT, AUTOMATED 100 10^3/uL (150-450); RED BLOOD COUNT 2.88 10^6/uL (4.30-6.10); WHITE BLOOD COUNT 6.2 10^3/uL (4.0-10.0)
[2019-05-22 17:14] LABS: ATYPICAL LYMPH 10 % (0-5); LYMPHOCYTES 26 % (16-44); MONOCYTES 29 % (0-5); NEUTROPHILS 32 % (28-66); PLATELET ESTIMATE DECREASED (NORMAL)
[2019-05-22 17:15] LABS: DOHLE BODIES 1+
[2019-05-22 17:17] LABS: ANISOCYTOSIS 1+; POLYCHROMASIA 1+
[2019-05-22 17:18] LABS: ALT/SGPT 18 U/L (12-78); BILIRUBIN,DIRECT 0.3 MG/DL (0.0-0.2); BILIRUBIN,TOTAL 0.5 MG/DL (0.2-1.0); BLOOD UREA NITROGEN 27 MG/DL (7-18); CALCIUM LEVEL 8.1 MG/DL (8.5-10.1); CARBON DIOXIDE LEVEL 26 MEQ/L (21-32); CHLORIDE LEVEL 100 MEQ/L (98-107); CK-MB VALUE MASS < 1.0 NG/ML (<3.6); CPK CREATINE PHOSPHOKINASE 29 U/L (39-308); CREATININE FOR GFR 1.14 MG/DL (0.70-1.30); GLOMERULAR FILTRATION RATE > 60.0 (>56); GLUCOSE, FASTING 78 MG/DL (70-100); MB/CK RELATIVE INDEX 3.45 (< OR =4); POTASSIUM SERUM 3.8 MEQ/L (3.5-5.1); SODIUM LEVEL 131 MEQ/L (136-145); TOTAL PROTEIN 6.8 GM/DL (6.4-8.2); TROPONIN I < 0.02 NG/ML (< 0.10)
[2019-05-22] MEDS ORDERED: HEPA100I9 IV (18:53)
--- NOTE | 2019-05-22 18:53 | REP ---
HISTORY: Cough and dyspnea. COMPARISON: Multiple, the latest 05/01/2019. The PICC line catheter has been removed. There is a Mediport device entering from the right subclavian region, the tip is in the superior vena cava. The tracheostomy tube is unchanged. The technique utilized in obtaining the radiograph has magnified the cardiac silhouette and accentuated the interstitial markings. There is no change in the lung raman. No acute patchy parenchymal opacities or pleural effusions have developed. The heart is not enlarged. There is no change in the osseous structures. IMPRESSION: Findings as described above. There is no evidence of acute cardiopulmonary disease. Electronically Signed by Kristopher Irvin DO 05/22/2019 07:34 P
[2019-05-22] MEDS ORDERED: VANCOMYCIN HCL 1,000 MG, VIAL MATE ADAPTER 1 EACH in D5W 250 ML IV SCH (20:00)
[2019-05-22] MEDS ORDERED: CEFEPIME HCL 2 GM in D5W MINI-BAG PLUS 50 ML IV SCH (20:00)
[2019-05-22] MEDS ORDERED: EMLA CREAM 5GM (LIDOCAINE/PRILOCAINE) TOP SCH (20:00)
[2019-05-22] MEDS ORDERED: ACETAMINOPHEN TAB 650MG DOSE (2X325MG) PO PRN (20:00)
[2019-05-22] MEDS ORDERED: ONDANSETRON 4MG/2ML VIAL (J2405) IV PRN (20:00)
--- NOTE | 2019-05-22 20:43 | PHACANCOPD ---
PHARMACY VANCOMYCIN DOSING Pt Demographics Demographics Patient Age:59 , Weight:61.500 , Gender: male Adjusted Body Weight Date: 05/22/19, Adjusted Body Weight: [61.5] Kg Events Past 24 Hours Events Past 24 Hours: NO: Dialysis, Diuretic Therapy, Change in CrCl, Fever, Elevation in WBC, Pending Diagnostics, Pending Procedures, Other Vancomycin Vancomycin indication: FEBRILE NEUTROPENIA Vancomycin Target Ranges: 15-20 mcg/ml Vancomycin Load Y/N: Yes Load Dose Date Time Vancomycin Load Dose: 1.5G Date: 05/22/19 Time: 2100 Vancomycin Dose Date: 05/22/19. Current Vancomycin Dose: [1G Q12H @1000] Intermittent Dosing?: No Labs Labs Vital Signs Label Value Date Time Patient Temperature 97.8 degrees F 05/22/19 1815 Item Value Date Time White Blood Count 6.2 10^3/uL 05/22/19 1645 Creatinine 1.14 MG/DL 05/22/19 1645 Micro Microbiology 05/22/19 Blood Culture, Received Pending 05/22/19 Respiratory Virus Panel (PCR) (SHARDA) - Final, Complete 05/22/19 Blood Culture, Received Pending Creatinine Clearance Date:05/22/19. Creatinine Clearance: [61.4ML/MIN]. Assessment and Plan Maintaining Current Dose?: Yes Reason for dose change: No Dose Change Pharmacist Note Pharmacist Note Date: 05/22/19. Pharmacist note:We have followed this patient's vancomycin therapy previously in April 2019. Currently he is admitted for febrile neutropenia. Today he had a fever of 100.4 and then a second of 97.8 degrees after one dose of APAP 650mg. SCr=1.14 mg/dL and CrCl (using IBW)= 61.4mL/min. This yielded a loading dose of 1.5G given in the ED followed by a recommended 1G Q12H per the patient's last admission and previous treatment history. A trough is scheduled to be taken prior to the third dose on 05/22 @ 2099. We will continue to monitor and dose adjust as needed. SUBHA LOCKHART, PHARMACY May 22, 2019 20:43
[2019-05-22] MEDS: NS 1,000 ML IV SCH (20:51)
--- NOTE | 2019-05-22 20:55 | HPEPDOC ---
[facility] Medical History & Physical Date of Admission May 22, 2019 Date of Service: May 22, 2019 Attending Physician: RENE KIRK MD History and Physical CHIEF COMPLAINT: Lightheadedness and fever HISTORY OF PRESENT ILLNESS:. Patient is a 59-year-old male who presented to the [facility] emergency department for a fever as well as lightheadedness. Patient has a diagnosis of squamous cell carcinoma of the tongue, stage Jamari. He is currently being followed by hematology/oncology. Patient has recently completed his second round of induction chemotherapy with Docetaxel, cisplatin and 5-fluorouracil on 05/17/2019. Patient received labs which demonstrated neutropenia with a white blood cell count of 0.5, and, absolute neutrophil count of 144.5. At the time of patient was afebrile. He was given a shot of Neupogen and instructed to go home. Patient states that today he had developed a fever and had called his oncologist with instructions to present to the emergency department. Additionally, the patient states that he has been fairly lightheaded recently and stated that when he was sitting down earlier today, he went to get up and felt lightheaded. He denies any decrease in his oral intake. He denies any shortness of breath or cough. He does admit to some increased secretions in his tracheostomy tube. In the emergency department, the patient was found to have a white blood cell count 6.2. His labs were otherwise within normal range. His lactic acid was 1.5. He was found to be febrile with a temperature 100.4 and hypotensive with a blood pressure of 87\\52. Was essentially vital signs were not performed in the emergency department. The patient was given IV normal saline boluses at 30 mils per kilogram. Additionally, he was given cefepime 2 g. Hospitalist service was consulted and the patient was admitted for further evaluation and management PAST MEDICAL HISTORY: 1. Squamous cell carcinoma of the tongue, stage IV a. 2. Chronic obstructive pulmonary disease. 3. Alcoholic liver cirrhosis with history of ascites. PAST SURGICAL HISTORY: 1. Cataract removal. 2. Biopsy of tongue. 3. Paracentesis. SOCIAL HISTORY: Patient lives at home with his . He is a former smoker. He started smoking at the age of [age] years old and smoked approximately 1 pack per day. He quit in March 2019 shows diagnosis squamous cell carcinoma the tongue. He is a former alcoholic and states he was a "heavy drinker" in his past. He denies any IV or illicit drug use now or ever. FAMILY HISTORY: Patient's mother and father both . His mother in her 50s due to 6-year-old related to alcohol abuse. His father in his 60s due to complications of his diabetes ALLERGIES: Please see below. REVIEW OF SYSTEMS: CONSTITUTIONAL: Admits to fevers and chills. Admits to unintentional weight loss. Denies night sweats. HEENT: Admits to difficulty swallowing solids. Denies any choking. admits to chronic tracheostomy tube. Admits to increasing upper secretions in his tracheostomy tube CARDIOVASCULAR:. Denies chest pain, palpitations or feelings of heart racing. RESPIRATORY:. Denies shortness of breath, cough, wheezing. GASTROINTESTINAL:. Denies any abdominal pain. Denies diarrhea. Admits to constipation. GENITOURINARY:. Denies dysuria, increased frequency. Denies urgency. SKIN:. Denies any rash or lesions. MUSCULOSKELETAL:. Denies any musculoskeletal pain or weakness. NEUROLOGICAL: Denies any changes in gait or speech. PSYCHIATRIC:. Denies depression or anxiety. ENDOCRINE:. Denies heat intolerance or cold intolerance. Denies history of diabetes. HEMATOLOGIC/LYMPHATIC: Denies any history of easy bruising or bleeding. Denies any history of deep vein thrombosis or pulmonary embolism. HOME MEDICATIONS: Please see below. PHYSICAL EXAMINATION: VITAL SIGNS: Temperature 100.4, pulse, 87, respiratory rate, 18, blood pressure 88\\52, pulse oximetry 99 % on room air. GENERAL APPEARANCE: Patient is awake, alert, and oriented, he does not appear in acute distress. He sitting comfortably on the edge of the stretcher. HEENT: Atraumatic, normocephalic. Eyes nonicteric.. Trachea is midline. Patient has a tracheostomy tube in place CARDIOVASCULAR: Normal S1, S2, regular rate and rhythm. No clicks, rubs or murmurs. Strffv-s-Oaxz on right chest wall without surrounding erythema LUNGS:. Clear vesicular breath sounds bilaterally with good respiratory effort. Some bronchial breath sounds present. No wheezes, rhonchi or rales ABDOMEN:. Soft, nondistended, nontender, normoactive bowel sounds throughout. MUSCULOSKELETAL: 5 out of 5 muscle strength testing in upper and lower extremities bilaterally. EXTREMITIES: No edema. Full and equal pulses in bilateral upper and lower extremities. NEUROLOGICAL: No Focal neurological deficits. PSYCHIATRIC: Mood And affect appear appropriate. LABORATORY DATA: See below. IMAGING: HISTORY: Cough and dyspnea. COMPARISON: Multiple, the latest 05/01/2019. The PICC line catheter has been removed. There is a Mediport device entering from the right subclavian region, the tip is in the superior vena cava. The tracheostomy tube is unchanged. The technique utilized in obtaining the radiograph has magnified the cardiac silhouette and accentuated the interstitial markings. There is no change in the lung raman. No acute patchy parenchymal opacities or pleural effusions have developed. The heart is not enlarged. There is no change in the osseous structures. IMPRESSION: Findings as described above. There is no evidence of acute cardiopulmonary disease. Electronically Signed by Kristopher Irvin DO 05/22/2019 07:34 P MICROBIOLOGY: Please see below. ASSESSMENT: Patient is a 59-year-old male with a history significant for squamous cell carcinoma of the tongue, stage Jamari who recently received induction chemotherapy and was subsequently found to be neutropenic. Patient later presented to the [facility] emergency room where he was found to be hypotensive and febrile. . PLAN: 1. Neutropenic fever -Patient recently received his second round of induction chemotherapy on 05/17/2019 -Patient had blood work completed on 05/20/2019 which revealed white blood cell count of 0.5 and a calculated absolute neutrophil count of 144.5. Patient did receive a dose of Neupogen from Hematology / Oncology. His repeat lab work in the emergency department demonstrated a white blood count of 6.2. However, the patient was febrile and hypotensive. Therefore, patient will be considered to be having neutropenic fever. -Patient currently denies any complaints. He states he has some increased secretions in his tracheostomy tube. However, really denies any increased cough. Chest x-ray was performed which demonstrated no acute cardiopulmonary changes. -No lactic acidosis -Will treat patient with empiric antibiotics including cefepime and vancomycin (re: has a port in place) -Blood cultures 2 -Respiratory panel obtained was negative. Will obtain a sputum culture from patient's secretions from his tracheostomy tube -Tylenol when necessary for fever 2. Hypotension, likely secondary to chemotherapy versus adrenal insufficiency, unlikely sepsis -Patient presented hypotensive. He had stated that earlier today he had gone to stand up and he felt lightheaded. In the emergency department, his blood pressure was 87/52. He did receive IV normal saline boluses at 30 ml/kilogram. His blood pressure has stayed fairly soft despite his boluses. However, the patient currently is asymptomatic and denies any lightheadedness. -No lactic acidosis -Hypotension may be due to degree of adrenal insufficiency. Will obtain a cortisol level. Will consider starting patient on prednisone -Orthostatic vital signs every 4 hours until negative -We'll continue IV fluids 100 ml/hr 3. Squamous cell carcinoma of the tongue, stage Jamari -Patient is currently being followed by hematology/oncology outpatient. He has recently completed his second round of induction chemotherapy on 05/17/2019. He has a tracheostomy tube in place and a right chest wall Byvymb-v-Knjt. -Patient states that he is able to tolerate mechanical soft diet. Will continue while inpatient 4. Chronic obstructive pulmonary disease -At this point in time appears to be stable, does not appear to be in acute exacerbation -Patient is not on any inhalers at home 5. History of alcoholic liver cirrhosis -Currently stable. Patient states he had a paracentesis in the past, however, has not had any episodes of ascites since then 6. History tobacco abuse -Will continue patient nicotine patch while inpatient 7. DVT prophylaxis -Lovenox 40 mg subcutaneous. Will hold if platelet count less than 50,000 Vital Signs Vital Signs Date Time Temp Pulse Resp B/P (MAP) Pulse Ox O2 Delivery O2 Flow Rate FiO2 05/22/19 18:18 85 99 05/22/19 18:15 97.8 84/50 (61) 05/22/19 16:40 Room Air 05/22/19 16:04 18 Laboratory Data Labs 24H Laboratory Tests 2 05/22/19 16:45: Neutrophils (%) (Auto) , Nucleated Red Blood Cells % (auto) 0.0, Neutrophils 32, Band Neutrophils 3, Lymphocytes (Manual) 26, Monocytes (Manual) 29H, Atypical Lymphocytes 10H, Polychromasia 1+, Anisocytosis 1+, Dohle Bodies 1+, Platelet Estimate DECREASED, Anion Gap 5L, Glomerular Filtration Rate > 60.0, Lactic Acid Level 1.5, Calcium Level 8.1L, Total Bilirubin 0.5, Direct Bilirubin 0.3H, Aspartate Amino Transf (AST/SGOT) 16, Alanine Aminotransferase (ALT/SGPT) 18, Alkaline Phosphatase 67, Total Creatine Kinase 29L, Creatine Kinase MB < 1.0, Creatine Kinase MB Relative Index 3.45, Troponin I < 0.02, Total Protein 6.8, Albumin 3.0L, Albumin/Globulin Ratio 0.79L, Thyroid Stimulating Hormone (TSH) 5.780H CBC/BMP Laboratory Tests 05/22/19 16:45 Microbiology Microbiology 05/22/19 Blood Culture, Received Pending 05/22/19 Respiratory Virus Panel (PCR) (SHARDA) - Final, Complete 05/22/19 Blood Culture, Received Pending Home Medications Scheduled Lidocaine/Prilocaine (Lidocaine-Prilocaine Cream) 2.5%/2.5% Cream..g., 1 DOSE TOP ASDIRECTED Apply dime size to port area. Do not rub in, cover with saran wrap to protect clothing. Nicotine (Nicotine Patch) 14 Mg/24 Hr Patch.td24, 14 MG TD DAILY Scheduled PRN Ondansetron (Ondansetron Odt) 4 Mg Tab.rapdis, 4 MG PO Q6-8HP PRN for nausea/vomiting Take 4 mg po q 6 hours prn nausea Allergies Coded Allergies: No Known Allergies (Unverified , 05/01/19) A-FIB/CHADSVASC A-FIB History Current/History of A-Fib/PAF?: No GME ATTESTATION GME ATTESTATION My faculty preceptor for this patient encounter was physically present during the encounter and was fully available. All aspects of the patient interview, examination, medical decision making process, and medical care plan development were reviewed and approved by the faculty preceptor. The faculty preceptor is aware and concurs with the plan as stated in the body of this note and will attest to such by his/her cosignature. ATTENDING NOTE I, Rene Kirk, have independently examined this patient and performed my own physical exam, as well as reviewed the documentation and edited where necessary. I have discussed in detail with the resident / student the findings and plan of treatment as documented by the resident / student and edited their note. I agree with their findings and treatment plan and have edited their documentation. I will continue to follow the patient during this hospital stay. SUBHA OROZCO DO May 22, 2019 20:55 RENE KIRK MD May 22, 2019 21:18
[2019-05-22] MEDS ORDERED: VANCOMYCIN HCL 750 MG, VIAL MATE ADAPTER 1 EACH in D5W 250 ML IV ONE ×2 (21:00→22:00)
[2019-05-22 21:14] VITALS: BP 92/52
[2019-05-22 21:20] LABS: CORTISOL BASELINE 7.9 UG/DL (4.3-22.4)
[2019-05-23] VITALS (8 sets, daily range): BP systolic 92–114; BP diastolic 50–63
[2019-05-23] MEDS: CEFEPIME HCL 2 GM in D5W MINI-BAG PLUS 50 ML IV SCH ×2 (04:53→16:21)
[2019-05-23] MEDS: NS 1,000 ML IV SCH ×2 (04:53→13:06)
[2019-05-23 04:58] LABS: HEMATOCRIT 21.7 % (42.0-52.0); HEMOGLOBIN 7.8 g/dl (13.5-17.5); MEAN CORPUSCULAR HEMOGLOBIN 32.2 pg (27.0-33.0); MEAN CORPUSCULAR HGB CONC 35.9 g/dl (32.0-36.5); MEAN CORPUSCULAR VOLUME 89.7 fl (80.0-96.0); RED BLOOD COUNT 2.42 10^6/uL (4.30-6.10); WHITE BLOOD COUNT 7.2 10^3/uL (4.0-10.0)
[2019-05-23 05:25] LABS: PLATELET COUNT, AUTOMATED 82 10^3/uL (150-450)
[2019-05-23 05:37] LABS: BASOPHILS 1 % (0-1); LYMPHOCYTES 16 % (16-44); MONOCYTES 16 % (0-5); MYELOCYTES 1 % (0-0); NEUTROPHILS 65 % (28-66)
[2019-05-23 05:38] LABS: PLATELET ESTIMATE DECREASED (NORMAL); TOXIC GRANULATION 2+
[2019-05-23 05:41] LABS: DOHLE BODIES 1+
[2019-05-23] MEDS: ENOXAPARIN 40 MG/0.4 ML SYRINGE (J1650) SC SCH (08:55)
[2019-05-23] MEDS: NICOTINE 14 MG/24 HR TRANSDERMAL TD SCH (08:55)
--- NOTE | 2019-05-23 08:56 | IPNPDOC ---
Subjective Date Seen The patient was seen on 05/23/19. Subjective Chief Complaint/HPI Seen and examined at bedside, awake and alert, no specific complaints. General: Reports: Normal Appetite; Denies: Chills, Night Sweats, Fatigue, Malaise Constitutional: Denies: Chills, Fever, Night Sweats Eyes: Denies: Pain, Vision change ENT: Denies: Head Aches, Ear Pain, Dysphagia Skin: Denies: Rash, Lesions, Breakdown Pulmonary: Denies: Dyspnea, Cough Cardiovascular: Denies: Chest Pain, Palpitations, Orthopnea, Paroxysmal Noc. Dyspnea, Lt Headedness Gastrointestinal: Denies: Nausea, Vomiting, Abdominal Pain, Diarrhea, Constipation Genitourinary: Denies: Dysuria, Frequency, Incontinence, Retention Hematologic: Denies: Bruising, Bleeding Excessively Musculoskeletal: Denies: Neck Pain, Back Pain, Joint Pain, Muscle Pain, Spasms Neurological: Denies: Weakness, Numbness, Change in speech, Confusion Psych: Reports: Mood Normal; Denies: Depression, Memory Issues Objective Physical Examination General Exam: Positive: Alert, No Acute Distress Eye Exam: Positive: PERRLA, Conjunctiva & lids normal, EOMI; Negative: Sclera icteric ENT Exam: Positive: Atraumatic, Mucous membr. moist/pink, Pharynx Normal Neck Exam: Positive: Supple; Negative: JVD, thyromegaly Chest Exam: Positive: Clear to auscultation, Normal air movement Heart Exam: Positive: Rate Normal, Regular Rhythm, Normal S1, Normal S2; Negative: Murmurs, Rubs Telemetry: Positive: No significant arrhythmia Abdomen Exam: Positive: Normal bowel sounds, Soft; Negative: Tenderness, Hepatospenomegaly Male Exam: Positive: Normal Genital Exam Extremity Exam: Positive: Normal pulses; Negative: Clubbing, Cyanosis, Edema Skin Exam: Positive: Nl turgor and temperature; Negative: Rash, Breakdown Neuro Exam: Positive: Normal Gait, Normal Speech, Cranial Nerves 3-12 NL, Reflexes 2+ Psych Exam: Positive: Mental status NL, Mood NL, Oriented x 3 Assessment /Plan Assessment 1. Neutropenic fever - patient recently received his second round of induction chemotherapy on 05/17/2019. - patient had blood work completed on 05/20/2019 which revealed white blood cell count of 0.5 and a calculated absolute neutrophil count of 144.5. - patient did receive a dose of Neupogen from Hematology / Oncology. His repeat lab work in the emergency department demonstrated a white blood count of 6.2, febrile and hypotensive. - CXR negative, on cefepime and vancomycin. - blood/sputum cultures. - respiratory panel negative. - consult to oncology Dr. Cueva. 2. hypotension - likely secondary to chemotherapy versus adrenal insufficiency, unlikely sepsis. - stable on IVF, asymptomatic, continue to monitor. 3. Squamous cell carcinoma of the tongue, stage Jamari - followed by hematology/oncology outpatient, recently completed his second round of induction chemotherapy on 05/17/2019. - tracheostomy tube in place and a right chest wall [id number]. 4. anemia - monitor for now. 5. Chronic obstructive pulmonary disease - stable, monitor. 6. History of alcoholic liver cirrhosis - patient states he had a paracentesis in the past, however, has not had any episodes of ascites since then. 7. History tobacco abuse - nicotine patch. 8. DVT prophylaxis - lovenox. Plan/VTE VTE Prophylaxis Ordered?: Yes VS, I&O, [facility] Vital Signs/I&O Vital Signs Date Time Temp Pulse Resp B/P (MAP) Pulse Ox O2 Delivery O2 Flow Rate FiO2 05/23/19 08:00 97.8 103 20 97/54 (68) 98 Room Air I&O- Last 24 Hours up to 6 AM 05/23/19 06:00 Intake Total 2980 ml Output Total 0 ml Balance 2980 ml Laboratory Data 24H LABS Laboratory Tests 2 05/22/19 16:45: Neutrophils (%) (Auto) , Nucleated Red Blood Cells % (auto) 0.0, Neutrophils 32, Band Neutrophils 3, Lymphocytes (Manual) 26, Monocytes (Manual) 29H, Atypical Lymphocytes 10H, Polychromasia 1+, Anisocytosis 1+, Dohle Bodies 1+, Platelet Estimate DECREASED, Anion Gap 5L, Glomerular Filtration Rate > 60.0, Lactic Acid Level 1.5, Calcium Level 8.1L, Total Bilirubin 0.5, Direct Bilirubin 0.3H, Aspartate Amino Transf (AST/SGOT) 16, Alanine Aminotransferase (ALT/SGPT) 18, Alkaline Phosphatase 67, Total Creatine Kinase 29L, Creatine Kinase MB < 1.0, Creatine Kinase MB Relative Index 3.45, Troponin I < 0.02, Total Protein 6.8, Albumin 3.0L, Albumin/Globulin Ratio 0.79L, Thyroid Stimulating Hormone (TSH) 5. 780H, Cortisol Baseline 7.9 05/22/19 23:00: Urine Color YELLOW, Urine Appearance HAZY, Urine pH 6.0, Urine Specific [place] 1.012, Urine Protein NEGATIVE, Urine Glucose (UA) NEGATIVE, Urine Ketones NEGATIVE, Urine Blood NEGATIVE, Urine Nitrite NEGATIVE, Urine Bilirubin NEGATIVE, Urine Urobilinogen 0.2, Urine Leukocyte Esterase NEGATIVE, Urine WBC (Auto) 3, Urine RBC (Auto) 1, Urine Hyaline Casts (Auto) 0, Urine Bacteria (Auto) NEGATIVE, Urine Squamous Epithelial Cells 0, Urine Sperm (Auto) 05/23/19 04:07: Neutrophils (%) (Auto) , Nucleated Red Blood Cells % (auto) 0.0, Neutrophils 65, Band Neutrophils 1, Lymphocytes (Manual) 16, Monocytes (Manual) 16H, Dohle Bodies 1+, Platelet Estimate DECREASED, Immature Granulocyte % (Auto) , Basophils (Manual) 1, Myelocytes 1H, Toxic Granulation 2+, Immature Platelet Fraction 4.1 CBC/BMP Laboratory Tests 05/22/19 16:45 05/23/19 04:07 Microbiology Microbiology 05/22/19 Blood Culture, Received Pending 05/22/19 Respiratory Virus Panel (PCR) (SHARDA) - Final, Complete 05/22/19 Blood Culture, Received Pending 05/22/19 Gram Stain, Received Pending 05/22/19 Sputum Culture, Received Pending MEGAN HERNANDEZ MD May 23, 2019 08:56
[2019-05-23] MEDS ORDERED: VANCOMYCIN HCL 1,000 MG, VIAL MATE ADAPTER 1 EACH in D5W 250 ML IV SCH (10:00)
--- NOTE | 2019-05-23 18:48 | CR ---
DATE OF CONSULTATION: 05/23/2019 CONSULTATION REPORT FOR: Dr. Kirk INDICATION FOR CONSULTATION: Squamous cell carcinoma of the tongue, stage GERALDINE, with neutropenic fever. IDENTIFICATION AND CHIEF COMPLAINT: Joe Hinds is a very pleasant 59-year-old gentleman with squamous cell carcinoma of the tongue, stage GERALDINE, admitted via the emergency department with fever while neutropenic, on 05/22/2019. The patient reports, "I am feeling better now." HISTORY OF PRESENT ILLNESS: Joe Hinds is a pleasant 59-year-old gentleman whose history of present illness dates to February 2019, when he noted onset of rapidly worsening dysphagia. He noted that food became stuck in his throat with progressive inability to swallow solids, and he developed a muffled voice. He presented to [facility] on 03/26/2019, at which time he was admitted for evaluation and underwent diagnostic studies. CT scan of the neck on 03/26/2019 showed a left supraglottic mass with thickening of the epiglottis. He was evaluated by Aaron Vicente MD of Otolaryngology, who performed a biopsy on 03/29/2019 (pathology specimen [id number]). 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 Biopsy of the left base of tongue showed invasive, ocqzvrmzqi-[id number] differentiated squamous cell carcinoma. The patient underwent tracheostomy and placement of a feeding tube, and was discharged home. He was initially evaluated by Medical Oncology on 04/16/2019, at which time he reported an approximately 40-pound weight loss, prior to feeding tube placement. He was also evaluated by Alex Ramirez MD of Radiation Oncology, and the patient underwent extraction of multiple teeth on 04/16/2019. Due to the extractions, and the need for the gingiva to heal prior to beginning radiation, radiation therapy could not be initiated immediately. Therefore, he began induction treatment using systemic antineoplastic therapy based on the [id number] clinical trial. Mr. Hinds received cisplatinum 100 mg/m2 on 04/22/2019 together with Taxotere 85 mg/m2, and 5-fluorouracil by infusion over 96 hours. He was admitted to the inpatient hospitalist service for aggressive fluid hydration and antiemetics. He tolerated treatment well and was then discharged home, but returned on 05/02/2019 to the emergency department with fever of 102.5 degrees while neutropenic with total white blood count of 800 per microliter. He was hospitalized and given broad-spectrum antimicrobials but cultures were without growth and he was discharged home on 05/04/2019 after neutrophil count had recovered. The patient underwent placement of MediPort, and began the second cycle of identical chemotherapy on 05/13/2019, receiving cisplatinum 100 mg/m2 on 05/13/2019 along with Taxotere 85 mg/m2 and 5-fluorouracil by 96-hour infusion. He was hospitalized for approximately 24 hours for intravenous hydration during cisplatinum therapy. He tolerated treatment well and received Onpro Neulasta on 05/10/2019. He was evaluated in the medical oncology practice on 05/20/2019, at which time he was well. However, absolute neutrophil count was markedly depressed, at 100 per microliter with total white blood count of only 500 per microliter at that time. Subsequently, the patient developed a fever and lightheadedness on 05/22/2019 and presented to the emergency department. At that time, he was febrile to 100.4 degrees and was hypotensive with systolic blood pressure of 88 mmHg. The patient was hospitalized and given aggressive intravenous fluid hydration along with empiric broad-spectrum antimicrobials including cefepime and vancomycin. Over the last 24 hours, he has been afebrile, and neutrophil count has been recovering. At this time, he reports feeling well, and his ability to swallow solids has improved over the past three weeks. He is still without teeth, however. He is eager to be discharged home at this time. ALLERGIES: The patient has no known medication allergies. CURRENT MEDICATIONS: - vancomycin 1 gram every 12 hours - cefepime 2 grams intravenously every 12 hours - nicotine 14 mg patch to skin daily - Lovenox 40 mg subcutaneously daily - Zofran 4 mg intravenously every six hours as needed for nausea PAST MEDICAL HISTORY: The patient has a past history significant for cirrhotic liver disease associated with heavy alcohol use in the past. This in turn has been complicated by ascites in the past. There is a history of gastroesophageal reflux disease and a history of bronchospastic airway disease consistent with emphysema in the setting of a long history of tobacco use. There is history of ocular cataracts status post excision of a cataract from the right eye. There is history of erythrocytosis in the past attributed to chronic pulmonary disease. As noted, there is history of stage GERALDINE squamous cell carcinoma of the tongue. SOCIAL HISTORY: Tobacco: The patient has a 40 pack-year history of tobacco use but has stopped using tobacco at this time. Alcohol: The patient has a history of heavy alcohol use but has recently been abstinent. He is . Illicit drugs: There is no history of illicit drug use. FAMILY HISTORY: The patient's father at the age of 55 from complications of diabetes mellitus. The patient's mother at the age of 45 reportedly of aspiration. REVIEW OF SYSTEMS: NEUROLOGIC: No history of head trauma, seizure disorder or focal neurologic deficits, but the patient does have difficulty swallowing and speaking, in part due to tracheostomy. RESPIRATORY: History bronchospastic airway disease consistent with emphysema, tracheostomy in place. No cough at present. No chest pain. No hemoptysis. CARDIAC: No history of myocardial infarction. No exertional chest pressure. No palpitations. No orthopnea. The patient did have hypotension on presentation with lightheadedness and these have resolved. GASTROINTESTINAL: Dysphagia for solids, although this is improving over time. Gastrostomy in place. No abdominal pain. No recent nausea, vomiting or diarrhea. History of cirrhotic liver disease. No recent gastrointestinal bleeding. GENITOURINARY: No history of nephrolithiases. No dysuria. No hematuria. MUSCULOSKELETAL: The patient has chronic joint aches. CONSTITUTIONAL: A 40-pound weight loss recently, with weight now improving, mild fatigue at present, fevers present on admission have resolved. No chills or sweats at this time. The remainder of the review of systems was obtained and was negative. PHYSICAL EXAMINATION: The patient is a well-developed, thin, gentleman awake, alert and fully oriented, friendly and cooperative, in no distress. Temperature 97.7, pulse 100, respirations 17, blood pressure 105/57, oxygen saturation 100% on room air. SKIN: Full turgor, anicteric and without rash. HEENT: Bitemporal wasting. Pupils reactive. Extraocular muscles intact. Sclerae anicteric. Oropharynx with no visible lesions. NECK: Supple. The pathologic cervical lymphadenopathy previously present has regressed. There is a left cervical lymph node. A second left submental lymph node previously noted is no longer appreciable. No other cervical, supraclavicular, axillary lymphadenopathy noted. LUNGS: Prolonged expiratory phase without wheezing or rales. CARDIAC: Regular rhythm, point of maximal impulse nondisplaced, S1, S2, with a 1/6 systolic murmur at the apex. No S3, no S4. No rub appreciated. ABDOMEN: Active bowel sounds, soft, nontender without guarding or rebound elicited. Feeding tube in place. The liver percusses to 10 cm. The spleen percusses to 10 cm. No masses appreciated. RECTAL: Examination deferred. EXTREMITIES: Without edema or cyanosis. NEUROLOGIC: Mental status intact. Cranial nerves intact. Motor and sensory grossly intact with the patient speaking through his tracheostomy. LABORATORY DATA: Laboratory studies dated 03/24/2019 include a white blood count 7200 per microliter, hemoglobin 7.8 grams per decaliter, hematocrit 21.7%, platelet count 82,000. BUN 27, creatinine 1.14 mg per decaliter on 05/22/2019. Total bilirubin 0.5 mg per decaliter, albumin 3.0 grams per decaliter. CEA level 05/20/2019 elevated at 3.1 nanograms/mL. IMPRESSION: 1. Neutropenic fever. The patient had fever while neutropenic, but both fever and neutropenia have resolved. The patient's cultures have been without growth from 05/22/2019. In light of resolution of fever and resolution of neutropenia, it appears entirely safe to discontinue intravenous antibiotics at this time. 2. Squamous cell carcinoma of the tongue, stage GERALDINE. The patient has had an excellent clinical response to induction chemotherapy. The case was discussed today with Alex Ramirez MD of radiation oncology, and Dr. Ramirez anticipates simulating the patient and beginning external beam radiation therapy within the next week. Radiation therapy would be accompanied by weekly carboplatin and Taxol at low dose. The patient concurs with this plan. RECOMMENDATIONS: It is recommended that intravenous antimicrobials be discontinued and the patient discharged home when deemed safe from the hospitalist's prospective. Following discharge, the patient is already scheduled for a telemedicine discussion with Dr. Ramirez and subsequent treatment planning and simulation. It is likely he will begin external beam radiation therapy with weekly low-dose carboplatin at area under the curve (AUC) of 2 and weekly Taxotere at 45 mg during radiation therapy on Mondays with radiation therapy Monday through Monday. The patient will return for medical oncology reevaluation as previous scheduled.
[2019-05-23] MEDS ORDERED: VANCOMYCIN HCL 1,000 MG, VIAL MATE ADAPTER 1 EACH in D5W 250 ML IV ONE (23:00)
--- NOTE | 2019-05-23 23:20 | PHACANCOPD ---
PHARMACY VANCOMYCIN DOSING Pt Demographics Demographics Patient Age:59 , Weight:63.000 , Gender: male Adjusted Body Weight Events Past 24 Hours Events Past 24 Hours: NO: Dialysis, Diuretic Therapy, Change in CrCl, Fever, Elevation in WBC, Pending Diagnostics, Pending Procedures, Other Vancomycin Vancomycin indication: FEBRILE NEUTROPENIA Vancomycin Target Ranges: 15-20 mcg/ml Vancomycin Load Y/N: Yes Load Dose Date Time Vancomycin Load Dose: 1.5G Date: 05/22/19 Time: 2100 Vancomycin Dose Date: 05/23/19. Change current Vancomycin Dose to : [1gm IV Q8H starting 05/24/19 @04:00] Intermittent Dosing?: No Labs Labs Laboratory Tests Test 05/23/19 20:48 Vancomycin Level Trough 7.5 UG/ML (10.0-20.0) Laboratory Tests 05/22/19 16:45 05/23/19 04:07 Micro Microbiology 05/22/19 Blood Culture - Preliminary, Resulted No growth after 24 hours . All specim... 05/22/19 Respiratory Virus Panel (PCR) (SHARDA) - Final, Complete 05/22/19 Blood Culture - Preliminary, Resulted No growth after 24 hours . All specim... 05/22/19 Gram Stain - Final, Resulted 05/22/19 Sputum Culture, Resulted Pending Creatinine Clearance Date:05/22/19. Creatinine Clearance: [61.4ML/MIN]. Assessment and Plan Maintaining Current Dose?: No Reason for dose change: Trough too low Pharmacist Note Pharmacist Note Date: 05/23/19. Pharm.D. note: VANCO 1GM IV x1 23:00 FOLLOWED BY VANCO 1GM IV Q8H STARTING AT 4AM 05/24/19. REPEAT VANCO TROUGH 05/24/19 20:00 DOSE JENNIFER [facility] May 23, 2019 23:20
[2019-05-24] VITALS: BP 90/50
[2019-05-24] MEDS: NS 1,000 ML IV SCH (00:03)
[2019-05-24 04:00] VITALS: BP 95/53
[2019-05-24] MEDS ORDERED: VANCOMYCIN HCL 1,000 MG, VIAL MATE ADAPTER 1 EACH in D5W 250 ML IV SCH (04:00)
[2019-05-24 04:36] LABS: HEMATOCRIT 22.2 % (42.0-52.0); HEMOGLOBIN 7.8 g/dl (13.5-17.5); MEAN CORPUSCULAR HEMOGLOBIN 31.8 pg (27.0-33.0); MEAN CORPUSCULAR HGB CONC 35.1 g/dl (32.0-36.5); MEAN CORPUSCULAR VOLUME 90.6 fl (80.0-96.0); PLATELET COUNT, AUTOMATED 101 10^3/uL (150-450); RED BLOOD COUNT 2.45 10^6/uL (4.30-6.10)
[2019-05-24 04:45] LABS: ATYPICAL LYMPH 2 % (0-5); LYMPHOCYTES 12 % (16-44); MONOCYTES 4 % (0-5); MYELOCYTES 2 % (0-0); NEUTROPHILS 76 % (28-66)
[2019-05-24 04:50] LABS: ANISOCYTOSIS 1+; POIKILOCYTOSIS 1+; POLYCHROMASIA 1+
[2019-05-24 04:51] LABS: DOHLE BODIES 1+; PLATELET ESTIMATE DECREASED (NORMAL); TOXIC GRANULATION 1+
[2019-05-24 05:03] LABS: BLOOD UREA NITROGEN 12 MG/DL (7-18); CALCIUM LEVEL 7.7 MG/DL (8.5-10.1); CARBON DIOXIDE LEVEL 25 MEQ/L (21-32); CHLORIDE LEVEL 109 MEQ/L (98-107); CREATININE FOR GFR 0.68 MG/DL (0.70-1.30); GLOMERULAR FILTRATION RATE > 60.0 (>56); GLUCOSE, FASTING 91 MG/DL (70-100); POTASSIUM SERUM 3.2 MEQ/L (3.5-5.1); SODIUM LEVEL 141 MEQ/L (136-145)
[2019-05-24] MEDS: CEFEPIME HCL 2 GM in D5W MINI-BAG PLUS 50 ML IV SCH (05:51)
[2019-05-24 08:00] VITALS: BP 99/59
[2019-05-24] MEDS: ENOXAPARIN 40 MG/0.4 ML SYRINGE (J1650) SC SCH (09:00)
[2019-05-24] MEDS: NICOTINE 14 MG/24 HR TRANSDERMAL TD SCH (09:00)
--- NOTE | 2019-05-24 09:56 | DS.PDOC ---
Discharge Summary General Date of Admission May 22, 2019 at 19:52 Date of Discharge 05/24/19 Discharge Summary PROCEDURES PERFORMED DURING STAY: [None]. ADMITTING DIAGNOSES: 1. neutropenic fever DISCHARGE DIAGNOSES: 1. neutropenic fever COMPLICATIONS/CHIEF COMPLAINT: Febrile Neutropenia,Fever. HISTORY OF PRESENT ILLNESS: Please refer to the admission H&P for detailed HPI. HOSPITAL COURSE: Patient was admitted to the hospital and treated for the following conditions: 1. Neutropenic fever - patient recently received his second round of induction chemotherapy on 05/17/2019. - patient had blood work completed on 05/20/2019 which revealed white blood cell count of 0.5 and a calculated absolute neutrophil count of 144.5. - patient did receive a dose of Neupogen from Hematology / Oncology. His repeat lab work in the emergency department demonstrated a white blood count of 6.2, febrile and hypotensive. - CXR negative, on cefepime and vancomycin. - blood/sputum cultures negative. - respiratory panel negative. - seen by oncology Dr. Cueva, in light of negative cultures and resolution of wbc count, patient has been taken off antibiotics and is cleared for discharge home. - Patient to follow up with oncology Dr. Cueva on discharge as previously scheduled. - Patient has a scheduled telemedicine appointment with radiation oncology Dr. Ramirez for subsequent treatment planning. 2. Squamous cell carcinoma of the tongue, stage Jamari - outpatient follow up with oncology and radiation oncology. DISCHARGE MEDICATIONS: Please see below. ALLERGIES: Please see below. PHYSICAL EXAMINATION ON DISCHARGE: VITAL SIGNS: Please see below. GENERAL: awake, alert, NAD HEENT: NCAT, anicteric sclera, PERRLA/EOMI NECK: supple, no JVD, no masses/thyromegaly CARDIOVASCULAR EXAMINATION: NS1S2, regular, no M/R/G RESPIRATORY EXAMINATION: CTA b/l, no wheezes/rales/rhonchi ABDOMINAL EXAMINATION: NT/ND, positive bowel sounds x 4 EXTREMITIES: no cyanosis, clubbing, edema SKIN: warm, no rashes NEUROLOGICAL EXAMINATION: AAO x 3, no focal motor/sensory deficits PSYCHIATRIC EXAMINATION: calm, cooperative, normal affect LABORATORY DATA: Please see below. PROGNOSIS: good ACTIVITY: [As tolerated]. DIET: regular DISPOSITION: home DISCHARGE INSTRUCTIONS: 1. Please keep schedule follow up appointment with Dr. Cueva. 2. Please keep scheduled telemedicine appointment with Dr. DeBlasio. ITEMS TO FOLLOWUP ON ON OUTPATIENT: 1. none DISCHARGE CONDITION: [Stable]. TIME SPENT ON DISCHARGE: Greater than [30] minutes. Vital Signs/I&Os Vital Signs Date Time Temp Pulse Resp B/P (MAP) Pulse Ox O2 Delivery O2 Flow Rate FiO2 05/24/19 08:00 97.9 92 16 99/59 (72) 100 Room Air I&O- Last 24 Hours up to 6 AM 05/24/19 06:00 Intake Total 3140 ml Output Total 1600 ml Balance 1540 ml Laboratory Data Labs 24H Laboratory Tests 2 05/23/19 20:48: Vancomycin Level Trough 7.5L 05/24/19 04:15: Immature Granulocyte % (Auto) , Neutrophils (%) (Auto) , Nucleated Red Blood Cells % (auto) 0.0, Neutrophils 76H, Band Neutrophils 4, Lymphocytes (Manual) 12L, Monocytes (Manual) 4, Myelocytes 2H, Atypical Lymphocytes 2, Polychromasia 1+, Poikilocytosis 1+, Anisocytosis 1+, Toxic Granulation 1+, Dohle Bodies 1+, Platelet Estimate DECREASED, Anion Gap 7L, Glomerular Filtration Rate > 60.0, Calcium Level 7.7L CBC/BMP Laboratory Tests 05/24/19 04:15 Microbiology Microbiology 05/22/19 Blood Culture - Preliminary, Resulted No growth after 24 hours . All specim... 05/22/19 Respiratory Virus Panel (PCR) (SHARDA) - Final, Complete 05/22/19 Blood Culture - Preliminary, Resulted No growth after 24 hours . All specim... 05/22/19 Gram Stain - Final, Resulted 05/22/19 Sputum Culture, Resulted Pending Discharge Medications Scheduled Lidocaine/Prilocaine (Lidocaine-Prilocaine Cream) 2.5%/2.5% Cream..g., 1 DOSE TOP ASDIRECTED Apply dime size to port area. Do not rub in, cover with saran wrap to protect clothing. Nicotine (Nicotine Patch) 14 Mg/24 Hr Patch.td24, 14 MG TD DAILY, (Reported) Scheduled PRN Ondansetron (Ondansetron Odt) 4 Mg Tab.rapdis, 4 MG PO Q6-8HP PRN for nausea/vomiting Take 4 mg po q 6 hours prn nausea Allergies Coded Allergies: No Known Allergies (Unverified , 05/01/19) MEGAN HERNANDEZ MD May 24, 2019 09:56
== END 2019-05-24 12:02 | disposition home or self-care (01) | DRG 810 ==
LOC: M ED 16:03 → M ED INP 19:52 → ENRESERVTM 20:36 → ENRESERVDT 20:36 → M PCU 21:14
PROVIDERS: ADMIT Internal Medicine; ATTEND Internal Medicine
DX: D70.9 Neutropenia, unspecified (principal); C01 Malignant neoplasm of base of tongue; J44.9 Chronic obstructive pulmonary disease, unspecified; K70.30 Alcoholic cirrhosis of liver without ascites; I95.2 Hypotension due to drugs; F10.21 Alcohol dependence, in remission; K21.9 Gastro-esophageal reflux disease without esophagitis; Z95.828 Presence of other vascular implants and grafts; Z79.899 Other long term (current) drug therapy; T45.1X5A Adverse effect of antineoplastic and immunosuppressive drugs, initial encounter; Z93.0 Tracheostomy status; Z87.891 Personal history of nicotine dependence; Z93.1 Gastrostomy status; Z98.41 Cataract extraction status, right eye

== ENCOUNTER → 2019-05-28 | Outpatient (CLI) | payer OTHER ==
--- NOTE | 2019-05-28 09:59 | RADONC ---
This is a telemedicine visit. The patient was informed of the risks including security breech, technological failure, inability to perform a comprehensive physical exam which could delay or prevent an accurate diagnosis, and potential complications from treatment decisions rendered over a telemedicine platform. The patient understands and consented to the use of telehealth services by phone only. RADIATION ONCOLOGY PROGRESS NOTE DATE: CHART NUMBER: [id number] DIAGNOSIS: Base of tongue cancer. Stage: GERALDINE, T4, N2c, M0, p16 negative. ECOG PERFORMANCE STATUS: 1 Mr. 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 Since that time, the patient has had two cycles of neoadjuvant chemotherapy with his medical oncologist Dr. Trae Cueva MD. The patient's last chemotherapy was May 12, and he is now referred back to us for discussion and initiation of definitive external beam radiation therapy with IMRT/IGRT combined with radiation sensitizing chemotherapy. REVIEW OF SYSTEMS: The patient's review of systems is basically unchanged. He reports that he tolerated chemotherapy well. This was a telephone discussion as per COVID-19 precautions. MEDICAL NECESSITY: IMRT/IGRT is clinically indicated for the highly conformal dose planning required. The target volume is in close proximity to critical structures, such as the normal brain, brainstem, eyes, optic nerves, spinal cord, parotid glands, and mandible. The volume of interest must be covered with narrow margins to adequately protect immediately adjacent structures. The plan requires interpretation of complex testing such as CT localization. As noted above, special planning (IMRT) and localizing (IGRT) is required and essential to maximally protect sensitive normal tissue structures which cannot be accomplished using conventional 3-dimensional planning. ASSESSMENT: I am scheduling the patient for simulation and initiation of treatment planning. We will coordinate his care with medical oncology. Time Spent 30 minutes cc: MD Trae Ramírez MD [facility]
== END ==
LOC: M ONCR 08:55
PROVIDERS: ATTEND Radiology Radiation Oncology
DX: C01 Malignant neoplasm of base of tongue (principal); Z92.21 Personal history of antineoplastic chemotherapy

== ENCOUNTER → 2019-06-11 | Outpatient (POV) | payer OTHER ==
[~2019-06-11] MED LIST changes: +KEFL500C17 PO
--- NOTE | 2019-06-12 09:50 | IRPN ---
[facility] IR Progress Note IR Progress Note DATE: Jun 11, 2019 Tele follow up FOLLOW-UP: status post port placement, patient doing well. No pain, fever or discomfort. Port being used without issues. ON EXAMINATION: No video conference available on patient side, IMPRESSION: Doing well status post port placement. No further follow up needed unless scheduled by patient and or referring provider. Thank you for this referral Allergies Coded Allergies: No Known Allergies (Unverified , 05/01/19) ALEJANDRA PERALES MD Jun 12, 2019 09:50
== END ==
LOC: M IRPOV 13:47
PROVIDERS: ATTEND Radiology Diagnostic Radiology
DX: Z45.2 Encounter for adjustment and management of vascular access device (principal)

== ENCOUNTER → 2019-06-20 | Outpatient (RCR) | payer OTHER ==
--- NOTE | 2019-06-03 11:35 | RADONC ---
RADIATION ONCOLOGY SIMULATION NOTE DATE: 06/03/2019 CHART #: [id number] Mr. Hinds was taken to the CT scan for CT simulation of his head and neck field. CT was accomplished without difficulty or discomfort. Radiation treatment planning is underway and radiation treatments will begin subsequently. An immobilization device was created including a mask which will be used throughout the course of treatment. It was created without difficulty or discomfort. I was physically present throughout the course of CT simulation.
--- NOTE | 2019-06-18 08:42 | RADONC ---
RADIATION ONCOLOGY PROGRESS NOTE DATE: 06/17/2019 CHART NUMBER: [id number] PROGRESS NOTE: Mr. Hinds is presently at a dose of 1000 cGy to his base of tongue and is tolerating treatments quite well at this point with no complaints related to his radiation therapy. He is having no new pain. His review of systems continues to be positive for his tracheostomy and the problems thereof. On physical exam, there is no evidence of radiation change present over the skin of the oral cavity. Radiation is well tolerated and will continue as scheduled.
== END ==
LOC: M ONCR 06-03 10:32
PROVIDERS: ATTEND Radiology Radiation Oncology
DX: C01 Malignant neoplasm of base of tongue (principal)

== ENCOUNTER 2019-07-19 11:38 | Outpatient (RCR) | payer OTHER ==
--- NOTE | 2019-06-27 08:48 | RADONC ---
RADIATION ONCOLOGY PROGRESS NOTE DATE: 06/24/2019 CHART NUMBER: [id number] PROGRESS NOTE: Mr. Hinds is presently at a dose of 2000 cGy to his base of tongue and overall is tolerating his treatments fairly well. REVIEW OF SYSTEMS: He is complaining of some discomfort of the throat. The patient's review of systems is otherwise noncontributory. Denies nausea, vomiting, fevers, chills, night sweats, diplopia, headaches, anxiety or depression, anorexia, weight loss, visual disturbances, chest pain, urinary or bowel difficulties, bone pain, or neurological problems. PHYSICAL EXAMINATION: The patient's weight today is stable at 145.6 pounds. His skin is in good condition with no evidence of moist or dry desquamation. His oral cavity shows some mild mucositis. The remainder of his physical exam remains unchanged. Mr. Hinds is tolerating treatments quite well and radiation will continue as scheduled.
--- NOTE | 2019-07-02 13:08 | RADONC ---
RADIATION ONCOLOGY PROGRESS NOTE DATE: 07/01/2019 CHART NUMBER: [id number] PROGRESS NOTE: Mr. Hinds is presently at a dose of 3000 cGy to his base of tongue and is tolerating treatments quite well at this point with no significant difficulties related to his radiation therapy. He does have some discomfort upon swallowing but he is continuing to have oral intake. REVIEW OF SYSTEMS: The patient's review of systems is positive for some discomfort and difficulty with swallowing, but is otherwise noncontributory. Denies nausea, vomiting, fevers, chills, night sweats, diplopia, headaches, anxiety or depression, anorexia, weight loss, visual disturbances, chest pain, urinary or bowel difficulties, bone pain, or neurological problems. PHYSICAL EXAMINATION: The patient's weight today is down 3 pounds to 142.4 pounds. His skin is in good condition with some erythema present but no evidence of moist or dry desquamation. The review of oral cavity shows some mild mucositis. The remainder of his physical exam remains unchanged. Mr. Hinds is tolerating treatments quite well and radiation will continue as scheduled.
[~2019-07-19 11:38] MED LIST changes: +PERC5TAB12 PO
== END 2019-07-21 ==
LOC: M ONCR 11:38
PROVIDERS: ATTEND Radiology Radiation Oncology
DX: C01 Malignant neoplasm of base of tongue (principal)

== ENCOUNTER 2019-07-30 11:38 | Outpatient (RCR) | payer OTHER ==
--- NOTE | 2019-08-02 00:18 | RADONC ---
RADIATION ONCOLOGY PROGRESS NOTE DATE: 07/29/2019 CHART NUMBER: [id number] Mr. Hinds is presently at a dose of 6800 cGy to his base of tongue and is tolerating treatments quite well at this point with no new complaints related to his radiation therapy. He continues to have some ear discomfort and difficulty swallowing. He is weak and cachectic. The patient is using hydrocodone to relieve his discomfort. His weight today is down 1-1/2 pounds to 129.6 pounds. This is down basically just 1 pound in the last 2 weeks. The remainder of his physical exam remains unchanged. The patient is scheduled for completion of radiation tomorrow. He will be seeing Dr. Rapp within the next few weeks, and we will be seeing him again in followup in 1 month as well. He will continue his management and follow up with his medical oncologist and is scheduled for a transfusion.
--- NOTE | 2019-08-02 23:17 | RADONC ---
RADIATION ONCOLOGY TREATMENT SUMMARY DATE: 07/30/2019 CHART NUMBER: [id number] DIAGNOSIS: Base of tongue cancer. STAGE: GERALDINE, T4a, N2c, M0, P16 negative. ECOG PERFORMANCE STATUS: 1. TREATMENT SUMMARY: Mr. 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 We treated the patient to his base of tongue and involved lymph nodes for a dose of 7000 cGy delivered in 35 fractions of 200 cGy each over 48 elapsed days from 06/11/2019 through 07/30/2019. The patient's primary site was treated on a linear accelerator utilizing A6 MV photon beam via IMRT/IGRT. The patient's noninvolved lymph nodes were treated to a total dose of 5000 cGy delivered in 25 fractions of 200 cGy each over 35 elapsed days from 06/11/2019 through 07/16/2019. Mr. Hinds tolerated his treatments fairly well and was able complete therapy as prescribed. I have scheduled the patient to see me again in 1 month for further followup. He will also continue to be followed by his other physicians as well. cc: MD Diana Ramírez MD
[2019-08-05] MEDS ORDERED: OXYC1TAB23 PO (08:27)
== END 2019-08-20 ==
LOC: M ONCR 11:38
PROVIDERS: ATTEND Radiology Radiation Oncology
DX: C01 Malignant neoplasm of base of tongue (principal)

== ENCOUNTER → 2019-08-20 | Outpatient (CLI) | payer OTHER ==
[~2019-08-20] MED LIST changes: +OXYC1TAB23 PO
--- NOTE | 2019-08-20 11:40 | REP ---
PET/CT: HISTORY: Restaging carcinoma of the tongue. 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 Chemotherapy and radiation therapy. COMPARISONS: Comparison PET-CT study April 09, 2019. TECHNIQUE: 49 minutes following the intravenous injection of a 9.17 mCi dose of F-18 FDG, three-dimensional PET scintigraphy is acquired from the skull base to the proximal thighs. Triplanar noncontrast CT scanning is acquired through the same anatomic range for attenuation correction, and image registration with scan parameters optimized to minimize radiation exposure to the patient. PET scintigraphy and CT datasets were fused and displayed on a workstation with multiplanar and projection display capability. PET/CT FINDINGS: In the head and neck soft tissues, there is normal variant skeletal muscle uptake in the soft palate and parapharyngeal regions bilaterally. The tongue base mass and associated hypermetabolic uptake are resolved. There is normal uptake in the arytenoid cartilages bilaterally. The previously noted area of hypermetabolic uptake surrounding the tracheostomy tube is improved. Maximum standard uptake value here today is 7.27, previously 15.22. The previously noted bilateral anterior cervical lymph nodes have resolved. No abnormal kelly uptake is seen. There is mild diffuse metabolic activity in the salivary glands post radiation. No suspicious head and neck uptake is seen today. No abnormal hilar or mediastinal hypermetabolic uptake is appreciated. No abnormal pulmonary parenchymal hypermetabolic uptake is seen. In the abdomen and pelvis, normal hepatic, splenic, gastrointestinal, and genitourinary FDG accumulation is seen. Cholelithiasis is noted. No abnormal abdominal or pelvic hypermetabolic uptake is seen. No abnormal skeletal hypermetabolic uptake is appreciated. Marrow uptake is suppresses in the cervical spine post radiation as expected. IMPRESSION: Previous sites of abnormal head and neck uptake have resolved. Much improved PET scintigraphy. No new focus of hypermetabolic uptake is noted. Electronically Signed by Naga Alvarez MD 08/20/2019 03:54 P
== END ==
LOC: M PLARAD 08:31
PROVIDERS: ATTEND Internal Medicine Hematology
DX: C02.9 Malignant neoplasm of tongue, unspecified (principal)
CPT/HCPCS: 78815; A9552

== ENCOUNTER → 2019-09-08 | Outpatient (CLI) | payer OTHER ==
[~2019-09-08] MED LIST changes: +JEVILIQ7 GT; +MUPI30CR TOP
== END ==
LOC: M LABSMTC 11:37
PROVIDERS: ATTEND Anesthesiology
DX: Z03.818 Encounter for observation for suspected exposure to other biological agents ruled out (principal); Z11.59 Encounter for screening for other viral diseases

== ENCOUNTER 2019-09-26 14:38 | Emergency (ER) | payer OTHER ==
[~2019-09-26 14:38] MED LIST changes: -MUPI30CR TOP
[2019-09-26] MEDS ORDERED: ISOVUE-370 76% 100ML VIAL ONE (16:24)
[2019-09-26] MEDS ORDERED: UNASYN 3 GM VIAL ONE (17:28)
[2019-09-26] MEDS ORDERED: VANCOMYCIN 1000MG/20ML VIAL ONE (18:02)
[2019-10-24 13:41] LABS: BASO % 0.5 % (0.0-1.0); EOS # 0.1 10^3/uL (0.0-0.5); EOS % 2.8 % (0.0-3.0); HEMATOCRIT 32.1 % (42.0-52.0); HEMOGLOBIN 11.2 g/dl (13.5-17.5); LYMPH # 0.9 10^3/uL (1.5-5.0); LYMPH % 20.1 % (24.0-44.0); MEAN CORPUSCULAR HEMOGLOBIN 35.6 pg (27.0-33.0); MEAN CORPUSCULAR HGB CONC 34.9 g/dl (32.0-36.5); MEAN CORPUSCULAR VOLUME 101.9 fl (80.0-96.0); MONO # 0.7 10^3/uL (0.0-0.8); NEUTROPHILS # 2.7 10^3/uL (1.5-8.5); NEUTROPHILS % 61.4 % (36.0-66.0); PLATELET COUNT, AUTOMATED 197 10^3/uL (150-450); RED BLOOD COUNT 3.15 10^6/uL (4.30-6.10); WHITE BLOOD COUNT 4.3 10^3/uL (4.0-10.0)
[2019-11-10 17:39] LABS: ALBUMIN 3.6 GM/DL (3.2-5.2); ALT/SGPT 13 U/L (12-78); BILIRUBIN,TOTAL 0.5 MG/DL (0.2-1.0); BLOOD UREA NITROGEN 9 MG/DL (7-18); CALCIUM LEVEL 8.9 MG/DL (8.5-10.1); CARBON DIOXIDE LEVEL 31 MEQ/L (21-32); CHLORIDE LEVEL 102 MEQ/L (98-107); CREATININE FOR GFR 0.75 MG/DL (0.70-1.30); FREE T3 2.9 PG/ML (2.2-4.0); GLOMERULAR FILTRATION RATE > 60.0 (>56); GLUCOSE, FASTING 83 MG/DL (70-100); POTASSIUM SERUM 3.8 MEQ/L (3.5-5.1); SODIUM LEVEL 137 MEQ/L (136-145); TOTAL PROTEIN 7.9 GM/DL (6.4-8.2)
[2020-01-02] MEDS ORDERED: MUPI30CR TOP (09:41)
== END 2019-09-26 19:44 | disposition home or self-care (01) ==
LOC: M ED 14:38
DX: L03.221 Cellulitis of neck (principal); R91.1 Solitary pulmonary nodule; C15.9 Malignant neoplasm of esophagus, unspecified; Z93.0 Tracheostomy status; Z79.2 Long term (current) use of antibiotics
CPT/HCPCS: 70491; 71250; 80053; 83605; 84439; 84443; 84481; 85025; 87040; 96361; 96374; 99283; J3370; Q9967

== ENCOUNTER → 2019-09-30 | Outpatient (REF) | payer OTHER ==
[~2019-09-30] MED LIST changes: +MUPI30CR TOP
== END ==
LOC: M LAB REF 08:15
PROVIDERS: ATTEND Otolaryngology
DX: Z93.0 Tracheostomy status (principal)

== ENCOUNTER → 2019-10-15 | Outpatient (REF) | payer OTHER ==
[2019-10-15 19:51] LABS: BLOOD UREA NITROGEN 11 MG/DL (7-18); CARBON DIOXIDE LEVEL 30 MEQ/L (21-32); CHLORIDE LEVEL 104 MEQ/L (98-107); CREATININE FOR GFR 0.91 MG/DL (0.70-1.30); GLOMERULAR FILTRATION RATE > 60.0 (>56); POTASSIUM SERUM 4.1 MEQ/L (3.5-5.1); SODIUM LEVEL 139 MEQ/L (136-145)
== END ==
LOC: M LAB REF 17:47 → M LABDRWAD 17:47
PROVIDERS: ATTEND Otolaryngology
DX: L03.221 Cellulitis of neck (principal); C01 Malignant neoplasm of base of tongue; Z93.0 Tracheostomy status

== ENCOUNTER → 2019-11-06 | Outpatient (CLI) | payer OTHER ==
--- NOTE | 2019-11-21 13:24 | REP ---
CHEST X-RAY: 11/06/19 CLINICAL: Mild intermittent asthma. COMPARISON: 05/01/19. TECHNIQUE: PA and lateral. FINDINGS: The mediastinum and cardiac silhouette are stable. [id number] identified with tip identified in THE SVC/right atrium. Tracheostomy overlies the airway. The lung raman demonstrated coarsened markings consistent with the given history of asthma. No focal consolidation, effusion or pneumothorax. Skeletal structures are intact. IMPRESSION: 1. Chronic changes related to asthma. 2. No focal consolidation. MTDD
== END ==
LOC: M RAD 08:17
PROVIDERS: ATTEND Physician Assistant
DX: J45.30 Mild persistent asthma, uncomplicated (principal)

== ENCOUNTER → 2019-11-20 | Outpatient (CLI) | payer OTHER ==
[~2019-11-20] MED LIST changes: +ISOVUE-370 76% 100ML VIAL As Ordered ONE
--- NOTE | 2019-11-20 13:15 | REPVR ---
PROCEDURE INFORMATION: Exam: CT Neck With Contrast Exam date and time: 11/20/2019 12:42 PM Age: 59 years old Clinical indication: Condition or disease; Cancer; Throat; Prior surgery; Surgery date: 6+ months; Additional info: Head/neck CA f/u TECHNIQUE: Imaging protocol: Computed tomography images of the neck with intravenous contrast. Radiation optimization: All CT scans at this facility use at least one of these dose optimization techniques: automated exposure control; mA and/or kV adjustment per patient size (includes targeted exams where dose is matched to clinical indication); or iterative reconstruction. Contrast material: ISOVUE 370; Contrast volume: 100 ml; Contrast route: INTRAVENOUS (IV); COMPARISON: CT Neck with contrast 09/26/2019 5:00 PM FINDINGS: Paranasal sinuses: There is a small air-fluid level within the left maxillary sinus. Nasopharynx: Unremarkable. Oropharynx: Unremarkable. No significant tonsillar enlargement. Hypopharynx: Unremarkable. Larynx: There is diffuse thickening of the epiglottis, aryepiglottic folds and false cords, similar as compared to preceding examination. This may reflect treatment related changes. Retropharyngeal space: Unremarkable. Submandibular/Parotid glands: Normal. Glands are normal in size. Thyroid: Normal. No enlarged or calcified nodules. Lymph nodes: Unremarkable. No lymphadenopathy. Trachea: There is an indwelling tracheostomy tube. Lungs: Unremarkable as visualized. Bones/joints: No acute fracture. Soft tissues: There is increased induration within the subcutaneous fat of the anterior face and neck, potentially post treatment change. IMPRESSION: Diffuse edema of the epiglottis, aryepiglottic folds and false cords, presumably reflecting post treatment/radiation changes. No new or progressive abnormality as compared to the preceding examination. Electronically signed by: Ceci Sapp On 11/20/2019 13:15:17 PM
--- NOTE | 2019-11-26 13:52 | REP ---
CT CHEST WITH INTRAVENOUS (IV) CONTRAST HISTORY: Post treatment evaluation. Head and neck cancer. COMPARISON: CT chest study from 09/26/2019. CT CONTRAST DOSE: 100 mL of intravenous Isovue-[address] FINDINGS: Preliminary digital greens tier radiograph shows an Infusaport catheter and a tracheostomy tube. The tracheostomy tube is seen on axial CT images to be in good position. Right-sided internal jugular (IJ) Infusaport catheter is seen terminating in the superior vena cava. There is good opacification of the pulmonary arterial tree and the thoracic aorta and its branches. No vascular abnormality is appreciated. No pleural or pericardial effusion is seen. There is no evidence of supraclavicular or axillary lymphadenopathy. There is a granulomatous calcification in the left lower lobe inferolaterally and another in the right lower lobe posteromedially unchanged. There is a somewhat angular partly solid 6-mm nodule in the left lung apex, which is unchanged from the comparison study 09/26/2019. There is some pleural parenchymal fibronodular changes higher up in the apex also unchanged. No new pulmonary nodule is appreciated. There is a somewhat spiculated nodule in the superior segment of the left lower lobe 7 mm in diameter, which is unchanged from the comparison study. This is displayed on Page 43 of 103 in Series 304 of todays study. Bone window settings show no bony destructive lesion. IMPRESSION: Stable nodular densities in the left upper lobe and superior segment of the left lower lobe unchanged from the 09/26/2019 study. No new pulmonary nodule is appreciated. Granulomatous calcifications are again seen. Tracheostomy and right-sided Infusaport catheter is noted. The gastrostomy feeding tube is also noted. Cholelithiasis is seen. There are small bilateral upper pole renal cysts. MTDD
== END ==
LOC: M RAD 12:24
PROVIDERS: ATTEND Internal Medicine Hematology & Oncology
DX: C76.0 Malignant neoplasm of head, face and neck (principal); J38.4 Edema of larynx
CPT/HCPCS: 70491; 71260; Q9967

== ENCOUNTER → 2019-11-26 | Outpatient (CLI) | payer OTHER ==
[~2019-11-26] MED LIST changes: -ISOVUE-370 76% 100ML VIAL As Ordered ONE; -MUPI30CR TOP
--- NOTE | 2019-12-02 10:13 | REP ---
PET CT HISTORY: Restaging squamous carcinoma base of tongue. COMPARISON: PET CT 08/20/2019 and 04/09/2019. TECHNIQUE: 46 minutes following the intravenous injection of an 8.2 mCi dose of F18 fluorodeoxyglucose (FDG), three-dimensional PET CT imaging is acquired from the skull base to the proximal thighs in the usual fashion. PET CT FINDINGS: There is normal uptake at the level of the arytenoid cartilages and at the tracheostomy tube site without evidence of mass effect. Head and neck soft tissues are otherwise unremarkable. No abnormal head and neck uptake is appreciated. No abnormal hypermetabolic kelly uptake is seen in the hilar regions or mediastinum. However, there is hypermetabolic uptake in a new left lower lobe pulmonary nodule with ill-defined margins particularly ground-glass opacity 13 mm in diameter. This is not the 7-mm nodule identified on the 11/20/2019 CT study in the left lower lobe. This nodule is seen today, but is not hypermetabolic. The hypermetabolic uptake is in a new ill-defined nodular opacity a little lower down in the left lower lobe superior segment. Maximum standard uptake value in this nodule is 3.66. In addition there is visible, but nonhypermetabolic uptake in a ground-glass opacity in the left upper lobe at the hilar level, which is also a new finding on CT from the 11/20/2019. These changes having arisen within approximately a week may well be inflammatory. The nodules, which were identified on 11/20/2019, show no visible FDG accumulation. No other abnormal hypermetabolic uptake is seen in the chest. No abnormal uptake is seen in the abdomen or pelvis. Vascular calcification, cholelithiasis, and a gastrostomy tube are incidental findings. IMPRESSION: There are two areas of new metabolic activity in the lung, one in the left lower lobe is mildly hypermetabolic and the other is not hypermetabolic. These are new CT findings compared with the CT study of the chest one week ago and therefore, most likely are inflammatory. Otherwise, no hypermetabolic uptake seen. MTDD
== END ==
LOC: M PLARAD 08:42
PROVIDERS: ATTEND Internal Medicine Hematology & Oncology
DX: C01 Malignant neoplasm of base of tongue (principal); R91.8 Other nonspecific abnormal finding of lung field
CPT/HCPCS: 78815; A9552

== ENCOUNTER → 2020-01-06 | Outpatient (CLI) | payer OTHER, MEDICARE ==
[~2020-01-06] MED LIST changes: +MUPI30CR TOP
--- NOTE | 2020-01-06 08:24 | REP ---
INDICATION: CIRRHOSIS COMPARISON: 02/05/2019 TECHNIQUE: Real time christensen scale ultrasound examination using curved array transducer. FINDINGS: Liver is normal in contour, size, and echogenicity without focal hepatic lesion identified. Gallbladder demonstrates presumed chronic wall thickening with multiple gallstones. No pericholecystic fluid or biliary ductal dilatation is appreciated. The common bile duct measures 3 mm diameter. The pancreas is incompletely evaluated due to interposed bowel gas but visualized portions appear normal. The right kidney is normal in reniform shape and measures 10.4 x 4.4 x 6.1 cm. Few nonobstructing intrarenal calculi cannot be excluded. No hydronephrosis, obvious cystic or renal mass lesion appreciated. No ascites in the visualized right upper quadrant. IMPRESSION: 1. Relatively normal appearance of the liver. 2. Cholelithiasis. 3. Cannot exclude small nonobstructing nephroliths. <Electronically signed by Aneudy Mott > 01/06/20 [id number]
== END ==
LOC: M RAD 07:06
PROVIDERS: ATTEND Internal Medicine Gastroenterology
DX: K70.30 Alcoholic cirrhosis of liver without ascites (principal); K80.20 Calculus of gallbladder without cholecystitis without obstruction

== ENCOUNTER → 2020-01-06 | Outpatient (CLI) | payer OTHER, MEDICARE ==
--- NOTE | 2020-01-06 08:18 | REP ---
INDICATION: ABNORMAL FINDING OF LUNG FIELD PT HAS US 1ST COMPARISON: 11/20/2019, 09/26/2019, 10/10/2018 TECHNIQUE: Axial noncontrast images from the thoracic inlet to the upper abdomen with coronal and sagittal reformations. This CT examination was performed using the following dose reduction techniques: Automated exposure control, adjustment of mA and/or kv according to the patient's size, and use of iterative reconstruction technique. FINDINGS: Small areas of presumed chronic parenchymal scarring in the bilateral apices (left greater than right) along with bibasilar calcified granulomata remains stable. The areas of hypermetabolic activity on recent PET-CT dated 11/26/2019 are not identifiable and likely represented transient areas of inflammatory change. Two new small 3 mm non solid densities are identified in the right upper lobe (images 26-29) and are nonspecific in appearance but may represent transient inflammatory changes or atelectasis. No further areas of consolidation, suspicious nodule or mass lesion. No pleural effusion. No pneumothorax. Tracheobronchial tree is patent. Tracheostomy identified in satisfactory position. No obvious adenopathy noted. Mediastinum demonstrates stable appearance of the thoracic aorta, pulmonary vasculature and heart/pericardium with minimal atherosclerotic changes again noted. No cardiomegaly or pericardial effusion. Musculoskeletal structures are intact. [id number] identified with tip in the SVC/right atrium. Limited upper abdomen demonstrates chronic cholelithiasis and normal bilateral adrenal glands. IMPRESSION: 1. Areas of metabolic activity on recent PET-CT appear to have resolved and likely represented transient inflammatory changes. 2. Two small 3 mm non solid areas of density in the right upper lobe represent new findings and likely represent transient atelectasis. However, short-term 3-6 month follow-up may be warranted given the patient's history of neoplasm. <Electronically signed by Aneudy Mott > 01/06/20 [id number]
== END ==
LOC: M RAD 07:09 → EEVIPCON 14:30
PROVIDERS: ATTEND Internal Medicine Pulmonary Disease
DX: R91.8 Other nonspecific abnormal finding of lung field (principal)

== ENCOUNTER → 2020-04-22 | Outpatient (REF) | payer OTHER | LOC: M LAB REF 16:32 | PROVIDERS: ATTEND Family Medicine | DX: E07.9 Disorder of thyroid, unspecified (principal) ==

== ENCOUNTER → 2020-05-04 | Outpatient (CLI) | payer OTHER ==
--- NOTE | 2020-05-04 10:16 | REP ---
INDICATION: ABNORMAL THYROID LABS COMPARISON: None. TECHNIQUE: Norwood scale and color evaluation of the thyroid gland using the linear high frequency transducer. FINDINGS: The thyroid gland is normal in contour, shape, size, and echogenicity. No nodule/mass or cystic abnormalities are appreciated. Right thyroid lobe measures 2.1 x 1.0 x 1.1 cm. Left thyroid lobe measures 2.8 x 1.5 x 1.2 cm. IMPRESSION: No obvious thyroid lesions identified. <Electronically signed by Aneudy Mott > 05/04/20 [id number]
== END ==
LOC: M RAD 09:22
PROVIDERS: ATTEND Family Medicine
DX: E07.9 Disorder of thyroid, unspecified (principal)

== ENCOUNTER → 2020-06-29 | Outpatient (CLI) | payer OTHER, MEDICARE ==
--- NOTE | 2020-06-29 12:53 | REP ---
INDICATION: RESTAGING TONGUE CANCER C02.9. COMPARISON: Multiple the latest 11/26/2019 TECHNIQUE: After the intravenous administration of 15.14 mCi of FDG 18 triplane whole-body PET-CT was performed from the skull base to the mid thigh. FINDINGS: There is no new hypermetabolic activity seen in the suprahyoid neck. There is hypermetabolic activity seen in both superficial and deep lobes of the parotid gland bilaterally. There is unchanged expected hypermetabolic activity seen surrounding the tracheostomy. No frankly abnormal hypermetabolic activity seen in the neck, chest, abdomen, or pelvis. IMPRESSION: 1. Hypermetabolic activity seen previously in the chest has resolved. 2. Parotid gland hypermetabolic activity which is not necessarily indicating recurrent disease. Certainly, parotitis cannot be ruled out by this exam. Intraparotid lymphadenopathy might also be considered, however, a contrast-enhanced neck CT would be necessary to confirm it diagnosis. 3. No definite abnormal hypermetabolic activity seen in the neck, chest, abdomen, or pelvis. <Electronically signed by Kristopher Irvin > 06/29/20 [id number]
== END ==
LOC: M PLARAD 07:31
PROVIDERS: ATTEND Internal Medicine Hematology & Oncology
DX: C02.9 Malignant neoplasm of tongue, unspecified (principal)

== ENCOUNTER → 2020-07-08 | Outpatient (CLI) | payer OTHER, MEDICARE ==
[~2020-07-08] MED LIST changes: +LIDO1CRE42 TOP; -LIDO2.5C15 TOP
--- NOTE | 2020-07-08 14:50 | REP ---
INDICATION: TRACHEOSTOMY STATUS. COMPARISON: None. TECHNIQUE: The procedure was performed by ODIN Henderson, under the direct supervision of Dr. Norwood. The procedure was performed with Willa Brice from speech pathology present. 5 ml aliquots of thin, pudding, mixed fruit, soft food, and hard food consistency barium was administered. FINDINGS: Penetration and aspiration was visualized during the exam. The detailed report of this examination will be provided by speech pathology. IMPRESSION: Penetration and aspiration was visualized, a detailed report will be provided by speech pathology. 2.0 minutes of fluoroscopy time was utilized for this procedure. Some fluoroscopic images are performed with last image hold technology. These images require no additional radiation <Electronically signed by Kate Fu > 07/08/20 [id number] <Electronically signed by Alex Norwood > 07/08/20 [id number]
== END ==
LOC: M ST 13:01
PROVIDERS: ATTEND Otolaryngology
DX: Z93.0 Tracheostomy status (principal)

== ENCOUNTER → 2020-07-16 | Outpatient (CLI) | payer OTHER, MEDICARE ==
--- NOTE | 2020-07-16 09:38 | REPVR ---
PROCEDURE INFORMATION: Exam: CT Neck With Contrast Exam date and time: 07/16/2020 8:50 AM Age: 60 years old Clinical indication: Other: Chronic sialoadenitis. History of tongue carcinoma. TECHNIQUE: Imaging protocol: Computed tomography images of the neck with contrast. Radiation optimization: All CT scans at this facility use at least one of these dose optimization techniques: automated exposure control; mA and/or kV adjustment per patient size (includes targeted exams where dose is matched to clinical indication); or iterative reconstruction. Contrast material: ISOVUE 370; Contrast volume: 75 ml; Contrast route: INTRAVENOUS (IV); COMPARISON: PT PET/CT Skull/mid thigh 06/29/2020 10:13 AM FINDINGS: Paranasal sinuses: There is a small air-fluid level in the left maxillary sinus. Remainder of the paranasal sinuses are clear. Nasopharynx: Unremarkable. Oropharynx: Unremarkable. No significant tonsillar enlargement. Hypopharynx: There is extensive diffuse submucosal soft tissue swelling involving the oropharynx and the hypopharynx extending into the epiglottis with effacement of the vallecula and pyriform sinus. These findings could be related to radiation and clinical correlation is recommended. Larynx: Unremarkable. Normal epiglottis. Retropharyngeal space: Unremarkable. Submandibular/Parotid glands: Examination reveals diffuse swelling and heterogeneous enhancement of bilateral parotid glands suggesting chronic sialadenitis. No discrete mass lesion is seen. Thyroid: Normal. No enlarged or calcified nodules. Lymph nodes: No significant lymphadenopathy is seen. Trachea: Tracheostomy tube is in good position. Lungs: Unremarkable as visualized. Bones/joints: The cervical spine demonstrates moderate degenerative changes at multiple levels. No discrete bony metastasis is seen. IMPRESSION: 1. Examination reveals diffuse swelling and heterogeneous enhancement of bilateral parotid glands suggesting chronic sialadenitis. No discrete mass lesion is seen. 2. No significant lymphadenopathy is seen. 3. Tracheostomy tube is in good position. 4. There is extensive diffuse submucosal soft tissue swelling involving the oropharynx and the hypopharynx extending into the epiglottis with effacement of the vallecula and pyriform sinus. These findings could be related to radiation and clinical correlation is recommended. Electronically signed by: Lamine Dumont On 07/16/2020 09:38:29 AM
--- NOTE | 2020-07-16 10:24 | REPVR ---
PROCEDURE INFORMATION: Exam: CT Chest Without Contrast; Diagnostic Exam date and time: 07/16/2020 8:50 AM Age: 60 years old Clinical indication: Chronic sialoadenitis. History of tongue squamous cell carcinoma. Follow-up pulmonary nodules. TECHNIQUE: Imaging protocol: Diagnostic computed tomography of the chest without contrast. Coronal and sagittal reformats were created and reviewed. 3D rendering (Not supervised by radiologist): MIP and/or 3D reconstructed images were created by the technologist. Radiation optimization: All CT scans at this facility use at least one of these dose optimization techniques: automated exposure control; mA and/or kV adjustment per patient size (includes targeted exams where dose is matched to clinical indication); or iterative reconstruction. COMPARISON: 1. PT PET/CT Skull/mid thigh 06/29/2020 10:[address] Chest without contrast 01/06/2020 7:54:[address] Chest without contrast 05/02/2019 12:29:00 AM 4. MRI ABD W/O FOL WITH 05/18/2018 11:39:[address] Abdomen with contrast 05/10/2018 2:37:12 PM FINDINGS: Tubes, catheters and devices: Right chest ported venous catheter is present with its catheter tip terminating at the right atrium. A tracheostomy tube is present with its tip terminating suitably above the renee. Lungs: Multiple calcified pulmonary nodules consistent with benign remote granulomas are redemonstrated. Left lower lobe superior segment 7 x 3 mm (average diameter 5 mm) solid nodule (series 201, image 41) is slightly decreased in size compared to 01/06/2020 when it measured 7 x 5 mm; this nodule measured 8 x 8 mm on 05/02/2019. Bilateral upper lobe apical mild ill-defined ground-glass opacities, micronodularity, and interlobular septal thickening are improved compared to 01/06/2020 but are not entirely resolved. The right upper lobe 3 mm "non solid densities" identified on the 01/06/2020 examination have resolved, consistent with areas of prior inflammation. Pleural spaces: No pleural effusion, mass or calcification. No pneumothorax. Heart: Coronary arterial atherosclerotic calcifications are present. Heart size is within normal limits. No pericardial effusion. Mediastinal space: Moderate amount of abdominal fat herniated through the esophageal diaphragmatic hiatus lying adjacent to the distal esophagus is mildly increased. No abnormal esophageal dilation. Pulmonary arteries: The main pulmonary arterial trunk is not enlarged. Aorta: Mild aortic atherosclerosis. No thoracic aortic aneurysm. Veins: Partial anomalous pulmonary venous return with the left upper lobe pulmonary vein draining to the left brachiocephalic vein is redemonstrated. Lymph nodes: No enlarged lymph nodes. Liver: Diffuse hypoattenuation of the liver consistent with fatty infiltration. The liver has diffuse micronodular contour suggestive of cirrhosis. A 4.6 x 4.4 cm region of enlargement of the right inferior/medial hepatic parenchyma (series 202, image 103) does not appear significantly changed in size compared to 05/10/2018; this was previously further evaluated with abdominal MRI on 05/18/2018. Gallbladder and bile ducts: Gallstones are present within the gallbladder. Adrenal glands: Adrenal glands are unremarkable. Kidneys and ureters: Right kidney upper pole low-attenuation simple-appearing cyst redemonstrated. Bones/joints: Degenerative spine disease. Soft tissues: Unremarkable. IMPRESSION: 1. The right upper lobe 3 mm nodules identified on 01/06/2020 have resolved, consistent with areas of prior inflammation. 2. Improved but not entirely resolved interstitial and airspace opacities of the bilateral lung apices. If the patient has a history of radiation treatment in the region, this may represent improving radiation pneumonitis. 3. Nonspecific left upper lobe solid 5 mm nodule is slightly decreased in size compared to 01/06/2020. Continued attention to this nodule on follow-up chest CT examinations is recommended. An inflammatory nodule or a treated neoplasm are considerations. 4. Hepatic steatosis. Findings suggestive of hepatic cirrhosis. 5. 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 Electronically signed by: Angel Herrera On 07/16/2020 10:24:18 AM
== END ==
LOC: M RAD 08:27
PROVIDERS: ATTEND Otolaryngology
DX: K11.23 Chronic sialoadenitis (principal)

== ENCOUNTER → 2020-07-16 | Outpatient (CLI) | payer OTHER, MEDICARE ==
[~2020-07-16] MED LIST changes: +ISOVUE-370 76% 100ML VIAL As Ordered ONE
== END ==
LOC: M RAD 08:18
PROVIDERS: ATTEND Internal Medicine Pulmonary Disease
DX: R91.8 Other nonspecific abnormal finding of lung field (principal)

== ENCOUNTER → 2020-08-13 | Outpatient (CLI) | payer OTHER, MEDICARE ==
[~2020-08-13] MED LIST changes: -ISOVUE-370 76% 100ML VIAL As Ordered ONE; +LEVO25TA5 PO; +LIDOCAINE 1% MDV 20ML VIAL As Ordered ONE; +MIDAZOLAM INJ 2MG/2ML VIAL (J2250 PER 1MG) As Ordered ONE; +NS 1,000 ML IV SCH; +ceFAZolin 2 GM/D5W 50 ML IV BAG (J0690 PER 500MG) As Ordered ONE; +ceFAZolin SOD 2 GM in IV 1 EA IV ONE; +diphenhydrAMINE 50MG/ML VIAL (J1200) As Ordered ONE; +fentaNYL 100 MCG/2 ML INJECTION (J3010) As Ordered ONE
--- NOTE | 2020-08-13 10:33 | IRHP ---
[facility] IR Pre-Procedure H & P General Date of Service: Aug 13, 2020 Procedure: Same Day Surgery Interval History and Physical I have seen the patient and reviewed last H & P performed within 30 days. There is no significant interval change. History of Present Illness Chief Complaint The patient is a 60-year-old male admitted with a reason for visit of Polycythemia. PRE-PROCEDURE DIAGNOSIS: Cancer. Treatment complete. HEART: Normal rate. LUNGS: Normal breathing at rest. ASA Classification ASA Classification: III-Severe systemic dis. Mallampati Score: II NPO: Yes Problems with prior sedation: No Obstructive Sleep Apnea: No Plan moderate sedation Allergies Coded Allergies: No Known Allergies (Unverified , 09/09/19) Home Medications Scheduled Levothyroxine Sodium (Levothyroxine Sodium), 25 MCG PO DAILY Lidocaine/Prilocaine (Lidocaine-Prilocaine Cream), 1 DOSE TOP ASDIRECTED Mupirocin (Mupirocin), 1 APLCT TOP TID, (Reported) ALEJANDRA PERALES MD Aug 13, 2020 10:33
[2020-08-13 12:35] VITALS: BP 124/81
--- NOTE | 2020-08-17 12:47 | IRPON ---
IR Postoperative Note Date Of Procedure: Aug 13, 2020 Time Of Procedure: 16:00 IR Postoperative Note IR Port Removal / Explant. IR Moderate sedation. Clinical Information:Tongue cancer. Treatment complete. Patient would like port removed. Physician: Dr. Lee Procedure: The patient was advised of the benefits, risks, and alternatives of the procedure and informed consent was obtained. A time out was performed with verification of the patient's name, MRN, site of procedure, and type of procedure to be performed. The patient was positioned in the supine position on the angiographic table. The site was prepped and draped in the usual sterile fashion. Moderate sedation was performed by the physician including the presence of an independent trained RN who assisted in monitoring the patient's level of consciousness and physiological status. Following the administration of fentanyl and Versed the physician spent 30 minutes of continuous [id number] time with the patient. A business operations coordinator radiograph reveals a right sided port. The soft tissues overlying the port were anesthetized with lidocaine. An incision was made over the port using a 15 blade scalpel in the location of the prior incision. The catheter was then freed with blunt dissection and extracted. Pressure was applied to obtain hemostasis. The port was then freed with blunt dissection and subsequently removed. There were no signs of infection. After hemostasis was achieved, the incision was closed with interrupted deep 3-0 Vicryl sutures and subcuticular Monocryl suture followed by glue and steri-strips. The site was covered with a sterile dressing. The patient tolerated the procedure well and was returned to the PRU in stable condition. EBL:Less than 5 mL Complications:None. Conclusions: 1. Successful explant of a right-sided port. 2. No signs of infection. Thank you for this referral ALEJANDRA LEE MD Aug 17, 2020 12:47
== END ==
LOC: M IRPRO 09:27
PROVIDERS: ATTEND Internal Medicine Hematology & Oncology
DX: Z45.2 Encounter for adjustment and management of vascular access device (principal); D45 Polycythemia vera; Z79.890 Hormone replacement therapy
CPT/HCPCS: 36590; 99152; 99153; J0690; J1644; J2250; J3010

== ENCOUNTER → 2020-09-01 | Outpatient (POV) | payer OTHER, MEDICARE ==
[~2020-09-01] VITALS: Ht 180.3 cm; Wt 68.2 kg
[~2020-09-01] MED LIST changes: -LIDOCAINE 1% MDV 20ML VIAL As Ordered ONE; -MIDAZOLAM INJ 2MG/2ML VIAL (J2250 PER 1MG) As Ordered ONE; -NS 1,000 ML IV SCH; -ceFAZolin 2 GM/D5W 50 ML IV BAG (J0690 PER 500MG) As Ordered ONE; -ceFAZolin SOD 2 GM in IV 1 EA IV ONE; -diphenhydrAMINE 50MG/ML VIAL (J1200) As Ordered ONE; -fentaNYL 100 MCG/2 ML INJECTION (J3010) As Ordered ONE
[2020-09-01 07:59] VITALS: BP 111/69
--- NOTE | 2020-09-02 14:31 | IRPN ---
[facility] IR Progress Note IR Progress Note DATE: Sep 01, 2020 FOLLOW-UP: Status post port removal. Patient states he is doing well. No pain, no fevers or chills. ON EXAMINATION: Port removal site appears to be healing well. Steri-Strips are still in place. No redness, or discharge. IMPRESSION: Doing well status post port removal. No further follow-up scheduled unless initiated by patient and/or referring provider. Thank you for this referral Allergies Coded Allergies: No Known Allergies (Unverified , 09/09/19) VS,Fishbone, I+O VS, Fishbone, I+O Vital Signs Date Time Temp Pulse Resp B/P (MAP) Pulse Ox O2 Delivery O2 Flow Rate FiO2 09/01/20 07:59 98.4 73 18 111/69 (83) 99 Room Air ALEAJNDRA PERALES MD Sep 02, 2020 14:31
== END ==
LOC: M IRPOV 07:47
PROVIDERS: ATTEND Radiology Diagnostic Radiology
DX: Z48.812 Encounter for surgical aftercare following surgery on the circulatory system (principal)

== ENCOUNTER → 2020-12-10 | Outpatient (CLI) | payer OTHER, MEDICARE ==
[~2020-12-10] MED LIST changes: +EUTH25TA PO
--- NOTE | 2020-12-10 09:48 | REP ---
INDICATION: ALCOHOLIC HEPATITIS/CIRRHOSIS COMPARISON: None. TECHNIQUE: Real time christensen scale ultrasound examination using curved array transducer. FINDINGS: Liver is markedly echogenic with poor through transmission suggesting fatty infiltration and/or hepatocellular disease. Pancreas is incompletely evaluated due to interposed bowel gas. The gallbladder is is contracted with multiple stones. No wall thickening or pericholecystic fluid identified. Common bile duct is not identifiable due to the above-mentioned hepatocellular disease. Right kidney is normal in reniform shape without hydronephrosis and measures 9.8 x 6.6 x 5.3 cm. 1.9 cm upper pole cyst noted. No ascites in the visualized right upper quadrant. IMPRESSION: Markedly limited examination due to technical factors related to hepatosteatosis/hepatocellular disease causing poor through transmission. If symptoms persist pre and postcontrast CT of the abdomen and pelvis may be considered for further investigation. <Electronically signed by Aneudy Mott > 12/10/20 [id number]
== END ==
LOC: M RAD 08:55
PROVIDERS: ATTEND Internal Medicine Gastroenterology
DX: K70.30 Alcoholic cirrhosis of liver without ascites (principal); K70.10 Alcoholic hepatitis without ascites

== ENCOUNTER → 2020-12-28 | Outpatient (CLI) | payer OTHER, MEDICARE ==
[~2020-12-28] MED LIST changes: +GASTROGRAFIN SOLUTION 30ML (Q9963) As Ordered ONE; +ISOVUE-370 76% 100ML VIAL As Ordered ONE
--- NOTE | 2020-12-28 16:34 | REPVR ---
PROCEDURE INFORMATION: Exam: CT Head With Contrast Exam date and time: 12/28/2020 4:13 PM Age: 60 years old Clinical indication: Condition or disease; Other: Head/neck CA TECHNIQUE: Imaging protocol: Computed tomography of the head with intravenous contrast. Radiation optimization: All CT scans at this facility use at least one of these dose optimization techniques: automated exposure control; mA and/or kV adjustment per patient size (includes targeted exams where dose is matched to clinical indication); or iterative reconstruction. Contrast material: ISOVUE 370; Contrast volume: 100 ml; Contrast route: INTRAVENOUS (IV); COMPARISON: CT Neck with contrast 07/16/2020 9:00 AM FINDINGS: Brain: No enhancing intracranial mass is identified. No overt intracranial hemorrhage or abnormal extra-axial collection is seen. Cerebral ventricles: No hydrocephalus. Bones/joints: Unremarkable. No acute fracture. Paranasal sinuses: There is mild sinus mucosal disease, with no air-fluid level identified. Mastoid air cells: There is no mastoid effusion detected. Soft tissues: Unremarkable. IMPRESSION: No enhancing intracranial lesions identified. Electronically signed by: Michelle Garcia On 12/28/2020 16:33:50 PM
--- NOTE | 2020-12-28 16:49 | REP ---
INDICATION: HEAD/NECK CA. COMPARISON: CT 07/16/2020, 01/06/2020. TECHNIQUE: Bolus 100 mL Isovue 370 scanning through the chest with coronal and sagittal reconstructions. FINDINGS: Right-sided jugular port catheter is removed. Tracheostomy tube is again seen well seated in the proximal to mid trachea. 6 mm nodule on image 39 in the left lower lobe unchanged. Ground-glass opacities in the bilateral apices are unchanged. I do not see any other significant nodules, masses, pleural thickening or calcified pleural plaque there is some minor subsegmental atelectatic or fibrotic change inferior lingular segment of the left upper lobe at the anterior left lung base. No effusion, calcified pleural plaque, pleural based mass or acute infiltrate. Heart not grossly enlarged. There is no pericardial thickening or effusion. Small hiatal hernia suggested. Thoracic aorta is without aneurysm or dissection. Main, right and left pulmonary arteries in the mediastinum are without filling defects. Visualized lobar arteries are also unremarkable. As an anatomic variation, there is a left upper lobe pulmonary vein draining directly to the left brachiocephalic vein representing a partial anomalous pulmonary venous return. No pathologic sized mediastinal, hilar, axillary or supraclavicular adenopathy. Chronic changes around the stoma at the neck base. Bone windows show some degenerative disc changes but no compression deformity or destructive lesion in the spine. Sternum, manubrium, medial clavicles, visualized portions of scapulae, humeral heads and ribs are without the focal lesion or fractures. There is fatty change of the liver the gallbladder is a very dense stone filling its lumen. Please see CT abdomen report this date for details. IMPRESSION: 1. No CT evidence of new or suspicious nodules, masses or infiltrates. Previous nodules in the left lung seen and stable from 07/16/2020. No new or suspicious finding. 2. Prior tracheostomy. 3. No bony metastatic disease, mediastinal or hilar adenopathy nor other acute finding. Stable exam. <Electronically signed by Mauricio Kuhn > 12/28/20 [id number]
--- NOTE | 2020-12-28 16:51 | REPVR ---
PROCEDURE INFORMATION: Exam: CT Neck With Contrast Exam date and time: 12/28/2020 4:13 PM Age: 60 years old Clinical indication: Condition or disease; Cancer; Throat; Additional info: Head/neck CA TECHNIQUE: Imaging protocol: Computed tomography images of the neck with contrast. Radiation optimization: All CT scans at this facility use at least one of these dose optimization techniques: automated exposure control; mA and/or kV adjustment per patient size (includes targeted exams where dose is matched to clinical indication); or iterative reconstruction. Contrast material: ISOVUE 370; Contrast volume: 100 ml; Contrast route: INTRAVENOUS (IV); COMPARISON: CT Neck with contrast 07/16/2020 9:00 AM FINDINGS: Nasopharynx: Unremarkable. Dental: The patient is edentulous. Oropharynx: Again noted is diffuse submucosal soft tissue swelling involving the oropharynx and hypopharynx, with involvement of the epiglottis. Retropharyngeal submucosal soft tissue swelling is also noted. Swelling is significantly improved compared to prior study. There is some residual effacement of the left vallecula. The piriform sinuses are still effaced bilaterally. Hypopharynx: See above. Larynx: See "Oropharynx" finding. Retropharyngeal space: See above. Submandibular/Parotid glands: Normal. Glands are normal in size. Thyroid: Normal. No enlarged or calcified nodules. Lymph nodes: No abnormally enlarged lymph nodes are identified. Trachea: Tracheostomy is in place. Lungs: Stable appearance of parenchymal scarring or chronic atelectasis in the left anterior lung apex. Bones/joints: No destructive osseous lesions are seen. Soft tissues: There is significantly decreased swelling of the uvula. Superficial soft tissue swelling is seen at the anterior aspect of the neck, may reflect post treatment changes. IMPRESSION: Diffuse submucosal soft tissue swelling involving the oropharynx and hypopharynx, significantly improved compared to 07/16/2020. Electronically signed by: Michelle Garcia On 12/28/2020 16:51:20 PM
--- NOTE | 2020-12-28 17:02 | REP ---
INDICATION: HEAD/NECK CA. COMPARISON: CT abdomen 05/10/2018, MRI abdomen 05/18/2018 hepatic ultrasound 12/10/2020 TECHNIQUE: Oral Gastrografin mixture 10 mL in 290 mL of flavored water for 2 doses per our bowel contrast protocol followed by scanning through the abdomen and pelvis with coronal and sagittal reconstructions. Delayed images through the abdomen also performed. FINDINGS: CT abdomen: Small hiatal hernia noted with the stomach unremarkable otherwise. Low-density of the liver overall consistent with fatty infiltration. Mildly prominent caudate lobe of the right lobe is also prominent and there is a slightly lobulated contour of the liver consistent with chronic liver disease. All of this is unchanged. No gross hepatomegaly, splenomegaly, focal hepatic or splenic lesion identified. Pattern of geographic fatty infiltration of the right lobe of the liver and caudate is again seen as was confirmed by MRI abdomen 05/18/2018. No new hepatic finding. Adrenal glands normal. Gallbladder shows densely calcified stone and is contracted around it that stone or conglomerate of stones measures 23 by 13 mm. Multiple small stones in the neck of the gallbladder and towards the common duct but no ductal dilatation in the tony hepatis or pancreatic head region. Pancreas unremarkable kidneys show a few small cysts, unchanged no solid mass, hydronephrosis, stone or hydroureter the ureters show normal course the bladder and are without dilatation or stone. Small bowel loops of fluid and contrast filled without dilatation, wall thickening or adjacent mesenteric edema. Stool and gas in the colon without signs of colitis or diverticulitis, a few scattered diverticula were noted. Lung window review of all CT slices abdomen and pelvis shows no perforation or free air. There are no inflammatory changes in the cecum. Small splenule is seen anterior and superior to the spleen as before. 0 bone windows show no change in appearance of the lower thoracic and lumbar vertebral levels and posterior elements no destructive lesions or fractures. Lower thoracic ribs grossly intact. CT pelvis: Sacrum, SI joints, hips and pelvis show degenerative changes without fracture or destructive lesion. Bladder shows no abnormal wall thickening, mass or stone. No dilated distal ureters in the pelvis or ureteral stone. See no ventral or inguinal hernia nor pathologic sized inguinal adenopathy. No ventral abdominal bowel herniation although there is omental fat herniating at the umbilicus. This is unchanged. Distal left colon, sigmoid and rectum unremarkable. No inflammatory changes about the cecum. IMPRESSION: 1. Diffuse fatty infiltration of the liver with a more focal geographic fatty infiltration near and at the in large caudate lobe, stable appearance and previously confirmed by MRI abdomen in 2019. 2. No abdominopelvic ascites, adenopathy, diverticulitis, stricture or mass. 3. Adrenal glands, kidneys, spleen and pancreas without acute finding. 4. Some bili cul hernia with small amount of omental fat but no bowel herniation. 5. No renal, ureteral or bladder stone nor hydronephrosis. No solid mass in either kidney. 6. Bones grossly unremarkable for any acute finding . <Electronically signed by Mauricio Kuhn > 12/28/20 [id number]
== END ==
LOC: M RAD 13:55
PROVIDERS: ATTEND Internal Medicine Hematology & Oncology
DX: C76.0 Malignant neoplasm of head, face and neck (principal)
CPT/HCPCS: 70460; 70491; 71260; 74177; Q9963; Q9967

== ENCOUNTER → 2021-01-04 | Outpatient (REF) | payer OTHER, MEDICARE ==
[~2021-01-04] MED LIST changes: -GASTROGRAFIN SOLUTION 30ML (Q9963) As Ordered ONE; -ISOVUE-370 76% 100ML VIAL As Ordered ONE
[2021-01-04 14:46] LABS: BILIRUBIN,DIRECT 0.5 MG/DL (0.0-0.2); BILIRUBIN,TOTAL 1.1 MG/DL (0.2-1.0); TOTAL PROTEIN 8.4 GM/DL (6.4-8.2)
== END ==
LOC: M LABDRWAD 13:08
PROVIDERS: ATTEND Internal Medicine Gastroenterology
DX: K70.30 Alcoholic cirrhosis of liver without ascites (principal); K70.10 Alcoholic hepatitis without ascites

== ENCOUNTER → 2021-01-06 | Outpatient (REF) | payer OTHER, MEDICARE ==
[2021-01-06 17:48] LABS: ALBUMIN 3.8 GM/DL (3.2-5.2); BILIRUBIN,DIRECT 0.3 MG/DL (0.0-0.2); BILIRUBIN,TOTAL 0.7 MG/DL (0.2-1.0); INR 0.99; PROTHROMBIN TIME 13.5 SECONDS (12.7-14.5); TOTAL PROTEIN 8.1 GM/DL (6.4-8.2)
== END ==
LOC: M LABDRWAD 16:33
PROVIDERS: ATTEND Internal Medicine Gastroenterology
DX: K70.10 Alcoholic hepatitis without ascites (principal)

== ENCOUNTER 2021-01-27 00:35 | Inpatient (IN) | payer OTHER, MEDICARE ==
[~2021-01-27] VITALS: Ht 180.3 cm; Wt 65.9 kg
[~2021-01-27 00:35] MED LIST changes: -ACET160O13 GT; +ACET160O14 GT; +POTA-151 PO; -POTA20TA6 PO
[2021-01-27] MEDS ORDERED: MORPHINE 4 MG/ML 1ML VIAL/SYRINGE (J2270) IV ONE (01:35)
[2021-01-27] MEDS ORDERED: NS 1,980 ML in IV 1 EA IV ONE (01:35)
[2021-01-27] MEDS ORDERED: ONDANSETRON 4MG/2ML VIAL IV ONE (01:35)
[2021-01-27] MEDS ORDERED: PIPERACILLIN/TAZOBACTAM SOD 3.375 GM in D5W MINI-BAG PLUS 50 ML IV ONE (01:35)
[2021-01-27] MEDS ORDERED: ACETAMINOPHEN 500 MG TAB PO ONE (01:40)
[2021-01-27 01:50] LABS: BASO % 0.3 % (0.0-1.0); HEMATOCRIT 36.9 % (42.0-52.0); HEMOGLOBIN 13.3 g/dl (13.5-17.5); LYMPH # 0.4 10^3/uL (1.5-5.0); LYMPH % 5.1 % (24.0-44.0); MEAN CORPUSCULAR HEMOGLOBIN 35.2 pg (27.0-33.0); MEAN CORPUSCULAR VOLUME 97.6 fl (80.0-96.0); MONO # 0.9 10^3/uL (0.0-0.8); MONO % 11.6 % (2.0-8.0); NEUTROPHILS # 6.1 10^3/uL (1.5-8.5); NEUTROPHILS % 82.6 % (36.0-66.0); PLATELET COUNT, AUTOMATED 203 10^3/uL (150-450); RED BLOOD COUNT 3.78 10^6/uL (4.30-6.10); WHITE BLOOD COUNT 7.4 10^3/uL (4.0-10.0)
[2021-01-27 02:36] LABS: ERYTHROCYTE SEDIMENTATION RATE 77 mm/hr (0-20)
[2021-01-27] MEDS ORDERED: MUPI2OI EXT (04:24)
[2021-01-27] MEDS ORDERED: VASEGEL6 TOP (04:24)
[2021-01-27] MEDS ORDERED: TUMS500C PO (04:24)
[2021-01-27] MEDS ORDERED: IBUP-1764 PO (04:24)
[2021-01-27] MEDS ORDERED: SYNT25TA PO (04:24)
[2021-01-27] MEDS ORDERED: HOME MED LIST COMPLETE! XX SCH (04:25)
[2021-01-27] MEDS ORDERED: CALCIUM CARBONATE 500 MG CHEW U/D PO PRN (04:30)
[2021-01-27] MEDS ORDERED: IBUPROFEN 400MG TAB PO PRN (04:30)
[2021-01-27] MEDS ORDERED: ACETAMINOPHEN TAB 650MG DOSE (2X325MG) PO PRN (04:30)
[2021-01-27] MEDS ORDERED: ISOVUE-370 76% 100ML VIAL As Ordered ONE (05:04)
[2021-01-27] MEDS ORDERED: LR 1,000 ML IV ONE (05:15)
[2021-01-27 05:46] LABS: RSV AMPLIFICATION NEGATIVE (NEGATIVE)
[2021-01-27] MEDS: LEVOTHYROXINE 25MCG TABLET (0.025MG) PO SCH (06:22)
[2021-01-27] MEDS: DOXYCYCLINE HYCLATE 100 MG in D5W MINI-BAG PLUS 100 ML IV SCH ×2 (06:23→16:48)
[2021-01-27] MEDS: cefTRIAXone SOD 1 GM in D5W MINI-BAG PLUS 50 ML IV SCH (09:00)
[2021-01-27] MEDS: ENOXAPARIN 40MG/0.4ML SYRINGE (J1650 PER 10MG) SC SCH (09:00)
[2021-01-27 14:30] VITALS: BP 94/64
[2021-01-27] MEDS ORDERED: oxyCODONE 5MG TAB PO PRN (16:35)
[2021-01-27] MEDS: KETOROLAC 30 MG/ML 1ML VIAL IV SCH (18:11)
[2021-01-27 22:00] VITALS: BP 117/72
[2021-01-27] MEDS: MUPIROCIN 2% OINT 22 GM TUBE EXT SCH (22:27)
[2021-01-28] MEDS: KETOROLAC 30 MG/ML 1ML VIAL IV SCH ×4 (00:37→17:48)
[2021-01-28 04:21] VITALS: O2SAT 95
[2021-01-28] MEDS: LEVOTHYROXINE 25MCG TABLET (0.025MG) PO SCH (05:32)
[2021-01-28] MEDS: DOXYCYCLINE HYCLATE 100 MG in D5W MINI-BAG PLUS 100 ML IV SCH ×2 (05:33→17:47)
[2021-01-28 06:00] VITALS: BP 104/66
[2021-01-28 07:36] LABS: EOS # 0.1 10^3/uL (0.0-0.5); EOS % 1.7 % (0.0-3.0); HEMATOCRIT 33.4 % (42.0-52.0); HEMOGLOBIN 11.8 g/dl (13.5-17.5); LYMPH # 0.5 10^3/uL (1.5-5.0); LYMPH % 17.1 % (24.0-44.0); MEAN CORPUSCULAR HEMOGLOBIN 35.5 pg (27.0-33.0); MEAN CORPUSCULAR HGB CONC 35.3 g/dl (32.0-36.5); MEAN CORPUSCULAR VOLUME 100.6 fl (80.0-96.0); MONO # 0.5 10^3/uL (0.0-0.8); MONO % 15.7 % (2.0-8.0); NEUTROPHILS # 1.9 10^3/uL (1.5-8.5); NEUTROPHILS % 63.8 % (36.0-66.0); PLATELET COUNT, AUTOMATED 176 10^3/uL (150-450); RED BLOOD COUNT 3.32 10^6/uL (4.30-6.10)
[2021-01-28 07:58] LABS: BLOOD UREA NITROGEN 7 MG/DL (7-18); C REACTIVE PROTEIN QUANTITATIV 9.39 MG/DL (0.00-0.30); CALCIUM LEVEL 8.1 MG/DL (8.5-10.1); CARBON DIOXIDE LEVEL 24 MEQ/L (21-32); CHLORIDE LEVEL 105 MEQ/L (98-107); CREATININE FOR GFR 1.01 MG/DL (0.70-1.30); GLOMERULAR FILTRATION RATE > 60.0 (>56); GLUCOSE, FASTING 94 MG/DL (70-100); POTASSIUM SERUM 3.6 MEQ/L (3.5-5.1); SODIUM LEVEL 137 MEQ/L (136-145)
[2021-01-28 08:15] LABS: URIC ACID 2.9 MG/DL (3.5-7.2)
[2021-01-28 09:00] VITALS: O2SAT 95
[2021-01-28] MEDS: ENOXAPARIN 40MG/0.4ML SYRINGE (J1650 PER 10MG) SC SCH (10:42)
[2021-01-28] MEDS: cefTRIAXone SOD 1 GM in D5W MINI-BAG PLUS 50 ML IV SCH (10:42)
[2021-01-28 14:56] VITALS: BP 121/75
[2021-01-28 20:35] VITALS: BP 128/78
[2021-01-28] MEDS: MUPIROCIN 2% OINT 22 GM TUBE EXT SCH (21:14)
[2021-01-29] MEDS: KETOROLAC 30 MG/ML 1ML VIAL IV SCH ×2 (00:14→05:01)
[2021-01-29] MEDS: LEVOTHYROXINE 25MCG TABLET (0.025MG) PO SCH (05:00)
[2021-01-29] MEDS: DOXYCYCLINE HYCLATE 100 MG in D5W MINI-BAG PLUS 100 ML IV SCH (05:01)
[2021-01-29 05:20] VITALS: BP 126/77
[2021-01-29 05:35] LABS: BASO % 0.9 % (0.0-1.0); EOS # 0.1 10^3/uL (0.0-0.5); EOS % 2.7 % (0.0-3.0); HEMATOCRIT 33.2 % (42.0-52.0); HEMOGLOBIN 11.7 g/dl (13.5-17.5); LYMPH # 0.5 10^3/uL (1.5-5.0); LYMPH % 20.6 % (24.0-44.0); MEAN CORPUSCULAR HEMOGLOBIN 34.8 pg (27.0-33.0); MEAN CORPUSCULAR HGB CONC 35.2 g/dl (32.0-36.5); MEAN CORPUSCULAR VOLUME 98.8 fl (80.0-96.0); MONO # 0.4 10^3/uL (0.0-0.8); MONO % 16.1 % (2.0-8.0); NEUTROPHILS # 1.3 10^3/uL (1.5-8.5); NEUTROPHILS % 59.3 % (36.0-66.0); PLATELET COUNT, AUTOMATED 181 10^3/uL (150-450); RED BLOOD COUNT 3.36 10^6/uL (4.30-6.10); WHITE BLOOD COUNT 2.2 10^3/uL (4.0-10.0)
[2021-01-29 05:59] LABS: BLOOD UREA NITROGEN 7 MG/DL (7-18); C REACTIVE PROTEIN QUANTITATIV 4.46 MG/DL (0.00-0.30); CALCIUM LEVEL 8.2 MG/DL (8.5-10.1); CARBON DIOXIDE LEVEL 24 MEQ/L (21-32); CHLORIDE LEVEL 106 MEQ/L (98-107); CREATININE FOR GFR 0.85 MG/DL (0.70-1.30); GLOMERULAR FILTRATION RATE > 60.0 (>56); GLUCOSE, FASTING 99 MG/DL (70-100); POTASSIUM SERUM 3.6 MEQ/L (3.5-5.1); SODIUM LEVEL 137 MEQ/L (136-145)
[2021-01-29] MEDS ORDERED: CEFD300C41 PO (08:46)
[2021-01-29] MEDS ORDERED: IBUP-1764 PO (08:46)
[2021-01-29] MEDS ORDERED: DOXY-350 PO (08:46)
[2021-01-29] MEDS: ENOXAPARIN 40MG/0.4ML SYRINGE (J1650 PER 10MG) SC SCH (09:00)
[2021-01-29] MEDS: cefTRIAXone SOD 1 GM in D5W MINI-BAG PLUS 50 ML IV SCH (09:10)
[2021-03-12] MEDS ORDERED: TRAM50TA2 PO ×3 (08:15→10:33)
== END 2021-01-29 10:25 | disposition home or self-care (01) | DRG 603 ==
LOC: M ED 00:35 → M ED INP 04:29 → ENRESERV 12:50 → M MS5PR 14:10
PROVIDERS: ADMIT Family Medicine; ATTEND Internal Medicine Nephrology
DX: L03.114 Cellulitis of left upper limb (principal); K70.30 Alcoholic cirrhosis of liver without ascites; E03.9 Hypothyroidism, unspecified; K21.9 Gastro-esophageal reflux disease without esophagitis; M11.242 Other chondrocalcinosis, left hand; R59.0 Localized enlarged lymph nodes; Z87.891 Personal history of nicotine dependence; Z85.810 Personal history of malignant neoplasm of tongue; Z98.49 Cataract extraction status, unspecified eye; Z93.0 Tracheostomy status; Z79.899 Other long term (current) drug therapy; Z92.3 Personal history of irradiation; Z92.21 Personal history of antineoplastic chemotherapy

== ENCOUNTER → 2021-02-08 | Outpatient (REF) | payer OTHER, MEDICARE ==
[~2021-02-08] MED LIST changes: +ACET160O13 GT; -ACET160O14 GT; +CEFD1CAP8 PO; +DOXY-350 PO; +IBUP-1764 PO; +MUPI2OI EXT; -POTA-151 PO; +POTA20TA6 PO; +SYNT25TA PO; +VASEGEL6 TOP
== END ==
LOC: M LAB REF 11:56
PROVIDERS: ATTEND Internal Medicine
DX: E07.9 Disorder of thyroid, unspecified (principal)

== ENCOUNTER → 2021-03-08 | Outpatient (CLI) | payer OTHER, MEDICARE ==
[~2021-03-08] MED LIST changes: -CEFD1CAP8 PO; +CEFD300C41 PO; +POTA-151 PO; -POTA20TA6 PO
== END ==
LOC: M LABSMTC 09:56
PROVIDERS: ATTEND Anesthesiology
DX: Z01.812 Encounter for preprocedural laboratory examination (principal); Z20.822 Contact with and (suspected) exposure to COVID-19

== ENCOUNTER → 2021-03-26 | Outpatient (CLI) | payer OTHER, MEDICARE ==
[~2021-03-26] MED LIST changes: -ACET160O13 GT; +ACET160O14 GT; +TRAM50TA2 PO
== END ==
LOC: M SOG 09:48
PROVIDERS: ATTEND Orthopaedic Surgery Hand Surgery
DX: M79.645 Pain in left finger(s) (principal)

== ENCOUNTER → 2021-04-01 | Outpatient (CLI) | payer OTHER, MEDICARE | LOC: M RAD 08:26 | PROVIDERS: ATTEND Internal Medicine Pulmonary Disease | DX: Z93.0 Tracheostomy status (principal) ==

== ENCOUNTER → 2021-07-22 | Outpatient (CLI) | payer OTHER, MEDICARE | LOC: M WHC 08:17 | PROVIDERS: ATTEND Internal Medicine Gastroenterology | DX: K70.30 Alcoholic cirrhosis of liver without ascites (principal) ==

== ENCOUNTER → 2021-08-20 | Outpatient (CLI) | payer OTHER, MEDICARE ==
[~2021-08-20] MED LIST changes: +ISOVUE-370 76% 100ML VIAL ONE
== END ==
LOC: M PLAIMG 13:48
PROVIDERS: ATTEND Nurse Practitioner
DX: C02.9 Malignant neoplasm of tongue, unspecified (principal)

== ENCOUNTER → 2022-01-12 | Outpatient (CLI) | payer OTHER, MEDICARE ==
[~2022-01-12] MED LIST changes: -DOXY-350 PO; +DOXY-444 PO; -ISOVUE-370 76% 100ML VIAL ONE
== END ==
LOC: M WHC 07:43
PROVIDERS: ATTEND Internal Medicine Gastroenterology
DX: K70.31 Alcoholic cirrhosis of liver with ascites (principal); K76.0 Fatty (change of) liver, not elsewhere classified; N28.1 Cyst of kidney, acquired

== ENCOUNTER → 2022-01-18 | Outpatient (CLI) | payer OTHER, MEDICARE ==
[~2022-01-18] MED LIST changes: +ISOVUE-370 76% 100ML VIAL As Ordered ONE
== END ==
LOC: M RAD 14:28
PROVIDERS: ATTEND Nurse Practitioner
DX: R91.1 Solitary pulmonary nodule (principal)

== ENCOUNTER 2022-02-04 16:41 | Emergency (ER) | payer OTHER, MEDICARE ==
[~2022-02-04] VITALS: Ht 180.3 cm; Wt 68.2 kg
[2022-02-04 16:41] VITALS: BP 129/81
[~2022-02-04 16:41] MED LIST changes: -ISOVUE-370 76% 100ML VIAL As Ordered ONE
[2022-02-04 18:14] LABS: BASO % 0.7 % (0.0-1.0); EOS % 0.2 % (0.0-3.0); HEMATOCRIT 40.1 % (42.0-52.0); HEMOGLOBIN 14.1 g/dl (13.5-17.5); LYMPH # 0.6 10^3/uL (1.5-5.0); LYMPH % 13.5 % (24.0-44.0); MEAN CORPUSCULAR HEMOGLOBIN 35.4 pg (27.0-33.0); MEAN CORPUSCULAR HGB CONC 35.2 g/dl (32.0-36.5); MEAN CORPUSCULAR VOLUME 100.8 fl (80.0-96.0); MONO # 0.7 10^3/uL (0.0-0.8); MONO % 15.4 % (2.0-8.0); NEUTROPHILS % 69.7 % (36.0-66.0); PLATELET COUNT, AUTOMATED 180 10^3/uL (150-450); RED BLOOD COUNT 3.98 10^6/uL (4.30-6.10); WHITE BLOOD COUNT 4.3 10^3/uL (4.0-10.0)
[2022-02-04 18:39] LABS: BLOOD UREA NITROGEN 6 MG/DL (9-23); CALCIUM LEVEL 8.8 MG/DL (8.3-10.6); CARBON DIOXIDE LEVEL 25 MMOL/L (20-31); CHLORIDE LEVEL 96 MMOL/L (98-107); CREATININE FOR GFR 0.93 MG/DL (0.70-1.30); GLOMERULAR FILTRATION RATE > 60.0 (>49); GLUCOSE, FASTING 103 MG/DL (74-106); POTASSIUM SERUM 4.5 MMOL/L (3.5-5.1); SODIUM LEVEL 129 MMOL/L (136-145)
[2022-02-04 19:04] LABS: ERYTHROCYTE SEDIMENTATION RATE 12 mm/hr (0-20)
[2022-02-05] MEDS ORDERED: IBUPROFEN 600MG TAB PO ONE (02:20)
[2022-02-05] MEDS ORDERED: KETOROLAC 60MG 2ML VIAL IM ONE (03:05)
[2022-02-05 03:24] VITALS: O2SAT 97
[2022-02-05] MEDS ORDERED: TRAM50TA2 PO (03:52)
== END 2022-02-05 04:52 | disposition home or self-care (01) ==
LOC: M ED 16:41
DX: M71.21 Synovial cyst of popliteal space [Baker], right knee (principal)
CPT/HCPCS: 36415; 71045; 80048; 85025; 85652; 86140; 87040; 87486; 87581; 87633; 87798; 93971; 96372; 99283; J1885

== ENCOUNTER 2022-02-07 09:07 | Inpatient (IN) | payer OTHER, MEDICARE ==
[2022-02-07 09:35] LABS: VENOUS BASE EXCESS -21.6 (-2.0-2.0); VENOUS HCO3 15.4 MEQ/L (23.0-27.0); VENOUS O2 SATURATION 50.7 % (60.0-80.0); VENOUS PARTIAL PRESSURE CO2 103.6 mmHg (38.0-50.0); VENOUS PARTIAL PRESSURE O2 45.6 mmHg (30.0-50.0); VENOUS STANDARD HCO3 8.7 MEQ/L; VENOUS TOTAL CO2 18.6 MEQ/L (24.0-28.0)
[2022-02-07 09:50] LABS: BASO # 0.1 10^3/uL (0.0-0.2); BASO % 1.1 % (0.0-1.0); EOS # 0.1 10^3/uL (0.0-0.5); EOS % 1.3 % (0.0-3.0); HEMATOCRIT 43.2 % (42.0-52.0); HEMOGLOBIN 14.2 g/dl (13.5-17.5); LYMPH # 3.2 10^3/uL (1.5-5.0); LYMPH % 41.6 % (24.0-44.0); MEAN CORPUSCULAR HEMOGLOBIN 35.1 pg (27.0-33.0); MEAN CORPUSCULAR HGB CONC 32.9 g/dl (32.0-36.5); MEAN CORPUSCULAR VOLUME 106.9 fl (80.0-96.0); MONO # 1.2 10^3/uL (0.0-0.8); MONO % 15.5 % (2.0-8.0); NEUTROPHILS % 39.4 % (36.0-66.0); PLATELET COUNT, AUTOMATED 263 10^3/uL (150-450); RED BLOOD COUNT 4.04 10^6/uL (4.30-6.10); WHITE BLOOD COUNT 7.6 10^3/uL (4.0-10.0)
[2022-02-07 10:16] LABS: INR 1.16
[2022-02-07 10:22] LABS: CK-MB VALUE MASS 1.7 NG/ML (<3.6)
[2022-02-07 10:23] LABS: CK-MB VALUE MASS 1.6 NG/ML (<3.6); ETHYL ALCOHOL (ETHANOL) 0.033 % (0.000-0.010); MB/CK RELATIVE INDEX 0.67 (< OR =4)
[2022-02-07 10:24] LABS: BILIRUBIN,DIRECT 0.5 MG/DL (<0.4); CPK CREATINE PHOSPHOKINASE 228 U/L (46-171); MB/CK RELATIVE INDEX 0.74 (< OR =4)
[2022-02-07 10:28] LABS: ALBUMIN 3.6 G/DL (3.2-5.2); ALKALINE PHOSPHATASE 86 U/L (46-116); ALT/SGPT 74 U/L (7.0-40); AST/SGOT 176 U/L (<34); BILIRUBIN,TOTAL 1.1 MG/DL (0.3-1.2); BLOOD UREA NITROGEN 10 MG/DL (9-23); CALCIUM LEVEL 9.1 MG/DL (8.3-10.6); CARBON DIOXIDE LEVEL 16 MMOL/L (20-31); CHLORIDE LEVEL 97 MMOL/L (98-107); CREATININE FOR GFR 1.22 MG/DL (0.70-1.30); GLOMERULAR FILTRATION RATE > 60.0 (>49); GLUCOSE, FASTING 143 MG/DL (74-106); POTASSIUM SERUM 3.5 MMOL/L (3.5-5.1); SODIUM LEVEL 132 MMOL/L (136-145); TOTAL PROTEIN 8.2 G/DL (5.7-8.2)
[2022-02-07] MEDS ORDERED: STERSOL2 TOP (11:30)
[2022-02-07] MEDS ORDERED: TUMS500C PO (11:30)
[2022-02-07] MEDS ORDERED: TRAM50TA2 PO (11:30)
[2022-02-07] MEDS ORDERED: LEVO50TA5 PO (11:30)
[2022-02-07] MEDS ORDERED: VASEGEL6 TOP (11:31)
[2022-02-07] MEDS ORDERED: HOME MED LIST COMPLETE! XX SCH (11:35)
[2022-02-07 13:28] LABS: ABG BASE EXCESS -1.7 (-2.0-2.0); ABG HCO3 22.8 MEQ/L (22.0-26.0); ABG O2 SATURATION 99.4 % (95.0-99.0); ABG PARTIAL PRESSURE CO2 38.1 mmHg (35.0-45.0); ABG PARTIAL PRESSURE O2 275.8 mmHg (75.0-100.0); ABG STANDARD HCO3 23.1 MEQ/L (22.0-26.0); ABG pH (ARTERIAL) 7.395 UNITS (7.350-7.450)
[2022-02-07] MEDS ORDERED: ALBUTEROL SULFATE 2.5MG/0.5ML INH NEB SOLN INH PRN (16:15)
[2022-02-07 16:30] VITALS: O2SAT 99
[2022-02-07 17:00] VITALS: BP 102/70
[2022-02-07 17:05] VITALS: O2SAT 99
[2022-02-07] MEDS: traMADol 50 MG TAB PO PRN (17:14)
[2022-02-07 17:36] VITALS: O2SAT 99
[2022-02-07 20:17] VITALS: BP 101/68
[2022-02-07 22:00] VITALS: O2SAT 96
[2022-02-08] VITALS (9 sets, daily range): BP systolic 103–131; BP diastolic 60–74; O2SAT 100
[2022-02-08] MEDS: LEVOTHYROXINE 75MCG TABLET (0.075MG) PO SCH (05:57)
[2022-02-08] MEDS: traMADol 50 MG TAB PO PRN (05:57)
[2022-02-08] MEDS ORDERED: LEVOTHYROXINE 50MCG TABLET (0.05MG) PO SCH (06:00)
[2022-02-08 07:39] LABS: HEMATOCRIT 34.1 % (42.0-52.0); HEMOGLOBIN 12.1 g/dl (13.5-17.5); MEAN CORPUSCULAR HEMOGLOBIN 35.7 pg (27.0-33.0); MEAN CORPUSCULAR HGB CONC 35.5 g/dl (32.0-36.5); MEAN CORPUSCULAR VOLUME 100.6 fl (80.0-96.0); RED BLOOD COUNT 3.39 10^6/uL (4.30-6.10); WHITE BLOOD COUNT 2.7 10^3/uL (4.0-10.0)
[2022-02-08 08:07] LABS: PLATELET COUNT, AUTOMATED 151 10^3/uL (150-450)
[2022-02-08 08:17] LABS: BLOOD UREA NITROGEN 14 MG/DL (9-23); CALCIUM LEVEL 8.1 MG/DL (8.3-10.6); CARBON DIOXIDE LEVEL 24 MMOL/L (20-31); CHLORIDE LEVEL 96 MMOL/L (98-107); GLOMERULAR FILTRATION RATE > 60.0 (>49); GLUCOSE, FASTING 80 MG/DL (74-106); POTASSIUM SERUM 4.1 MMOL/L (3.5-5.1); SODIUM LEVEL 131 MMOL/L (136-145)
[2022-02-08] MEDS ORDERED: MUCI1TAB16 PO (10:17)
[2022-02-08] MEDS: guaiFENesin ER 600 MG TAB PO SCH ×2 (11:45→21:16)
[2022-02-08] MEDS: IPRATROPIUM 0.5MG/ALBUTEROL 2.5MG INH SOL UD 3ML (DUONEB) NEB SCH ×4 (12:41→23:12)
[2022-02-09] VITALS: BP 115/64
[2022-02-09] MEDS: IPRATROPIUM 0.5MG/ALBUTEROL 2.5MG INH SOL UD 3ML (DUONEB) NEB SCH ×4 (03:11→15:37)
[2022-02-09 04:00] VITALS: BP 131/71
[2022-02-09 05:13] LABS: HEMATOCRIT 31.6 % (42.0-52.0); HEMOGLOBIN 11.3 g/dl (13.5-17.5); MEAN CORPUSCULAR HEMOGLOBIN 35.4 pg (27.0-33.0); MEAN CORPUSCULAR HGB CONC 35.8 g/dl (32.0-36.5); MEAN CORPUSCULAR VOLUME 99.1 fl (80.0-96.0); PLATELET COUNT, AUTOMATED 135 10^3/uL (150-450); RED BLOOD COUNT 3.19 10^6/uL (4.30-6.10); WHITE BLOOD COUNT 2.9 10^3/uL (4.0-10.0)
[2022-02-09 05:47] LABS: BLOOD UREA NITROGEN 11 MG/DL (9-23); CARBON DIOXIDE LEVEL 25 MMOL/L (20-31); CHLORIDE LEVEL 97 MMOL/L (98-107); CREATININE FOR GFR 0.92 MG/DL (0.70-1.30); GLOMERULAR FILTRATION RATE > 60.0 (>49); GLUCOSE, FASTING 134 MG/DL (74-106); POTASSIUM SERUM 3.5 MMOL/L (3.5-5.1); SODIUM LEVEL 130 MMOL/L (136-145)
[2022-02-09] MEDS: LEVOTHYROXINE 75MCG TABLET (0.075MG) PO SCH (06:16)
[2022-02-09 08:00] VITALS: BP 136/72
[2022-02-09] MEDS: guaiFENesin ER 600 MG TAB PO SCH (08:33)
[2022-02-09] MEDS: traMADol 50 MG TAB PO PRN ×2 (08:35→10:08)
[2022-02-09 12:00] VITALS: BP 134/80
== END 2022-02-09 16:10 | disposition home health service (06) | DRG 143 ==
LOC: M ED 09:07 → EDBD 09:07 → M ED INP 15:53 → OBSVTOIN 02-08 11:15 → ENRESERV 02-08 15:09 → M PCU 02-08 15:28
PROVIDERS: ADMIT Family Medicine; ATTEND General Practice
DX: J95.03 Malfunction of tracheostomy stoma (principal); K70.30 Alcoholic cirrhosis of liver without ascites; R06.03 Acute respiratory distress; Z85.810 Personal history of malignant neoplasm of tongue; Z92.3 Personal history of irradiation; Z92.21 Personal history of antineoplastic chemotherapy; E03.9 Hypothyroidism, unspecified; K21.9 Gastro-esophageal reflux disease without esophagitis; Y83.1 Surgical operation with implant of artificial internal device as the cause of abnormal reaction of the patient, or of later complication, without mention of misadventure at the time of the procedure; J44.9 Chronic obstructive pulmonary disease, unspecified; R23.0 Cyanosis; R09.02 Hypoxemia; Z87.891 Personal history of nicotine dependence; Z79.890 Hormone replacement therapy; Z79.899 Other long term (current) drug therapy

== ENCOUNTER → 2022-02-10 | Outpatient (REF) | payer OTHER ==
[~2022-02-10] MED LIST changes: +LEVO50TA5 PO; +MUCI1TAB16 PO; +STERSOL2 TOP
[2022-02-10 18:12] LABS: URIC ACID 4.7 MG/DL (3.7-9.2)
[2022-02-10 18:51] LABS: C REACTIVE PROTEIN QUANTITATIV 12.2 MG/DL (<1.0)
== END ==
LOC: M LAB REF 16:55
PROVIDERS: ATTEND Family Medicine
DX: M25.50 Pain in unspecified joint (principal)

== ENCOUNTER → 2022-02-10 | Outpatient (CLI) | payer OTHER, MEDICARE | LOC: M WUC 11:39 | PROVIDERS: ATTEND Family Medicine | DX: S92.535A Nondisplaced fracture of distal phalanx of left lesser toe(s), initial encounter for closed fracture (principal); M77.32 Calcaneal spur, left foot ==

== ENCOUNTER → 2022-05-10 | Outpatient (CLI) | payer MEDICARE, OTHER ==
[~2022-05-10] MED LIST changes: -ACET160O14 GT; +TYLE160S16 GT
== END ==
LOC: M RAD 12:41
PROVIDERS: ATTEND Internal Medicine Pulmonary Disease
DX: R05.9 Cough, unspecified (principal)

== ENCOUNTER → 2022-05-11 | Outpatient (CLI) | payer MEDICARE, OTHER ==
[~2022-05-11] MED LIST changes: +BARIUM SULFATE 700 MG TABLET (E-Z-DISK) As Ordered ONE; +E-Z-PAQUE 96% w/w SUSP 176GM BTL As Ordered ONE; +VARIBAR NECTAR 40% w/v 240ML SUSP BTL As Ordered ONE; +VARIBAR PUDDING 40% w/v 230ML TUBE As Ordered ONE
== END ==
LOC: M RAD 12:18
PROVIDERS: ATTEND Otolaryngology
DX: R13.10 Dysphagia, unspecified (principal)

== ENCOUNTER → 2022-08-18 | Outpatient (CLI) | payer OTHER, MEDICARE ==
[~2022-08-18] MED LIST changes: -BARIUM SULFATE 700 MG TABLET (E-Z-DISK) As Ordered ONE; -E-Z-PAQUE 96% w/w SUSP 176GM BTL As Ordered ONE; -HEPA100I9; -HEPA100I9 IV; +HEPAINJ4; +HEPAINJ4 IV; -VARIBAR NECTAR 40% w/v 240ML SUSP BTL As Ordered ONE; -VARIBAR PUDDING 40% w/v 230ML TUBE As Ordered ONE
[2022-08-18 10:34] LABS: BASO % 0.7 % (0.0-1.0); EOS % 1.1 % (0.0-3.0); HEMATOCRIT 43.7 % (42.0-52.0); HEMOGLOBIN 15.4 g/dl (13.5-17.5); LYMPH # 0.6 10^3/uL (1.5-5.0); LYMPH % 21.7 % (24.0-44.0); MEAN CORPUSCULAR HEMOGLOBIN 34.7 pg (27.0-33.0); MEAN CORPUSCULAR HGB CONC 35.2 g/dl (32.0-36.5); MEAN CORPUSCULAR VOLUME 98.4 fl (80.0-96.0); MONO # 0.4 10^3/uL (0.0-0.8); MONO % 12.9 % (2.0-8.0); NEUTROPHILS # 1.7 10^3/uL (1.5-8.5); NEUTROPHILS % 63.2 % (36.0-66.0); PLATELET COUNT, AUTOMATED 169 10^3/uL (150-450); RED BLOOD COUNT 4.44 10^6/uL (4.30-6.10); WHITE BLOOD COUNT 2.7 10^3/uL (4.0-10.0)
[2022-08-18 10:58] LABS: ALBUMIN 3.9 G/DL (3.2-5.2); ALKALINE PHOSPHATASE 67 U/L (46-116); ALT/SGPT 65 U/L (7.0-40); AST/SGOT 97 U/L (<34); BILIRUBIN,TOTAL 1.1 MG/DL (0.3-1.2); BLOOD UREA NITROGEN 6 MG/DL (9-23); CALCIUM LEVEL 9.7 MG/DL (8.3-10.6); CARBON DIOXIDE LEVEL 25 MMOL/L (20-31); CHLORIDE LEVEL 102 MMOL/L (98-107); CREATININE FOR GFR 0.92 MG/DL (0.70-1.30); GLOMERULAR FILTRATION RATE > 60.0 (>49); GLUCOSE, FASTING 91 MG/DL (74-106); POTASSIUM SERUM 3.8 MMOL/L (3.5-5.1); SODIUM LEVEL 134 MMOL/L (136-145)
[2022-08-18 11:03] LABS: INR 0.99; PROTHROMBIN TIME 13.3 SECONDS (12.5-14.5)
== END ==
LOC: M RAD 08:58
PROVIDERS: ATTEND Internal Medicine Gastroenterology
DX: K70.30 Alcoholic cirrhosis of liver without ascites (principal)

== ENCOUNTER → 2022-10-13 | Outpatient (CLI) | payer OTHER, MEDICARE ==
[~2022-10-13] MED LIST changes: +ISOVUE-370 76% 100ML VIAL As Ordered ONE; -LIDO1CRE42 TOP; +LIDO30CR18 TOP
== END ==
LOC: M RAD 09:16
PROVIDERS: ATTEND Specialist
DX: C02.9 Malignant neoplasm of tongue, unspecified (principal)

== ENCOUNTER → 2022-11-03 | Outpatient (CLI) | payer OTHER, MEDICARE ==
[~2022-11-03] MED LIST changes: -ISOVUE-370 76% 100ML VIAL As Ordered ONE
== END ==
LOC: M WUC 09:26
PROVIDERS: ATTEND Nurse Practitioner Family
DX: M25.571 Pain in right ankle and joints of right foot (principal)

== ENCOUNTER 2022-11-24 10:35 | Day surgery (SDC) | payer OTHER, MEDICARE ==
[~2022-11-24] VITALS: Ht 180.3 cm; Wt 66.7 kg
[~2022-11-24 10:35] MED LIST changes: +ALBU2.5V10 INH; +NS 1,000 ML IV ONE
[2022-11-24 13:08] VITALS: BP 138/78; TEMP 98; O2SAT 98
== END 2022-11-24 13:10 | disposition home or self-care (01) ==
LOC: M OPP 10:35
PROVIDERS: ATTEND Internal Medicine Gastroenterology
DX: Z13.810 Encounter for screening for upper gastrointestinal disorder (principal); K29.80 Duodenitis without bleeding; K29.50 Unspecified chronic gastritis without bleeding; B96.81 Helicobacter pylori [H. pylori] as the cause of diseases classified elsewhere; Z79.51 Long term (current) use of inhaled steroids; Z79.890 Hormone replacement therapy; Z79.891 Long term (current) use of opiate analgesic

== ENCOUNTER 2023-03-02 07:22 | Emergency (ER) | payer OTHER, MEDICARE ==
[~2023-03-02] VITALS: Ht 180.3 cm; Wt 69.8 kg
[~2023-03-02 07:22] MED LIST changes: +CEFD1CAP9 PO; -CEFD300C41 PO; -NS 1,000 ML IV ONE
[2023-03-02 08:28] VITALS: BP 126/67; TEMP 99.2; O2SAT 98
== END 2023-03-02 08:29 | disposition home or self-care (01) ==
LOC: M ED 07:22
DX: J95.03 Malfunction of tracheostomy stoma (principal); F17.210 Nicotine dependence, cigarettes, uncomplicated; Z79.51 Long term (current) use of inhaled steroids; Z79.890 Hormone replacement therapy

== ENCOUNTER → 2023-03-09 | Outpatient (CLI) | payer OTHER, MEDICARE | LOC: M RAD 07:31 | PROVIDERS: ATTEND Internal Medicine Gastroenterology | DX: K70.31 Alcoholic cirrhosis of liver with ascites (principal); N28.1 Cyst of kidney, acquired; R14.0 Abdominal distension (gaseous) ==

== ENCOUNTER → 2023-03-20 | Outpatient (CLI) | payer OTHER, MEDICARE ==
[~2023-03-20] MED LIST changes: +ISOVUE-370 76% 100ML VIAL As Ordered ONE
== END ==
LOC: M RAD 14:32
PROVIDERS: ATTEND Specialist
DX: C02.9 Malignant neoplasm of tongue, unspecified (principal); Z93.0 Tracheostomy status; J84.10 Pulmonary fibrosis, unspecified; K76.0 Fatty (change of) liver, not elsewhere classified; K80.20 Calculus of gallbladder without cholecystitis without obstruction
CPT/HCPCS: 70491; 71260; Q9967

== ENCOUNTER → 2023-04-11 | Outpatient (CLI) | payer OTHER, MEDICARE ==
[~2023-04-11] MED LIST changes: -ISOVUE-370 76% 100ML VIAL As Ordered ONE; -MIRA1POW3 GT; +MIRA33506 GT
[2023-04-11 11:34] LABS: INR 1.03; PROTHROMBIN TIME 13.2 SECONDS (12.5-14.5)
[2023-04-11 11:43] LABS: ALBUMIN 3.5 G/DL (3.2-5.2); BILIRUBIN,DIRECT 0.4 MG/DL (<0.4); BILIRUBIN,TOTAL 0.8 MG/DL (0.3-1.2); TOTAL PROTEIN 7.4 G/DL (5.7-8.2)
== END ==
LOC: M LAB 10:30
PROVIDERS: ATTEND Internal Medicine Gastroenterology
DX: K70.31 Alcoholic cirrhosis of liver with ascites (principal); B96.81 Helicobacter pylori [H. pylori] as the cause of diseases classified elsewhere

== ENCOUNTER → 2023-04-13 | Outpatient (REF) | payer OTHER, MEDICARE | LOC: M LAB REF 10:19 | PROVIDERS: ATTEND Internal Medicine Gastroenterology | DX: A04.8 Other specified bacterial intestinal infections (principal) ==

== ENCOUNTER 2023-05-11 10:45 | Emergency (ER) | payer OTHER, MEDICARE ==
[~2023-05-11] VITALS: Ht 180.3 cm; Wt 67.5 kg
[2023-05-11 12:39] VITALS: BP 168/79; TEMP 97.8; O2SAT 100
== END 2023-05-11 12:43 | disposition home or self-care (01) ==
LOC: M ED 10:45
DX: J95.03 Malfunction of tracheostomy stoma (principal); C02.9 Malignant neoplasm of tongue, unspecified; Z79.51 Long term (current) use of inhaled steroids; Z79.899 Other long term (current) drug therapy

== ENCOUNTER → 2023-07-27 | Outpatient (CLI) | payer OTHER, MEDICARE ==
[~2023-07-27] MED LIST changes: +DOXY-440 PO; -DOXY-444 PO; +ONDA-282 PO; -ONDA4TAB6 PO
[2023-07-27 16:28] LABS: BASO % 0.8 % (0.0-1.0); EOS % 0.8 % (0.0-3.0); HEMOGLOBIN 14.1 g/dl (13.5-17.5); LYMPH # 0.7 10^3/uL (1.5-5.0); LYMPH % 18.3 % (24.0-44.0); MEAN CORPUSCULAR HEMOGLOBIN 35.2 pg (27.0-33.0); MEAN CORPUSCULAR HGB CONC 35.3 g/dl (32.0-36.5); MEAN CORPUSCULAR VOLUME 99.8 fl (80.0-96.0); MONO # 0.5 10^3/uL (0.0-0.8); MONO % 14.5 % (2.0-8.0); NEUTROPHILS # 2.4 10^3/uL (1.5-8.5); NEUTROPHILS % 65.3 % (36.0-66.0); PLATELET COUNT, AUTOMATED 143 10^3/uL (150-450); RED BLOOD COUNT 4.01 10^6/uL (4.30-6.10); WHITE BLOOD COUNT 3.7 10^3/uL (4.0-10.0)
[2023-07-27 16:46] LABS: ALBUMIN 3.5 G/DL (3.2-5.2); ALKALINE PHOSPHATASE 77 U/L (46-116); ALT/SGPT 49 U/L (7.0-40); AST/SGOT 95 U/L (<34); BILIRUBIN,TOTAL 0.7 MG/DL (0.3-1.2); BLOOD UREA NITROGEN 7 MG/DL (9-23); CALCIUM LEVEL 9.2 MG/DL (8.3-10.6); CARBON DIOXIDE LEVEL 32 MMOL/L (20-31); CHLORIDE LEVEL 100 MMOL/L (98-107); CHOLESTEROL LEVEL 155 MG/DL (<200); CHOLESTEROL RISK RATIO 1.44 (<5); CREATININE FOR GFR 0.89 MG/DL (0.70-1.30); GLOMERULAR FILTRATION RATE > 60.0 (>49); GLUCOSE, FASTING 79 MG/DL (74-106); HDL CHOLESTEROL 107.2 MG/DL (>40); NON-HDL-C 47.8 MG/DL; SODIUM LEVEL 135 MMOL/L (136-145); TOTAL PROTEIN 7.7 G/DL (5.7-8.2); TRIGLYCERIDES LEVEL 89 MG/DL (<150)
== END ==
LOC: M LAB 16:02
PROVIDERS: ATTEND Family Medicine
DX: D64.9 Anemia, unspecified (principal)

== ENCOUNTER → 2023-10-25 | Outpatient (CLI) | payer OTHER, MEDICARE | LOC: M RAD 10:00 | PROVIDERS: ATTEND Internal Medicine Gastroenterology | DX: K76.0 Fatty (change of) liver, not elsewhere classified (principal); N28.1 Cyst of kidney, acquired; K80.20 Calculus of gallbladder without cholecystitis without obstruction ==

== ENCOUNTER → 2024-02-02 | Outpatient (CLI) | payer OTHER, MEDICARE ==
[2024-02-02 14:25] LABS: HEMATOCRIT 39.8 % (42.0-52.0); HEMOGLOBIN 14.2 g/dl (13.5-17.5); MEAN CORPUSCULAR HEMOGLOBIN 35.9 pg (27.0-33.0); MEAN CORPUSCULAR HGB CONC 35.7 g/dl (32.0-36.5); MEAN CORPUSCULAR VOLUME 100.5 fl (80.0-96.0); PLATELET COUNT, AUTOMATED 149 10^3/uL (150-450); RED BLOOD COUNT 3.96 10^6/uL (4.30-6.10); WHITE BLOOD COUNT 5.7 10^3/uL (4.0-10.0)
[2024-02-02 14:42] LABS: INR 1.16; PROTHROMBIN TIME 15.1 SECONDS (12.5-14.5)
[2024-02-02 14:49] LABS: ALBUMIN 3.3 G/DL (3.2-5.2); ALKALINE PHOSPHATASE 92 U/L (40-129); ALT/SGPT 45 U/L (7.0-40); AST/SGOT 100 U/L (<34); BILIRUBIN,TOTAL 1.3 MG/DL (0.3-1.2); BLOOD UREA NITROGEN 6 MG/DL (9-23); CALCIUM LEVEL 9.3 MG/DL (8.3-10.6); CARBON DIOXIDE LEVEL 27 MMOL/L (20-31); CHLORIDE LEVEL 99 MMOL/L (98-107); CREATININE FOR GFR 0.83 MG/DL (0.70-1.30); GLOMERULAR FILTRATION RATE > 60.0 (>49); GLUCOSE, FASTING 93 MG/DL (74-106); POTASSIUM SERUM 4.1 MMOL/L (3.5-5.1); SODIUM LEVEL 133 MMOL/L (136-145); TOTAL PROTEIN 8.1 G/DL (5.7-8.2)
[2024-02-02 15:35] LABS: ATYPICAL LYMPH 6 % (0-5); LYMPHOCYTES 17 % (16-44); MONOCYTES 9 % (0-5); NEUTROPHILS 63 % (28-66)
[2024-02-02 15:36] LABS: PLATELET ESTIMATE NORMAL (NORMAL)
== END ==
LOC: M LAB 13:09
PROVIDERS: ATTEND Internal Medicine Gastroenterology
DX: K70.11 Alcoholic hepatitis with ascites (principal)

== ENCOUNTER → 2024-02-02 | Outpatient (CLI) | payer OTHER, MEDICARE ==
[2024-02-02 15:12] LABS: FREE T4 0.63 NG/DL (0.89-1.76)
[2024-02-02 19:45] LABS: THYROID STIMULATING HORMONE > 150.000 uIU/ML (0.55-4.78)
[2024-02-02 20:02] LABS: FREE T3 2.4 PG/ML (2.3-4.2)
== END ==
LOC: M LAB 13:01
PROVIDERS: ATTEND Family Medicine
DX: E03.9 Hypothyroidism, unspecified (principal)

== ENCOUNTER → 2024-02-03 | Outpatient (CLI) | payer OTHER, MEDICARE ==
[2024-02-03 10:17] LABS: HEMATOCRIT 39.9 % (42.0-52.0); HEMOGLOBIN 14.1 g/dl (13.5-17.5); MEAN CORPUSCULAR HEMOGLOBIN 35.6 pg (27.0-33.0); MEAN CORPUSCULAR HGB CONC 35.3 g/dl (32.0-36.5); MEAN CORPUSCULAR VOLUME 100.8 fl (80.0-96.0); PLATELET COUNT, AUTOMATED 153 10^3/uL (150-450); RED BLOOD COUNT 3.96 10^6/uL (4.30-6.10); WHITE BLOOD COUNT 4.6 10^3/uL (4.0-10.0)
[2024-02-03 10:42] LABS: ALBUMIN 3.3 G/DL (3.2-5.2); ALKALINE PHOSPHATASE 83 U/L (40-129); ALT/SGPT 39 U/L (7.0-40); AST/SGOT 80 U/L (<34); BILIRUBIN,TOTAL 1.5 MG/DL (0.3-1.2); BLOOD UREA NITROGEN 6 MG/DL (9-23); CALCIUM LEVEL 9.3 MG/DL (8.3-10.6); CARBON DIOXIDE LEVEL 28 MMOL/L (20-31); CHLORIDE LEVEL 100 MMOL/L (98-107); CHOLESTEROL LEVEL 136 MG/DL (<200); CHOLESTEROL RISK RATIO 1.55 (<5); CREATININE FOR GFR 0.83 MG/DL (0.70-1.30); GLOMERULAR FILTRATION RATE > 60.0 (>49); GLUCOSE, FASTING 103 MG/DL (74-106); HDL CHOLESTEROL 87.4 MG/DL (>40); LDL CHOLESTEROL 41.4 MG/DL (<100); MAGNESIUM LEVEL 1.9 MG/DL (1.8-2.4); NON-HDL-C 48.6 MG/DL; POTASSIUM SERUM 4.2 MMOL/L (3.5-5.1); SODIUM LEVEL 134 MMOL/L (136-145); TOTAL PROTEIN 7.9 G/DL (5.7-8.2); TRIGLYCERIDES LEVEL 36 MG/DL (<150)
[2024-02-03 10:44] LABS: FREE T3 2.5 PG/ML (2.3-4.2); FREE T4 0.64 NG/DL (0.89-1.76)
[2024-02-03 10:46] LABS: THYROID STIMULATING HORMONE > 150.000 uIU/ML (0.55-4.78)
[2024-02-03 10:49] LABS: ATYPICAL LYMPH 18 % (0-5); BASOPHILS 1 % (0-1); LYMPHOCYTES 10 % (16-44); MONOCYTES 11 % (0-5); NEUTROPHILS 52 % (28-66); PLASMA CELL 1 % (0-0)
[2024-02-03 10:51] LABS: PLATELET ESTIMATE NORMAL (NORMAL)
== END ==
LOC: M LAB 08:47
PROVIDERS: ATTEND Family Medicine
DX: R25.2 Cramp and spasm (principal); E03.9 Hypothyroidism, unspecified; K21.9 Gastro-esophageal reflux disease without esophagitis; Z13.220 Encounter for screening for lipoid disorders

== ENCOUNTER → 2024-03-06 | Outpatient (CLI) | payer OTHER, MEDICARE ==
[~2024-03-06] MED LIST changes: +ISOVUE-370 76% 100ML VIAL As Ordered ONE
== END ==
LOC: M RAD 09:25
PROVIDERS: ATTEND Internal Medicine Medical Oncology
DX: C76.0 Malignant neoplasm of head, face and neck (principal)

== ENCOUNTER → 2024-04-19 | Outpatient (CLI) | payer OTHER, MEDICARE | LOC: M RAD 16:31 | PROVIDERS: ATTEND Internal Medicine Medical Oncology | DX: C02.9 Malignant neoplasm of tongue, unspecified (principal) ==

== ENCOUNTER → 2024-05-10 | Outpatient (CLI) | payer OTHER, MEDICARE ==
[~2024-05-10] MED LIST changes: -ISOVUE-370 76% 100ML VIAL As Ordered ONE; +MAGICMW SSP; +PROHANCE 279.3MG/ML 15ML VIAL ONE
== END ==
LOC: M PLAIMG 12:46
PROVIDERS: ATTEND Internal Medicine Medical Oncology
DX: C02.9 Malignant neoplasm of tongue, unspecified (principal); J32.0 Chronic maxillary sinusitis; J32.2 Chronic ethmoidal sinusitis; R68.84 Jaw pain; Z98.890 Other specified postprocedural states
CPT/HCPCS: 70543; A9576

== ENCOUNTER → 2024-05-22 | Outpatient (CLI) | payer OTHER, MEDICARE ==
[~2024-05-22] VITALS: Ht 180.3 cm; Wt 142.2 kg
[~2024-05-22] MED LIST changes: -PROHANCE 279.3MG/ML 15ML VIAL ONE
[2024-05-22 15:42] VITALS: BP 114/70; O2SAT 99
== END ==
LOC: M PAL 15:31
PROVIDERS: ATTEND Physician Assistant
DX: Z51.5 Encounter for palliative care (principal); Z85.810 Personal history of malignant neoplasm of tongue; Z92.21 Personal history of antineoplastic chemotherapy; Z92.3 Personal history of irradiation

== ENCOUNTER → 2024-06-17 | Outpatient (CLI) | payer OTHER, MEDICARE ==
[~2024-06-17] MED LIST changes: +BARIUM SULFATE 700 MG TABLET (E-Z-DISK) As Ordered ONE; +E-Z-PAQUE 96% w/w SUSP 176GM BTL As Ordered ONE; +VARIBAR NECTAR 40% w/v 240ML SUSP BTL As Ordered ONE; +VARIBAR PUDDING 40% w/v 230ML TUBE As Ordered ONE
== END ==
LOC: M RAD 11:41
PROVIDERS: ATTEND Otolaryngology
DX: R13.10 Dysphagia, unspecified (principal)

== ENCOUNTER → 2024-06-19 | Outpatient (CLI) | payer OTHER, MEDICARE ==
[~2024-06-19] VITALS: Ht 180.3 cm; Wt 63.0 kg
[~2024-06-19] MED LIST changes: -BARIUM SULFATE 700 MG TABLET (E-Z-DISK) As Ordered ONE; -E-Z-PAQUE 96% w/w SUSP 176GM BTL As Ordered ONE; -VARIBAR NECTAR 40% w/v 240ML SUSP BTL As Ordered ONE; -VARIBAR PUDDING 40% w/v 230ML TUBE As Ordered ONE
[2024-06-19 16:12] VITALS: BP 125/70; O2SAT 97
== END ==
LOC: M PAL 15:55
PROVIDERS: ATTEND Physician Assistant
DX: Z51.5 Encounter for palliative care (principal); Z85.810 Personal history of malignant neoplasm of tongue; Z92.21 Personal history of antineoplastic chemotherapy; Z92.3 Personal history of irradiation; Z79.891 Long term (current) use of opiate analgesic

== ENCOUNTER → 2024-07-07 | Outpatient (CLI) | payer OTHER, MEDICARE ==
[~2024-07-07] MED LIST changes: +IBUP200C89 PO
[2024-07-07 11:33] LABS: BASO % 1.3 % (0.0-1.0); HEMATOCRIT 40.3 % (42.0-52.0); HEMOGLOBIN 14.3 g/dl (13.5-17.5); LYMPH # 0.8 10^3/uL (1.5-5.0); LYMPH % 26.2 % (24.0-44.0); MEAN CORPUSCULAR HEMOGLOBIN 32.9 pg (27.0-33.0); MEAN CORPUSCULAR HGB CONC 35.5 g/dl (32.0-36.5); MEAN CORPUSCULAR VOLUME 92.9 fl (80.0-96.0); MONO # 0.4 10^3/uL (0.0-0.8); NEUTROPHILS # 1.8 10^3/uL (1.5-8.5); NEUTROPHILS % 59.2 % (36.0-66.0); PLATELET COUNT, AUTOMATED 167 10^3/uL (150-450); RED BLOOD COUNT 4.34 10^6/uL (4.30-6.10); WHITE BLOOD COUNT 3.1 10^3/uL (4.0-10.0)
[2024-07-07 12:01] LABS: ALBUMIN 3.7 G/DL (3.2-5.2); ALKALINE PHOSPHATASE 46 U/L (40-129); ALT/SGPT 13 U/L (7.0-40); AST/SGOT 28 U/L (<34); BILIRUBIN,TOTAL 0.9 MG/DL (0.3-1.2); BLOOD UREA NITROGEN 8 MG/DL (9-23); CARBON DIOXIDE LEVEL 28 MMOL/L (20-31); CHLORIDE LEVEL 102 MMOL/L (98-107); CREATININE FOR GFR 0.87 MG/DL (0.70-1.30); GLOMERULAR FILTRATION RATE > 90.0 (>49); GLUCOSE, FASTING 93 MG/DL (74-106); POTASSIUM SERUM 3.8 MMOL/L (3.5-5.1); SODIUM LEVEL 138 MMOL/L (136-145); TOTAL PROTEIN 7.9 G/DL (5.7-8.2)
== END ==
LOC: M LAB 10:58
PROVIDERS: ATTEND Family Medicine
DX: D64.9 Anemia, unspecified (principal); K70.30 Alcoholic cirrhosis of liver without ascites; E03.9 Hypothyroidism, unspecified

== ENCOUNTER → 2024-08-26 | Outpatient (CLI) | payer OTHER, MEDICARE ==
[2024-08-26 13:38] LABS: BASO # 0.0 10^3/uL (0.0-0.2); BASO % 0.6 % (0.0-1.0); EOS # 0.0 10^3/uL (0.0-0.5); EOS % 0.4 % (0.0-3.0); LYMPH # 0.6 10^3/uL (1.5-5.0); LYMPH % 12.9 % (24.0-44.0); MONO # 0.6 10^3/uL (0.0-0.8); MONO % 12.7 % (2.0-8.0); NEUTROPHILS # 3.4 10^3/uL (1.5-8.5); NEUTROPHILS % 73.0 % (36.0-66.0); PLATELET COUNT, AUTOMATED 188 10^3/uL (150-450)
[2024-08-26 14:07] LABS: ALT/SGPT 10 U/L (7.0-40); AST/SGOT 33 U/L (<34); CALCIUM LEVEL 9.8 MG/DL (8.3-10.6); CARBON DIOXIDE LEVEL 28 MMOL/L (20-31); CHLORIDE LEVEL 104 MMOL/L (98-107); CREATININE FOR GFR 0.79 MG/DL (0.70-1.30); GLOMERULAR FILTRATION RATE > 90.0 (>49); POTASSIUM SERUM 4.1 MMOL/L (3.5-5.1); SODIUM LEVEL 141 MMOL/L (136-145)
[2024-08-26 14:24] LABS: INR 1.05
== END ==
LOC: M LAB 12:36
PROVIDERS: ATTEND Internal Medicine Gastroenterology
DX: K70.11 Alcoholic hepatitis with ascites (principal)

== ENCOUNTER → 2024-09-11 | Outpatient (CLI) | payer OTHER, MEDICARE ==
[~2024-09-11] MED LIST changes: +ISOVUE-370 76% 100 ML VIAL As Ordered ONE
== END ==
LOC: M RAD 09:10
PROVIDERS: ATTEND Internal Medicine Gastroenterology
DX: K70.30 Alcoholic cirrhosis of liver without ascites (principal); D37.6 Neoplasm of uncertain behavior of liver, gallbladder and bile ducts

== ENCOUNTER → 2024-10-01 | Outpatient (CLI) | payer OTHER, MEDICARE ==
[~2024-10-01] MED LIST changes: -ISOVUE-370 76% 100 ML VIAL As Ordered ONE
== END ==
LOC: M RAD 07:48
PROVIDERS: ATTEND Otolaryngology
DX: C13.9 Malignant neoplasm of hypopharynx, unspecified (principal)

== ENCOUNTER → 2024-10-02 | Outpatient (CLI) | payer OTHER, MEDICARE ==
[~2024-10-02] MED LIST changes: +ISOVUE-370 76% 100 ML VIAL As Ordered ONE
== END ==
LOC: M RAD 10:10
DX: C13.9 Malignant neoplasm of hypopharynx, unspecified (principal)
CPT/HCPCS: 70491; 82565; Q9967

== ENCOUNTER → 2024-11-22 | Outpatient (CLI) | payer OTHER, MEDICARE ==
[~2024-11-22] MED LIST changes: -ISOVUE-370 76% 100 ML VIAL As Ordered ONE; +OLAN1TAB16 PO
== END ==
LOC: M ONCR 14:24
PROVIDERS: ATTEND General Practice
DX: C12 Malignant neoplasm of pyriform sinus (principal); C01 Malignant neoplasm of base of tongue; Z87.891 Personal history of nicotine dependence; Z92.21 Personal history of antineoplastic chemotherapy; Z92.3 Personal history of irradiation; Z90.02 Acquired absence of larynx; Z79.899 Other long term (current) drug therapy

== ENCOUNTER → 2024-12-02 | Outpatient (REF) | payer OTHER, MEDICARE ==
[~2024-12-02] MED LIST changes: +CALC1CAP31 PO; +CALC250T PO; +CHOL10007 PO; +GABA-1171 PO; +LIOT5TAB6 PO; +MAGN400T33 PO; +SYNT150T PO; +TAMS-18 PO
[2024-12-02 14:36] LABS: INR 1.04
[2024-12-02 18:26] LABS: PHOSPHORUS LEVEL 3.9 MG/DL (2.4-5.1)
[2024-12-02 18:29] LABS: TOTAL T3 186.1 NG/DL (60.0-181.0)
== END ==
LOC: M LAB REF 14:14
PROVIDERS: ATTEND Family Medicine
DX: C13.9 Malignant neoplasm of hypopharynx, unspecified (principal); E03.9 Hypothyroidism, unspecified

== ENCOUNTER → 2024-12-20 | Outpatient (RCR) | payer OTHER, MEDICARE | LOC: M ONCR 11-28 13:57 | PROVIDERS: ATTEND General Practice | DX: Z51.0 Encounter for antineoplastic radiation therapy (principal); C13.8 Malignant neoplasm of overlapping sites of hypopharynx ==

== ENCOUNTER → 2024-12-26 | Outpatient (REF) | payer OTHER, MEDICARE ==
[2024-12-26 16:25] LABS: CALCIUM LEVEL 9.5 MG/DL (8.3-10.6); CARBON DIOXIDE LEVEL 29 MMOL/L (20-31); CHLORIDE LEVEL 100 MMOL/L (98-107); CREATININE FOR GFR 0.64 MG/DL (0.70-1.30); FREE T4 1.55 NG/DL (0.89-1.76); GLOMERULAR FILTRATION RATE > 90.0 (>49); MAGNESIUM LEVEL 1.7 MG/DL (1.8-2.4); PHOSPHORUS LEVEL 4.2 MG/DL (2.4-5.1); POTASSIUM SERUM 4.5 MMOL/L (3.5-5.1); PTH INTACT 8.1 PG/ML (18.5-88.0); SODIUM LEVEL 137 MMOL/L (136-145)
[2024-12-26 16:28] LABS: TOTAL T3 100.7 NG/DL (60.0-181.0)
== END ==
LOC: M LAB REF 15:31
PROVIDERS: ATTEND Internal Medicine Endocrinology, Diabetes & Metabolism
DX: E03.9 Hypothyroidism, unspecified (principal); E20.9 Hypoparathyroidism, unspecified

== ENCOUNTER 2025-01-15 15:24 | Outpatient (RCR) | payer OTHER, MEDICARE ==
[~2025-01-15 15:24] MED LIST changes: +LIDO100S29 PO; +SILV40CR TOP
== END 2025-01-19 ==
LOC: M ONCR 15:24
PROVIDERS: ATTEND General Practice
DX: Z51.0 Encounter for antineoplastic radiation therapy (principal); C13.8 Malignant neoplasm of overlapping sites of hypopharynx

== ENCOUNTER 2025-01-28 15:39 | Outpatient (RCR) | payer OTHER, MEDICARE ==
[2025-02-17] MEDS ORDERED: LIDO100S29 PO (10:52)
== END 2025-02-19 ==
LOC: M ONCR 15:39
PROVIDERS: ATTEND General Practice
DX: Z51.0 Encounter for antineoplastic radiation therapy (principal); C13.8 Malignant neoplasm of overlapping sites of hypopharynx

== ENCOUNTER → 2025-02-11 | Outpatient (CLI) | payer OTHER, MEDICARE | LOC: M ONCR 15:32 | PROVIDERS: ATTEND General Practice | DX: L59.8 Other specified disorders of the skin and subcutaneous tissue related to radiation (principal); Z93.0 Tracheostomy status; Z92.3 Personal history of irradiation ==